=== PATIENT | male | born 1945 | race Caucasian/White ===

== ENCOUNTER 2016-06-20 16:43 | Inpatient (IN) ==
[2016-06-20] MEDS ORDERED: Naloxone 0.4 MG/ML INJ IVP PRN (21:33)
[2016-06-20] MEDS ORDERED: D5% in Water 1,000 ML IV PRN (21:59)
[2016-06-20] MEDS ORDERED: *HR* Dextrose 50 % in Water (Syg) 50 ML SYRINGE IVP PRN (21:59)
[2016-06-20] MEDS ORDERED: Dextrose Gel 15 GM PO PRN ×2 (21:59)
[2016-06-20] MEDS ORDERED: 0.9 % Sodium Chloride 1,000 ML IVC SCH (22:00)
[2016-06-20] MEDS ORDERED: *HR* Heparin 5,000 UNIT/ML VIAL IVP PRN ×2 (22:09)
[2016-06-20 22:13] LABS: ABG Base Excess 3.8 mEq/L (-2.0 to 3.0); ABG HCO3 33.2 mEQ/L (21-27); ABG Oxygen Saturation 97 % (95-98); ABG PH 7.22 pH Units (7.32-7.45); ABG PO2 113 mmHg (85-104); ABG TCO2 35.7 mEq/L (20-26)
[2016-06-20 22:16] LABS: ABG PCO2 81 mmHg (35-45); Blood Gas FiO2 50 %
[2016-06-20 22:29] LABS: Potassium 5.1 mEq/L (3.5-4.5)
[2016-06-20 22:30] LABS: Albumin 3.1 g/dL (3.5-5.0); Albumin/Globulin Ratio 0.7 (1.1-2.2); Bilirubin,Total 0.4 mg/dL (0.2-1.2); Calcium 9.3 mg/dL (8.6-10.8); Globulin 4.5 g/dL (2.4-3.5); Total Protein 7.6 g/dL (6.0-8.3)
--- NOTE | 2016-06-20 22:47 | Internal Med History&Physical ---
<Gail De Jesus - Last Filed: 06/21/16 00:12> Date of Encounter: 06/21/16 Time of Encounter: 21:30 Assessment and Plan (1) Acute and chronic respiratory failure with hypercapnia Current visit: No Status: Acute 1 according to medical records patient aspirated after vomiting, and on then liquids. His wrists to assess declined at outlying facility requiring supplemental oxygen eventually placed on BiPAP. ABG pH 7.22 CO2 81, O2 113 bicarbonate 35. We will continue with BiPAP will recheck ABG in 2 hours. Patient is presently DNR CCA with discussed with patient cared status and wishes concerning intubation. 2 bronchodilators 3 make patient nothing by mouth 4 recheck chest x-ray 5 modified barium swallow once stable (2) Sepsis Current visit: Yes Status: Acute 1 patient presented with respiratory rate greater than 20 white count 13.1 acute respiratory failure requiring BiPAP as well as a creatinine greater than 2. Patient is positive for UTI as well as possibly aspiration pneumonia We will obtain a lactate. We will obtain blood cultures as well as urine culture 2 continuous cardiac monitoring 3 monitor intake and output 4. Coverage with Zosyn and Levaquin. 5 IV fluids Qualifiers: Sepsis type: sepsis due to unspecified organism Qualified Code(s): A41.9 - Sepsis, unspecified organism (3) Pneumonia Current visit: Yes Status: Acute 1 chest x-ray 0 6:00-bilateral perihilar D 16 to the upper and lower lobes. She has episode of vomiting as well as had difficulty swallowing thin liquids. Experiencing respiratory distress requiring BiPAP. Elevated white count 13.1. Blood cultures have been obtained 2 due to patient's renal status will give really dosed antibiotics of Zosyn and Levaquin 3 bronchodilators Qualifiers: Pneumonia type: aspiration pneumonia Aspiration pneumonia type: due to vomit Laterality: bilateral Lung location: unspecified part of lung Qualified Code(s): J69.0 - Pneumonitis due to inhalation of food and vomit (4) UTI (urinary tract infection) Current visit: No Status: Acute Patient being treated for UTI urine culture preliminary 06/19/16 gram-negative rods. Will obtain urine culture to confirm 2 continue with antibiotic treatment Zosyn/levaquin Qualifiers: Urinary tract infection type: site unspecified Hematuria presence: without hematuria Qualified Code(s): N39.0 - Urinary tract infection, site not specified (5) Hyperkalemia Current visit: Yes Status: Acute 1 percent with hyperkalemia potassium was 5.6. Repeat potassium down to 5.1. It appears that this is trending down and we will continue to monitor and administer Kayexalate albuterol calcium gluconate as needed 2 continue with cardiac monitoring (6) Acute on chronic renal failure Current visit: Yes Status: Acute 1. CKd3- Recent creatinine is 3.24 which is sick patient's baseline is around 1.5-2. Suspect this is related to diuretic use. We will hold diuretics as well as lisinopril and metoprolol Continue to monitor creatinine 2 continue with IV fluids 3 we will avoid nephrotoxins renal dose all antibiotics 4 monitor intake and output 5 daily weights 6 monitor electrolytes (7) DM2 (diabetes mellitus, type 2) Current visit: No Status: Acute 1 patient is on basal as well as metformin. We will hold metformin for now will place patient on Accu-Cheks every 6 hours due to nothing by mouth with a sliding scale will hold basal insulin 2 patient is nothing by mouth diabetic diet when patient can eat Qualifiers: Diabetes mellitus complication status: with circulatory complication Diabetes mellitus complication detail: with other circulatory complications Diabetes mellitus nursing home insulin use: with nursing home use Qualified Code(s) : E11.59 - Type 2 diabetes mellitus with other circulatory complications; Z79.4 - terminal worker (current) use of insulin (8) Atrial fibrillation Current visit: Yes Status: Acute Patient is presently in atrial fibrillation with controlled rate. Is on Coumadin for anticoagulation. We will hold Coumadin for now and place patient on heparin drip 2 we will hold meds for now-swallow eval- then resume. May need to use IV meds for rate control Qualifiers: Atrial fibrillation type: chronic Qualified Code(s): I48.2 - Chronic atrial fibrillation (9) DVT prophylaxis Current visit: Yes Status: Acute Patient on heparin drip Internal Medicine - H&P: HPI Chief complaint: SOB Admitted From: Hospital to Hospital Transfer Plans for Post Hospital Care: Transfer Group Home Facility History of present illness: Mr. Sandoval is a 71 year old male past medical history atrial fibrillation CHF COPD coronary artery disease diabetes GERD hyperlipidemia hypertension [place] CKD. Information obtained from medical records as well as nursing staff due to patient's respiratory status. According to staff patient resides at [facility] that he had an altered mental status was transferred to [facility] or evaluation. He was found patient had a UTI as well as dehydrated is admitted for further observation. According to medical records it appears the patient may have aspirated, there was also a decline in patient's renal function. The patient's respiratory status declined requiring BiPAP lab work revealed an elevated white count at 13.1 potassium 5.6 BUN 80 creatinine 3.24 glucose 251. He was transferred to [facility] for further treatment. Presently the patient appears in mild respiratory distress with labored respirations oxygen saturation drops to 88 with position change. He can only speak in short sentences. He is on BiPAP 10/6 FiO2 50% oxygen saturation 96% at rest. Lungs sounds are diminished with faint expiratory wheeze. He is alert oriented and following commands at this time. He denies any chest pain nausea palpitations. EKG ABG chest x-ray have been ordered stat. Reviewed this case with who agrees with plan. Past Med Surg Social Fam HX - Past Medical History Medical history: atrial fibrillation, CHF, COPD, coronary artery disease, diabetes, GERD, hyperlipidemia, hypertension, myocardial infarction, peripheral artery disease, renal disease, other Psychiatric history: anxiety - Past Surgical History Surgical History: other - Social History Smoking Status: Former smoker Smokeless Tobacco Status: No Alcohol use: none Drug use: none - Family History Mother Adopted: No Family Member Ethnicity: Non- Living Status: Hx Family Cardiac Disorders: No Hx Family Respiratory Disorders: No Hx Family Cancer: Yes Hx Family GI Disorders: No Hx Family Endocrine Disorder: No Hx Family Neuromuscular Disorders: No Hx Family Neurologic Disorders: No Hx Family HEENT Disorders: No Hx Family Autoimmune Disorders: No Internal Medicine - H&P: Meds Carvedilol [Coreg] 25 mg PO BID 12/14/14 [History] Isosorbide MONOnitrate (24 HR) [Imdur] 120 mg PO DAILY 12/14/14 [History] Lisinopril [Zestril] 40 mg PO DAILY 12/14/14 [History] Omeprazole [PriLOSEC] 20 mg PO DAILY 12/14/14 [History] Atorvastatin [Lipitor] 20 mg PO HS 01/21/15 [History] Citalopram [CeleXA] 20 mg PO DAILY 01/21/15 [History] Magnesium Oxide [Mag-Ox] 400 mg PO BID 01/21/15 [History] Warfarin [Coumadin] 9 mg PO DAILY 01/21/15 [History] Ipratropium/Albuterol Neb [Duoneb] 3 ml IH Q6HR 02/13/15 [History] L. Acidophilus/Pectin, [place] [Acidophilus Probiotic Capsule] 1 each PO BID [History] Ferrous Sulfate 325 mg PO DAILY 03/16/15 [History] Furosemide [Lasix] 80 mg PO BID 03/16/15 [History] Gabapentin [Neurontin] 300 mg PO TID 03/16/15 [History] Diltiazem CD (24hr) [Cardizem CD] 180 mg PO DAILY 04/16/15 [History] Insulin ASPART [NovoLOG] 6 unit SQ TIDWM 04/16/15 [History] Vitamin B Complex/Vit C/Vit E [Stresstab] 1 tab PO DAILY 04/16/15 [History] Docusate [Colace] 100 mg PO BID PRN #0 capsule 04/25/15 [Rx] Montelukast [Singulair] 10 mg PO DAILY tablet 04/25/15 [Rx] Spironolactone [Aldactone] 25 mg PO DAILY tablet 04/25/15 [Rx] Cholecalciferol (Vitamin D3) [Vitamin D] 50,000 unit PO QMONTH 03/21/16 [History ] Insulin DETEMIR [Levemir] 60 unit SQ HS 03/21/16 [History] Metformin [Glucophage] 500 mg PO DAILY 03/21/16 [History] Tizanidine HCl [Zanaflex] 2 mg PO QID 03/21/16 [History] Fluticasone/Salmeterol [Advair 500-50 Diskus] 1 each IH BID 06/19/16 [History] Promethazine [Phenergan] 25 mg RC Q4H PRN 06/19/16 [History] Allergies No Known Allergies Allergy (Verified 03/16/15 20:15) ROS unobtainable: other All Systems PM: A 10-system review of systems was performed and is negative for pertinent findings except as documented above in the HPI. - Constitutional Vitals: Temp Pulse Resp BP Pulse Ox 99.4 F 89 23 138/81 96 06/20/16 21:19 06/20/16 21:19 06/20/16 21:19 06/20/16 21:19 06/20/16 21:19 General appearance: Present: mild distress, A&O X 3, morbidly obese - Head Head exam: Present: atraumatic, normocephalic - Neck Neck exam general surgery: Present: supple, trachea midline. Absent: lymphadenopathy - Respiratory Respiratory exam: Present: decreased breath sounds, respiratory distress, wheezes. Absent: accessory muscle use, rales, rhonchi - Cardiovascular Cardiovascular exam: Present: RRR, +S1, +S2. Absent: diastolic murmur, gallop, rubs, systolic murmur - GI/Abdominal GI/Abdominal exam: Present: normal bowel sounds, soft, no peritoneal signs. Absent: distended, tenderness - Extremities Exam Extremities exam: Present: warm, radial pulses palpable and symetrical. Absent : calf tenderness, cyanotic, pedal edema Additional comments: Right BKA - Neurological Exam Neurological exam: Present: CN II-XII intact, oriented X3, no focal deficits. Absent: pronater drift, facial droop, speech deficit - Skin Skin exam: Present: dry, intact Internal Med - H&P Results - Labs CBC & Chem 7: 06/20/16 22:54 06/20/16 22:06 Labs: BMP 06/20/16 22:06 Sodium 138 Potassium 5.1 H Chloride 100 Carbon Dioxide 26 BUN 91 H Creatinine 3.66 H Glucose 167 H Calcium 9.3 Liver Function 06/20/16 Range/Units 22:06 Total Bilirubin 0.4 (0.2-1.2) mg/dL AST 13 (5-34) Units/L ALT 14 (0-55) Units/L Alkaline Phosphatase 73 (38-126) Units/L Albumin 3.1 L (3.5-5.0) g/dL - ABG Interpretation ABG results: 06/20/16 22:00 ABG pH 7.22 L ABG pCO2 81 H* ABG pO2 113 H ABG HCO3 33.2 H ABG Total CO2 35.7 H ABG O2 Saturation 97 ABG Base Excess 3.8 H Interpretation: respiratory acidosis - EKG Data EKG comments: 06/20/16 23:06 Atrial fibrillation-I reviewed this EKG with - Impressions ITS Impressions Chest X-Ray 06/20/16 21:12 IMPRESSION: Limited portable chest with low lung volumes. Cardiomegaly with no overt failure or focal pulmonary process. D/ / Braxton Lowe MD / Braxton Lowe MD Interpreting Provider: Braxton Lowe MD - Diagnostic Studies Chest x-ray Additional comments: Per radiology read 06/20/16 0 6:00 Bilateral perihilar opacities extending to the upper and lower lobes. <ClaudiojasonBilly - Last Filed: 06/21/16 02:17> Date of Encounter: 06/21/16 - Constitutional Vitals: Temp Pulse Resp BP Pulse Ox 98.9 F 87 21 142/81 95 06/21/16 00:18 06/21/16 00:18 06/21/16 00:18 06/21/16 00:18 06/21/16 00:18 General appearance: Present: mild distress, A&O X 3, morbidly obese - Head Head exam: Present: atraumatic, normal inspection - Eye Eye exam: Present: EOMI, PERRL. Absent: scleral icterus Pupils: Present: normal accommodation - ENT ENT exam: Present: mucous membranes dry, normal external ear exam Additional comments: Bipap mask in place - Neck Neck exam general surgery: Present: full ROM, supple - Respiratory Respiratory exam: Present: decreased breath sounds, respiratory distress (mild to moderate), wheezes, tachypnea. Absent: chest wall tenderness - Cardiovascular Cardiovascular exam: Present: irregular rhythm. Absent: +S1, +S2, systolic murmur - GI/Abdominal GI/Abdominal exam: Present: normal bowel sounds, soft. Absent: hepatomegaly, splenomegaly, tenderness - Extremities Exam Extremities exam: Present: warm. Absent: tenderness - Back Exam Back exam: Absent: CVA tenderness (L), CVA tenderness (R) - Neurological Exam Neurological exam: Present: CN II-XII intact, oriented X3, no focal deficits - Psychiatric Psychiatric exam: Present: normal affect, normal mood - Skin Skin exam: Present: dry, warm. Absent: rash Internal Med - H&P Results - Labs CBC & Chem 7: 06/20/16 22:54 06/21/16 00:30 Labs: Short CBC 06/20/16 Range/Units 22:54 WBC 12.6 H (4.3-11.1) K/mcL Hgb 10.5 L (12.9-16.9) g/dL Hct 35.1 L (37.5-50.1) % Plt Count 200 (140-400) K/mcL BMP 06/20/16 06/21/16 22:06 00:30 Sodium 138 Potassium 5.1 H 5.0 H Chloride 100 Carbon Dioxide 26 BUN 91 H Creatinine 3.66 H Glucose 167 H Calcium 9.3 Cardiac Enzymes 06/20/16 Range/Units 22:54 Troponin I 0.04 H* (0-0.03) ng/mL Liver Function 06/20/16 Range/Units 22:06 Total Bilirubin 0.4 (0.2-1.2) mg/dL AST 13 (5-34) Units/L ALT 14 (0-55) Units/L Alkaline Phosphatase 73 (38-126) Units/L Albumin 3.1 L (3.5-5.0) g/dL - ABG Interpretation Interpretation: ABG interpreted by me ABG results: 06/20/16 22:00 ABG pH 7.22 L ABG pCO2 81 H* ABG pO2 113 H ABG HCO3 33.2 H ABG Total CO2 35.7 H ABG O2 Saturation 97 ABG Base Excess 3.8 H Interpretation: respiratory acidosis - EKG Data -: EKG Interpreted by Myself - Impressions ITS Impressions Chest X-Ray 06/20/16 21:12 IMPRESSION: Limited portable chest with low lung volumes. Cardiomegaly with no overt failure or focal pulmonary process. D/ / Braxton Lowe MD / Braxton Lowe MD Interpreting Provider: Braxton Lowe MD - Attending Attestation I discussed the patient [place], PMH, lab data, exam findings, and plan with Gail De Jesus. I then saw and examined patient independently as well. Pt is in mild to moderate respiratory distress, even on BiPap. I explained to him the nature of his illness, including respiratory failure. I informed him that if he fails BiPap, then the next step would be to proceed with intubation and mechanical ventilation or palliative/comfort care. I asked him to clarify his code status. Once I explained the above, he does agree and wish to proceed with FULL CODE. As such, I'll change his Code status. I reviewed his labs, images, and EKG. I requested another ABG a few hours after the initial ABG upon presentation. We will continue with treatment as detailed by Gail. Should his status decline, we will proceed with appropriate measures. Other than my comments above and noted exam findings, I agree with Gail's assessment and plan.
[2016-06-20] MEDS ORDERED: Levofloxacin 750 MG/150 ML 750 MG/150 ML BAG IVPB SCH (23:00)
[2016-06-20 23:05] LABS: Hematocrit 35.1 % (37.5-50.1); Hemoglobin 10.5 g/dL (12.9-16.9); Mean Corpuscular HGB Conc 29.9 g/dL (31.6-35.5); Mean Corpuscular Hemoglobin 25.9 pg (28.0-33.3); Mean Corpuscular Volume 86.5 fL (83.0-100.0); Mean Platelet Volume 10.1 fL (9.4-12.4); Platelet Count 200 K/mcL (140-400); Red Blood Count 4.06 M/mcL (4.19-5.50); Red Cell Distribution Width 15.5 % (11.5-14.5)
[2016-06-20 23:09] LABS: INR 1.6; Prothrombin Time 17.1 Seconds (9.4-12.1)
[2016-06-20 23:12] LABS: Activated Partial Thrombo Time 32.3 Seconds (26.0-36.0)
[2016-06-20] MEDS: Heparin 25,000 UNIT/500 ML D5W 25,000 UNIT/500 ML MLS IVC SCH (23:17)
[2016-06-20] MEDS: Ipratropium/Albuterol Neb 3 ML IH SCH (23:45)
[2016-06-20] MEDS: Piperacillin/Tazobactam 3.375 GM in D5% in Water (Mini-Bag+) 100 ML IVPB SCH (23:54)
[2016-06-21] MEDS: Albuterol 2.5 MG/3 ML NEBULIZER IH PRN ×2 (01:13→20:49)
[2016-06-21] MEDS: Insulin LISPRO 300 UNITS/3 ML VIAL SQ SCH ×4 (01:48→18:00)
[2016-06-21 04:56] LABS: ABG Base Excess 3.2 mEq/L (-2.0 to 3.0); ABG HCO3 32.1 mEQ/L (21-27); ABG Oxygen Saturation 96 % (95-98); ABG PH 7.24 pH Units (7.32-7.45); ABG PO2 96 mmHg (85-104); ABG TCO2 34.4 mEq/L (20-26)
[2016-06-21 04:57] LABS: Blood Gas FiO2 40 %; Blood Gas PEEP 6 cm H2O; Blood Gas Respiration Rate 16
[2016-06-21 04:58] LABS: ABG PCO2 75 mmHg (35-45)
[2016-06-21] MEDS: Ipratropium/Albuterol Neb 3 ML IH SCH ×4 (05:10→23:57)
[2016-06-21 06:23] LABS: Basophils # 0.1 K/mcL (0.0-0.2); Basophils % 0.5 %; Eosinophils # 0.2 K/mcL (0.0-0.6); Hemoglobin 9.6 g/dL (12.9-16.9); Immature Granulocytes % 1.2 % (0-4); Lymphocytes % 8.9 %; Mean Corpuscular Hemoglobin 25.9 pg (28.0-33.3); Mean Corpuscular Volume 86.3 fL (83.0-100.0); Mean Platelet Volume 10.3 fL (9.4-12.4); Monocytes # 0.5 K/mcL (0.0-1.3); Neutrophils # 9.3 K/mcL (1.6-8.9); Platelet Count 175 K/mcL (140-400); Red Blood Count 3.71 M/mcL (4.19-5.50); Red Cell Distribution Width 15.6 % (11.5-14.5); Segmented Neutrophils % 83.4 %
[2016-06-21 06:39] LABS: Calcium 9.2 mg/dL (8.6-10.8); Magnesium 1.9 mg/dL (1.6-2.6); Phosphorous 4.2 mg/dL (2.3-4.7); Potassium 4.7 mEq/L (3.5-4.5)
--- NOTE | 2016-06-21 08:15 | Internal Med Progress Note ---
Date of Encounter: 06/21/16 Time of Encounter: 08:13 - Assessment and plan (1) Acute on chronic renal failure Current Visit: Yes Status: Acute Assessment and plan: Nonoliguric JONELLE on CKD stage III. Previously seen by Dr. Lin for [facility] about 3 yr ago for JONELLE in the setting of sepsis and vanco toxicity Presently with a UTI, acute respiratory failure on BiPAP and acute encephalopathy Mild hyperkalemia s/p Kayexalate. Follow retroperitoneal USS Urine culture with Proteus Mirabilis ESBL, E. Coli ESBL Sensitive to Amikacin, Cefoxitin, Ertaenem, Meropenem, Zosyn, Tobramycin Resistant to Levofloxacin which is patient's current regimen Continue ZOsyn at same dose Follow renal USS, r/p pyelo/perinephric abscess (2) Atrial fibrillation Current Visit: Yes Status: Chronic Assessment and plan: HR controlled, Resume patient's home meds Patient on warfarin, resume same Hold heparin drip for now Qualifiers: Atrial fibrillation type: chronic Qualified Code(s): I48.2 - Chronic atrial fibrillation (3) Hyperkalemia Current Visit: Yes Status: Acute Assessment and plan: Improving Renal on board, continue medical management Hold ACEI, HOld spironolactone (4) COPD with acute exacerbation Current Visit: Yes Status: Acute Assessment and plan: Continue duonebs, current regimen (5) Chronic indwelling Olmos catheter Current Visit: Yes Status: Chronic (6) DM2 (diabetes mellitus, type 2) Current Visit: Yes Status: Chronic Assessment and plan: FS acceptable Continue current regimen and sliding scale Hold levemir till patient starts to adequately tolerate po Qualifiers: Diabetes mellitus complication status: with circulatory complication Diabetes mellitus complication detail: with other circulatory complications Diabetes mellitus 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 Qualified Code(s) : E11.59 - Type 2 diabetes mellitus with other circulatory complications; Z79.4 - dedicated intermodal truck driver (current) use of insulin (7) History of CHF (congestive heart failure) Current Visit: Yes Status: Chronic (8) History of hyperlipidemia Current Visit: Yes Status: Chronic (9) Morbid obesity Current Visit: Yes Status: Chronic Qualifiers: Obesity type: with alveolar hypoventilation Qualified Code(s): 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 transplanted heart: [place] heart Associated angina: without angina Qualified Code(s): I25.10 - Atherosclerotic heart disease of [place] coronary artery without angina pectoris (11) PAD (peripheral artery disease) Current Visit: Yes Status: Chronic (12) Dysphagia Current Visit: Yes Status: Acute Assessment and plan: Speech eval Attempt restarting home meds Qualifiers: Dysphagia type: unspecified Qualified Code(s): R13.10 - Dysphagia, unspecified - Subjective Interval history: Initial encounter 72-year-old male with morbid obesity, JESS/OHS, chronic respiratory male, 60 daily stage III, type 2 diabetes mellitus, atrial fibrillation, CAD, coronary artery disease, GERD, hyperlipidemia, hypertension, BPH with chronic indwelling urethral catheter Patient was transferred from [facility] for management of acute on chronic respiratory acidosis, acute on chronic hypercarbic respiratory failure, JONELLE on CKD III, and complicated urinary tract infection. Seen at bedside, along with RN. On BiPAP. Chart review reveals improvement in ABG 7.31(7.24), PCO2 59(75), PO2 83(96), leukocytosis with left shift, JONELLE on CKD, mild hyperkalemia, adynamic stable troponin CXR with no infiltrates - Constitutional Vitals: Temp Pulse Resp BP Pulse Ox 98.2 F 90 20 142/90 96 06/21/16 04:19 06/21/16 04:21 06/21/16 05:10 06/21/16 05:10 06/21/16 05:10 General appearance: Present: A&O X 3, morbidly obese, pleasant, no acute distress - Head Head exam: Present: atraumatic, normocephalic - Eye Eye exam: Present: PERRL, conjuntiva pink, sclera anicteric - ENT ENT exam: Present: mucous membranes dry - Neck Additional comments: Large neck - Respiratory Additional comments: Equal Chest movements bilaterally lungs are clear to auscultation bilaterally. - Cardiovascular Cardiovascular exam: Present: distant heart sounds, irregular rhythm, +S1, +S2. Absent: systolic murmur - GI/Abdominal Additional comments: Obese, soft, nontender, no palpable hepatosplenomegaly. Bowel sounds are present and normoactive. - Additional comments: Indwelling Olmos draining clear urine. - Extremities Exam Additional comments: Status post right above knee amputation, stump is clean and dry Left lower extremity with no pedal edema. - Neurological Exam Neurological exam: Present: alert, oriented X3, no focal deficits, strengths equal and symetr throughout. Absent: pronater drift, facial droop, speech deficit - Skin Skin exam: Present: dry, intact Internal Medicine: Result - Labs CBC & Chem 7: 06/21/16 06:11 06/21/16 06:11 Labs: Short CBC 06/20/16 06/21/16 Range/Units 22:54 06:11 WBC 12.6 H 11.2 H (4.3-11.1) K/mcL Hgb 10.5 L 9.6 L (12.9-16.9) g/dL Hct 35.1 L 32.0 L (37.5-50.1) % Plt Count 200 175 (140-400) K/mcL Neutrophils # 9.3 H (1.6-8.9) K/mcL BMP 06/20/16 06/21/16 06/21/16 22:06 00:30 06:11 Sodium 138 137 Potassium 5.1 H 5.0 H 4.7 H Chloride 100 101 Carbon Dioxide 26 26 BUN 91 H 84 H Creatinine 3.66 H 3.09 H Glucose 167 H 204 H Calcium 9.3 9.2 Cardiac Enzymes 06/20/16 06/21/16 Range/Units 22:54 06:11 Troponin I 0.04 H* 0.04 H* (0-0.03) ng/mL Liver Function 06/20/16 Range/Units 22:06 Total Bilirubin 0.4 (0.2-1.2) mg/dL AST 13 (5-34) Units/L ALT 14 (0-55) Units/L Alkaline Phosphatase 73 (38-126) Units/L Albumin 3.1 L (3.5-5.0) g/dL - ABG Interpretation ABG results: ABG ABG pH 7.24 pH Units (7.32-7.45) L 06/21/16 04:45 ABG pCO2 75 mmHg (35-45) H* 06/21/16 04:45 ABG pO2 96 mmHg (85-104) 06/21/16 04:45 ABG O2 Saturation 96 % (95-98) 06/21/16 04:45 PT/INR, D-dimer PT 17.1 Seconds (9.4-12.1) H 06/20/16 22:54 - Impressions Impressions Chest X-Ray 06/20/16 21:12 IMPRESSION: Limited portable chest with low lung volumes. Cardiomegaly with no overt failure or focal pulmonary process. D/ / Braxton Lowe MD / Braxton Lowe MD Interpreting Provider: Braxton Lowe MD Consult Discharge Plan - Plan Referrals: Joanna Chacko MD [Primary Care Provider] -
[2016-06-21 08:36] LABS: ABG Base Excess 2.6 mEq/L (-2.0 to 3.0); ABG HCO3 29.7 mEQ/L (21-27); ABG Oxygen Saturation 95 % (95-98); ABG PCO2 59 mmHg (35-45); ABG PH 7.31 pH Units (7.32-7.45); ABG PO2 83 mmHg (85-104); ABG TCO2 31.5 mEq/L (20-26); Blood Gas FiO2 40 %
[2016-06-21] MEDS ORDERED: Levofloxacin 750 MG/150 ML 750 MG/150 ML BAG IVPB SCH (09:00)
[2016-06-21] MEDS: Heparin 25,000 UNIT/500 ML D5W 25,000 UNIT/500 ML MLS IVC SCH (10:00)
--- NOTE | 2016-06-21 10:04 | Nephrology Consult Note ---
Date of Encounter: 06/21/16 Time of Encounter: 08:15 Assessment and Plan (1) Acute kidney injury Current Visit: Yes Status: Acute Nonoliguric JONELLE on CKD stage III. Previously seen by Dr. Lin for [facility] about 3 yr ago for JONELLE in the setting of sepsis and vanco toxicity Presently with a UTI, acute respiratory failure on BiPAP and acute encephalopathy Mild hyperkalemia s/p Kayexalate. SCr trending better with IVF: recommend continuing the volume expansion as tolerated No urgent need for S[employer]. Hx of chronic indwelling grajeda catheter, but with the UTI, I will check a renal U/S to look for echogenicity or perirenal fluid (that might be seen with pyelonephritis) Follow a renal protective strategy: dose Rx by GFR, avoid NSAIDs, Bactrim, Contrast as able. Strict I/Os and Daily weights. Thank you for consulting the [facility] group. Will follow with you. (2) Acute encephalopathy Current Visit: Yes Status: Acute (3) Acute on chronic renal failure Current Visit: Yes Status: Acute (4) Hyperkalemia Current Visit: Yes Status: Acute (5) Pneumonia Current Visit: Yes Status: Acute Qualifiers: Pneumonia type: aspiration pneumonia Aspiration pneumonia type: due to vomit Laterality: bilateral Lung location: unspecified part of lung Qualified Code(s): J69.0 - Pneumonitis due to inhalation of food and vomit History of Present Illness - Reason for Consult Consult date: 06/21/16 Acute Kidney Injury, Chronic Kidney Disease Requesting physician: Remington Zuleta - Chief Complaint PNA and UTI - History of Present Illness Dawn Sandoval is a 71 y/o WM with a pmh of previously undiagnosed CKD, obesity, HTN and et al who presented with AMS, shortness of breath and incidental finding of JONELLE on CKD. He was on BiPAP and not able to provide any meaningful history. He was found to have a UTI at the outside ER. Past Med Surg Social Fam HX - Past Medical History Medical history: atrial fibrillation, CHF, COPD, coronary artery disease, diabetes, GERD, hyperlipidemia, hypertension, myocardial infarction, peripheral artery disease, renal disease, other Psychiatric history: anxiety - Past Surgical History Surgical History: other - Social History Smoking Status: Former smoker Smokeless Tobacco Status: No Alcohol use: none Drug use: none - Family History Mother Adopted: No Family Member Ethnicity: Non- Living Status: Hx Family Cardiac Disorders: No Hx Family Respiratory Disorders: No Hx Family Cancer: Yes Hx Family GI Disorders: No Hx Family Endocrine Disorder: No Hx Family Neuromuscular Disorders: No Hx Family Neurologic Disorders: No Hx Family HEENT Disorders: No Hx Family Autoimmune Disorders: No Medications and Allergies Carvedilol [Coreg] 25 mg PO BID 12/14/14 [History] Isosorbide MONOnitrate (24 HR) [Imdur] 120 mg PO DAILY 12/14/14 [History] Lisinopril [Zestril] 40 mg PO DAILY 12/14/14 [History] Omeprazole [PriLOSEC] 20 mg PO DAILY 12/14/14 [History] Atorvastatin [Lipitor] 20 mg PO HS 01/21/15 [History] Citalopram [CeleXA] 20 mg PO DAILY 01/21/15 [History] Magnesium Oxide [Mag-Ox] 400 mg PO BID 01/21/15 [History] Warfarin [Coumadin] 9 mg PO DAILY 01/21/15 [History] Ipratropium/Albuterol Neb [Duoneb] 3 ml IH Q6HR 02/13/15 [History] L. Acidophilus/Pectin, [place] [Acidophilus Probiotic Capsule] 1 cap PO BID 02/13 [History] Ferrous Sulfate 325 mg PO DAILY 03/16/15 [History] Furosemide [Lasix] 80 mg PO BID 03/16/15 [History] Gabapentin [Neurontin] 300 mg PO TID 03/16/15 [History] Diltiazem CD (24hr) [Cardizem CD] 180 mg PO DAILY 04/16/15 [History] Insulin ASPART [NovoLOG] 6 unit SQ TIDWM 04/16/15 [History] Vitamin B Complex/Vit C/Vit E [Stresstab] 1 tab PO DAILY 04/16/15 [History] Docusate [Colace] 100 mg PO BID PRN #0 capsule 04/25/15 [Rx] Montelukast [Singulair] 10 mg PO DAILY tablet 04/25/15 [Rx] Spironolactone [Aldactone] 25 mg PO DAILY tablet 04/25/15 [Rx] Cholecalciferol (Vitamin D3) [Vitamin D] 50,000 unit PO QMONTH 03/21/16 [History ] Insulin DETEMIR [Levemir] 60 unit SQ HS 03/21/16 [History] Tizanidine HCl [Zanaflex] 2 mg PO QID 03/21/16 [History] Fluticasone/Salmeterol [Advair 500-50 Diskus] 1 puff IH BID 06/19/16 [History] Promethazine [Phenergan] 25 mg RC Q4H PRN 06/19/16 [History] Metformin HCl [Metformin HCl ER] 500 mg PO DAILY 06/21/16 [History] Allergies No Known Allergies Allergy (Verified 03/16/15 20:15) Review of Systems ROS unobtainable: due to mental status Exam - Vital Signs Vital signs: Initial Vital Signs Resp Pulse Ox 20 95 06/20/16 20:45 06/20/16 20:45 Vital Signs - Last 8 Hours Temp Pulse Resp BP Pulse Ox 06/21/16 09:51 20 97 06/21/16 08:31 20 97 06/21/16 08:28 98.5 F 96 20 143/63 97 06/21/16 07:35 98.2 F 90 20 142/90 96 06/21/16 05:10 20 142/90 96 06/21/16 04:21 90 06/21/16 04:19 98.2 F 89 15 142/90 96 Intake and Output 06/20/16 06/21/16 06/21/16 23:59 07:59 15:59 Intake Total 460 / 460 0 / 0 Output Total 2074 Balance -1615 / -5 0 / 0 Intake: IV Fluids 460 / 460 Heparin 25,000 UNIT/500 360 / 360 ML D5W 25,000 unit In 500 ml @ 14 UNIT/KG/HR 45.22 mls/hr IVC .Q11H4M THOMAS Rx#:[id number] Zosyn 3.375 GM In 100 / 100 Dextrose 5% (Minibag+) 100 ML 100 ML @ 25 mls/hr IVPB Q12H THOMAS Rx#: [id number] Oral 0 / 0 0 / 0 Output: Catheter 2074 Other: Meal Breakfast Percent of Meal Consumed 0% Weight 161.5 kg 161.8 kg Blood Glucose* 168 213 Patient Weight 06/21/16 23:59 Weight 161.8 kg - General Appearance General appearance: well-developed, well-nourished, obese, moderate distress, frail EENT: ATNC, PERRL, mucous membranes dry Neck: supple Respiratory: wheezing, course breath sounds Cardiology: edema, regular rate, normal S1, normal S2 Gastrointestinal: normoactive bowel sounds, no tenderness, no guarding Integumentary: no rash, warm and dry Neurologic: no focal deficit, no asterixis Musculoskeletal: no deformities, no clubbing Psychiatric: cooperative Results - Lab Results 06/22/16 10:49 06/23/16 04:42 Most recent lab results ABG pH 7.31 pH Units (7.32-7.45) L 06/21/16 08:27 ABG pCO2 59 mmHg (35-45) H 06/21/16 08:27 ABG pO2 83 mmHg (85-104) L 06/21/16 08:27 ABG HCO3 29.7 mEQ/L (21-27) H 06/21/16 08:27 ABG O2 Saturation 95 % (95-98) 06/21/16 08:27 Calcium 9.2 mg/dL (8.6-10.8) 06/21/16 06:11 Phosphorus 4.2 mg/dL (2.3-4.7) 06/21/16 06:11 Magnesium 1.9 mg/dL (1.6-2.6) 06/21/16 06:11 I reviewed the above auto-generated data, including labs, meds, vitals and imaging. Consult Discharge Plan - Plan Referrals: Joanna Chacko MD [Primary Care Provider] - ([facility], NO PCP APPOINTMENT NEEDED)
[2016-06-21] MEDS ORDERED: Acetaminophen 325 MG TABLET PO PRN (11:25)
[2016-06-21] MEDS: Piperacillin/Tazobactam 3.375 GM in D5% in Water (Mini-Bag+) 100 ML IVPB SCH ×2 (11:30→22:45)
[2016-06-21] MEDS ORDERED: Acetaminophen IV 500 MG/50 ML INFUS..BTL IVPB ONE (12:05)
[2016-06-21] MEDS: Magnesium Oxide 400 MG TABLET PO SCH (19:51)
[2016-06-21] MEDS: tiZANidine 4 MG TABLET PO SCH (19:51)
[2016-06-21] MEDS: Gabapentin 300 MG CAPSULE PO SCH (19:51)
[2016-06-21] MEDS: *HR* Warfarin 3 MG TABLET PO SCH (19:51)
[2016-06-21] MEDS ORDERED: Acetaminophen 650 MG RECTAL SUPP RC PRN (20:36)
[2016-06-21] MEDS ORDERED: Insulin DETEMIR 100 UNIT/ML X5UNITS SQ SCH (21:00)
[2016-06-22] MEDS: Insulin LISPRO 300 UNITS/3 ML VIAL SQ SCH ×4 (00:38→17:46)
[2016-06-22] MEDS: Ipratropium/Albuterol Neb 3 ML IH SCH ×4 (04:11→22:57)
[2016-06-22 06:36] LABS: VBG HCO3 34.1 mEq/L (21-27); VBG PH 7.37 pH Units (7.32-7.42)
[2016-06-22 06:39] LABS: Basophils # 0.1 K/mcL (0.0-0.2); Basophils % 0.5 %; Eosinophils # 0.3 K/mcL (0.0-0.6); Eosinophils % 3.3 %; Hematocrit 32.4 % (37.5-50.1); Hemoglobin 9.9 g/dL (12.9-16.9); Immature Granulocytes % 0.7 % (0-4); Immature Platelets 5.2 % (1.1-6.1); Lymphocytes # 0.8 K/mcL (0.6-4.6); Mean Corpuscular HGB Conc 30.6 g/dL (31.6-35.5); Mean Corpuscular Hemoglobin 26.1 pg (28.0-33.3); Mean Corpuscular Volume 85.5 fL (83.0-100.0); Mean Platelet Volume 10.7 fL (9.4-12.4); Monocytes # 0.5 K/mcL (0.0-1.3); Monocytes % 5.5 %; Neutrophils # 7.8 K/mcL (1.6-8.9); Platelet Count 217 K/mcL (140-400); Red Blood Count 3.79 M/mcL (4.19-5.50); Red Cell Distribution Width 15.5 % (11.5-14.5)
[2016-06-22 06:41] LABS: INR 1.6; Prothrombin Time 17.5 Seconds (9.4-12.1)
[2016-06-22 06:44] LABS: Activated Partial Thrombo Time 28.1 Seconds (26.0-36.0)
[2016-06-22 07:00] LABS: Potassium 4.7 mEq/L (3.5-4.5)
[2016-06-22] MEDS ORDERED: *HR* Metoprolol 5 MG/5 ML VIAL IVP PRN (08:15)
[2016-06-22] MEDS: Magnesium Oxide 400 MG TABLET PO SCH ×2 (09:12→20:05)
[2016-06-22] MEDS: Isosorbide MONOnitrate (24 HR) 60 MG TAB.ER.24H PO SCH (09:13)
[2016-06-22] MEDS: Diltiazem CD (24hr) 180 MG CAPSULE PO SCH (09:13)
[2016-06-22] MEDS: tiZANidine 4 MG TABLET PO SCH ×4 (09:13→20:05)
[2016-06-22] MEDS: Gabapentin 300 MG CAPSULE PO SCH ×3 (09:14→20:05)
--- NOTE | 2016-06-22 09:31 | Internal Med Progress Note ---
Date of Encounter: 06/22/16 Time of Encounter: 09:30 - Assessment and plan (1) Acute on chronic renal failure Current Visit: Yes Status: Acute Assessment and plan: Nonoliguric JONELLE on CKD stage III. Improved with increasing Na Presently with ESBL UTI, acute respiratory failure on BiPAP and acute encephalopathy Renal USS pending Urine culture with Proteus Mirabilis ESBL, E. Coli ESBL Sensitive to Amikacin, Cefoxitin, Ertaenem, Meropenem, Zosyn, Tobramycin Resistant to Levofloxacin which is patient's current regimen Continue ZOsyn at same dose Follow renal USS, r/p pyelo/perinephric abscess Continue to monitor I/O Start 1/2 N-S Monitor chem (2) Atrial fibrillation Current Visit: Yes Status: Chronic Assessment and plan: HR controlled, Resume patient's home meds Patient on warfarin, resume same Start on heparin drip without bolus due to patient not receiving Warfarin Qualifiers: Atrial fibrillation type: chronic Qualified Code(s): I48.2 - Chronic atrial fibrillation (3) Hyperkalemia Current Visit: Yes Status: Acute Assessment and plan: Improving Renal on board, continue medical management Hold ACEI, HOld spironolactone (4) COPD with acute exacerbation Current Visit: Yes Status: Acute Assessment and plan: Continue duonebs, current regimen (5) Chronic indwelling Olmos catheter Current Visit: Yes Status: Chronic (6) DM2 (diabetes mellitus, type 2) Current Visit: Yes Status: Chronic Assessment and plan: FS acceptable Continue current regimen and sliding scale Hold levemir till patient starts to adequately tolerate po Qualifiers: Diabetes mellitus complication status: with circulatory complication Diabetes mellitus complication detail: with other circulatory complications Diabetes mellitus longitudinal float operator insulin use: with longitudinal float operator use Qualified Code(s) : E11.59 - Type 2 diabetes mellitus with other circulatory complications; Z79.4 - long term care social worker (current) use of insulin (7) History of CHF (congestive heart failure) Current Visit: Yes Status: Chronic (8) History of hyperlipidemia Current Visit: Yes Status: Chronic (9) Morbid obesity Current Visit: Yes Status: Chronic Qualifiers: Obesity type: with alveolar hypoventilation Qualified Code(s): 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 transplanted heart: rosebud heart Associated angina: without angina Qualified Code(s): I25.10 - Atherosclerotic heart disease of [place] coronary artery without angina pectoris (11) PAD (peripheral artery disease) Current Visit: Yes Status: Chronic (12) Dysphagia Current Visit: Yes Status: Acute Assessment and plan: Speech eval Attempt restarting home meds Qualifiers: Dysphagia type: unspecified Qualified Code(s): R13.10 - Dysphagia, unspecified - Subjective Interval history: 71-year-old male with morbid obesity, JESS/OHS, chronic respiratory male, 60 daily stage III, type 2 diabetes mellitus, atrial fibrillation, CAD, coronary artery disease, GERD, hyperlipidemia, hypertension, BPH with chronic indwelling urethral catheter Patient was transferred from [facility] for management of acute on chronic respiratory acidosis, acute on chronic hypercarbic respiratory failure, JONELLE on CKD III, and complicated urinary tract infection. He has been off BIPAP with stable O2 Sat and PCO2 has improved urine culture with ESBL Klebsiella and E.coli He is making urine I/O -~6L since admission CXR no infiltrates His Cr and GFR are improving but Na is slowly increasing He is seen at bedside Denies new complains Reports some improvement in breathing He continues to have some coughing with trial of po intake especially with medications Speech and Swallow has been consulted Patient did not get his po Warfarin last night Will start him on 0.45 saline and heparin drip Continue other mgt pending speech and swallow eval - Constitutional Vitals: Temp Pulse Resp BP Pulse Ox 98.2 F 86 18 163/94 93 L 06/22/16 07:48 06/22/16 07:48 06/22/16 07:48 06/22/16 07:48 06/22/16 07:48 General appearance: Present: A&O X 3, morbidly obese, pleasant, no acute distress - Head Head exam: Present: atraumatic, normocephalic - Eye Eye exam: Present: PERRL, conjuntiva pink, sclera anicteric Pupils: Present: PERRL - Neck Neck exam general surgery: Present: supple, trachea midline. Absent: lymphadenopathy - Respiratory Respiratory exam: Present: CTAB. Absent: accessory muscle use, rales, rhonchi, wheezes - Cardiovascular Cardiovascular exam: Present: irregular rhythm, +S1, +S2. Absent: JVD, systolic murmur - GI/Abdominal Additional comments: Obese, not tender, no palpably enlarged organs - Extremities Exam Additional comments: s/p R AKA, stump is clean No pedal edema on LLE Essentially normal inspection - Neurological Exam Neurological exam: Present: CN II-XII intact, oriented X3, no focal deficits. Absent: pronater drift, facial droop, speech deficit - Skin Skin exam: Present: dry Internal Medicine: Result - Labs CBC & Chem 7: 06/22/16 10:49 06/22/16 05:26 Labs: Short CBC 06/22/16 Range/Units 05:26 WBC 9.5 (4.3-11.1) K/mcL Hgb 9.9 L (12.9-16.9) g/dL Hct 32.4 L (37.5-50.1) % Plt Count 217 (140-400) K/mcL Neutrophils # 7.8 (1.6-8.9) K/mcL BMP 06/22/16 05:26 Sodium 145 D Potassium 4.7 H Chloride 107 Carbon Dioxide 29 BUN 57 H D Creatinine 1.94 H Glucose 187 H Calcium 10.0 Cardiac Enzymes 06/21/16 Range/Units 13:22 Troponin I 0.04 H* (0-0.03) ng/mL - ABG Interpretation ABG results: ABG ABG pH 7.31 pH Units (7.32-7.45) L 06/21/16 08:27 ABG pCO2 59 mmHg (35-45) H 06/21/16 08:27 ABG pO2 83 mmHg (85-104) L 06/21/16 08:27 ABG O2 Saturation 95 % (95-98) 06/21/16 08:27 PT/INR, D-dimer PT 17.5 Seconds (9.4-12.1) H 06/22/16 05:26 Consult Discharge Plan - Plan Referrals: Joanna Chacko MD [Primary Care Provider] -
[2016-06-22] MEDS: Heparin 25,000 UNIT/500 ML D5W 25,000 UNIT/500 ML MLS IVC SCH (10:28)
--- NOTE | 2016-06-22 10:29 | Event Note ---
Date of Encounter: 06/22/16 Time of Encounter: 10:27 Nephrology Chart Review SCr quickly improving. Large UOP noted, which appears to be an autodiuresis that is often seen during renal recovery. Of note, the serum Na was 145 and if the UOP persists, then he may become hypernatremic, so I recommend consider 1/ 2NS today. No need for APPRENTICE PAINTER HAND. Will continue to follow with you. Thank you.
[2016-06-22 10:56] LABS: Hematocrit 31.7 % (37.5-50.1); Hemoglobin 9.8 g/dL (12.9-16.9); Mean Corpuscular HGB Conc 30.9 g/dL (31.6-35.5); Mean Corpuscular Hemoglobin 26.3 pg (28.0-33.3); Mean Corpuscular Volume 85.2 fL (83.0-100.0); Mean Platelet Volume 10.3 fL (9.4-12.4); Platelet Count 197 K/mcL (140-400); Red Blood Count 3.72 M/mcL (4.19-5.50); Red Cell Distribution Width 15.5 % (11.5-14.5)
[2016-06-22] MEDS: Piperacillin/Tazobactam 3.375 GM in D5% in Water (Mini-Bag+) 100 ML IVPB SCH (12:59)
[2016-06-22] MEDS: *HR* Warfarin 3 MG TABLET PO SCH (19:08)
[2016-06-22] MEDS ORDERED: Heparin 25,000 UNIT/500 ML D5W 25,000 UNIT/500 ML MLS IVC SCH (21:45)
[2016-06-23] MEDS: Piperacillin/Tazobactam 3.375 GM in D5% in Water (Mini-Bag+) 100 ML IVPB SCH ×3 (00:51→21:15)
[2016-06-23] MEDS: Insulin LISPRO 300 UNITS/3 ML VIAL SQ SCH ×6 (00:53→21:45)
[2016-06-23 03:40] LABS: Bilirubin,Urine Negative (Negative); Blood,Urine Moderate (Negative); Clarity,Urine Cloudy (Clear); Color,Urine Yellow (Yellow); Glucose,Urine (UA) Normal (Normal); Ketones,Urine Negative (Negative); Leukocyte Esterase,Urine Large (Negative); Nitrite,Urine Negative (Negative); Protein,Urine 30 mg/dL (Neg-Trace); Specific Gravity,Urine 1.015 (1.010-1.025); Urobilinogen,Urine Normal (Normal)
[2016-06-23 03:42] LABS: Hyaline Casts,Urine None Seen per lpf (None-Few); Squamous Epithelial Cell,Urine Few per lpf (None-Few); WBC,Urine TNTC per hpf (0-3)
[2016-06-23 03:55] LABS: Amorphous Sediment,Urine Few (Few); RBC,Urine 15-30 per hpf (0-3)
[2016-06-23 03:56] LABS: Bacteria,Urine Few per hpf (None-Few); Mucus,Urine Few (Few); Yeast,Urine Moderate per hpf (None Seen)
[2016-06-23 04:54] LABS: INR 1.5; Prothrombin Time 15.9 Seconds (9.4-12.1)
[2016-06-23 04:57] LABS: Activated Partial Thrombo Time 33.3 Seconds (26.0-36.0)
[2016-06-23 05:04] LABS: Calcium 10.2 mg/dL (8.6-10.8); Magnesium 1.9 mg/dL (1.6-2.6); Phosphorous 2.2 mg/dL (2.3-4.7); Potassium 4.6 mEq/L (3.5-4.5)
[2016-06-23] MEDS: Ipratropium/Albuterol Neb 3 ML IH SCH ×4 (05:06→23:35)
[2016-06-23] MEDS: *HR* Heparin 5,000 UNIT/ML VIAL IVP PRN ×3 (05:16→21:17)
[2016-06-23] MEDS: Heparin 25,000 UNIT/500 ML D5W 25,000 UNIT/500 ML MLS IVC SCH ×2 (05:29→15:44)
--- NOTE | 2016-06-23 06:59 | Electrocardiograph Report ---
[address] [address] Test Date: 2016-06-20 Pat Name: Dawn Sandoval Department: 110 Room: 2N07 Gender: M Methods Analyst Data Processing: : 1945 Requested By: Billy Whitehead Order Number: [id number] Reading MD: Cornelio Pena MD Measurements Intervals [place] Rate: 88 P: [place]: 0 QRS: 50 QRSD: 100 T: 261 QT: 373 QTc: 419 Interpretive Statements ATRIAL FIBRILLATION Electronically Signed On 06-23-2016 6:57:07 EST by Cornelio Pena MD
--- NOTE | 2016-06-23 09:26 | Nephrology Progress Note ---
Date of Encounter: 06/23/16 Time of Encounter: 09:24 - Assessment and Plan (1) Acute kidney injury Current Visit: Yes Status: Acute Nonoliuric JONELLE on CKD Stage III. Cr trending down towards baseline. SCr 1.77, GFR 38 06/22 UOP 2250 06/23 UOP 850 so far. Sodium 146 today, slightly elevated from yesterday. Patient has been on 04/28 NS@ 50cc/hr Patient currently has UTI with cultures from 06/19 showing E. coli ESBL and proteus mirabilis ESBL. Olmos catheter in place with clear urine today, patient on zosyn Q12h. Acute respiratory failure resolving, patient on 2L O2 via NC this morning. Acute encephalopathy resolving. Patient alert and oriented to person and place, but confused about time. Per nursing staff patient is demanding water and yelling out for water after being given a glass. Patient yelling out for staff frequently. Patient drinking thickened liquids without difficulty. Plan: -Renal US pending (patient has chronic indwelling catheter, looking for echogenicity of perirenal fluid d/t pyelonephritis) -Recommend stopping IVF, encourage oral intake -Continue to follow renal protective strategy: dose rx by GFR, avoid NSAID, Bactrim and contrast as able -Continue strict I/Os and Daily Weights. -No need for SUPERINTENDENT STATIONS at this time. (2) Acute encephalopathy Current Visit: Yes Status: Acute Improving (3) Acute on chronic renal failure Current Visit: Yes Status: Acute (4) Hyperkalemia Current Visit: Yes Status: Acute Potassium is 4.6 today, continues to trend down s/p kayexalate (5) Pneumonia Current Visit: Yes Status: Acute Qualifiers: Pneumonia type: aspiration pneumonia Aspiration pneumonia type: due to vomit Laterality: bilateral Lung location: unspecified part of lung Qualified Code(s): J69.0 - Pneumonitis due to inhalation of food and vomit Subjective Principal diagnosis: JONELLE on CKD, UTI Interval history: Patient seen and examined today. He denies any complaints, however he is thirsty and requesting water. Objective - Vital Signs Vital signs: Vital Signs Temp Pulse Resp BP Pulse Ox 06/23/16 07:40 79 06/23/16 06:58 87 96 06/23/16 06:55 98.1 F 72 20 159/91 93 L 06/23/16 05:30 98.1 F 69 22 151/84 93 L 06/23/16 05:06 19 99 06/23/16 04:28 98.3 F 76 98 06/23/16 03:29 65 130/84 98 06/23/16 02:11 24 130/84 98 06/23/16 02:00 98.3 F 63 130/84 98 06/23/16 00:35 98.3 F 79 26 130/84 100 06/22/16 23:15 67 06/22/16 22:58 29 99 06/22/16 19:47 90 06/22/16 19:06 98.7 F 85 20 126/77 93 L 06/22/16 16:27 98.5 F 84 20 121/74 92 L 06/22/16 16:00 84 06/22/16 15:15 16 121/74 94 L 06/22/16 13:00 20 94 L 06/22/16 11:48 99.1 F 97 20 138/85 94 L 06/22/16 09:43 16 138/85 94 L Intake and Output 06/22/16 06/23/16 06/23/16 23:59 07:59 15:59 Intake Total 270 / 270 1330 / 1330 Output Total 1250 / 1250 850 / 850 Balance -980 / -980 480 / 480 Intake: IV Fluids 270 / 270 1330 / 1330 0.45% Sodium Chloride 1000 / 1000 1000 Ml 1000 Ml 1,000 ML @ 50 mls/hr IVC .Q20H THOMAS Rx#:[id number] Heparin 25,000 UNIT/500 170 / 170 330 / 330 ML D5W 25,000 unit In 500 ml @ 20 mls/hr IVC .Q24H THOMAS Rx#:[id number] Zosyn 3.375 GM In 100 / 100 Dextrose 5% (Minibag+) 100 ML 100 ML @ 25 mls/hr IVPB Q12H THOMAS Rx#: [id number] Oral 0 / 0 Output: Urine 350 / 350 Catheter 1250 / 1250 500 / 500 Other: Meal Dinner Percent of Meal Consumed 0% Weight 155.7 kg Blood Glucose* 211 193 Patient Weight 06/23/16 23:59 Weight 155.7 kg - General Appearance General appearance: Present: obese, chronically ill EENT: Present: ATNC, PERRL, mucous membranes moist Neck: Present: no JVD, supple Respiratory: Present: course breath sounds Cardiology: Present: no murmurs, no rub, no gallops, no edema, irregular rhythm , normal S1, normal S2 Gastrointestinal: Present: normoactive bowel sounds, no tenderness, no guarding , obese Integumentary: Present: no rash, warm and dry Additional Comments: A&O to person and place. Patient oriented to month, but not correct date and does not know the year. Musculoskeletal: Present: no erythema, no cyanosis, no clubbing Additional Comments: Right AKA Psychiatric: Present: agitated - Lab 06/22/16 10:49 06/23/16 04:42 Most recent lab results ABG pH 7.31 pH Units (7.32-7.45) L 06/21/16 08:27 ABG pCO2 59 mmHg (35-45) H 06/21/16 08:27 ABG pO2 83 mmHg (85-104) L 06/21/16 08:27 ABG HCO3 29.7 mEQ/L (21-27) H 06/21/16 08:27 ABG O2 Saturation 95 % (95-98) 06/21/16 08:27 Calcium 10.2 mg/dL (8.6-10.8) 06/23/16 04:42 Phosphorus 2.2 mg/dL (2.3-4.7) L 06/23/16 04:42 Magnesium 1.9 mg/dL (1.6-2.6) 06/23/16 04:42 - Imaging Kidney/bladder ultrasound: pending - Allied health notes Allied health notes reviewed: nursing Consult Discharge Plan - Plan Referrals: Joanna Chacko MD [Primary Care Provider] - (PT IS FROM [facility], NO PCP APPOINTMENT NEEDED)
--- NOTE | 2016-06-23 09:55 | Internal Med Progress Note ---
Date of Encounter: 06/23/16 Time of Encounter: 09:53 - Assessment and plan (1) Sepsis Current Visit: Yes Status: Acute Assessment and plan: From ESBL UTI JONELLE improving WBC 12.1, rpt a.m Afebrile since admission, continue Zosyn Qualifiers: Sepsis type: sepsis due to unspecified organism Qualified Code(s): A41.9 - Sepsis, unspecified organism (2) Acute on chronic renal failure Current Visit: Yes Status: Acute Assessment and plan: Nonoliguric JONELLE on CKD stage III. Improved with increasing Na Presently with ESBL UTI, acute respiratory failure on BiPAP and acute encephalopathy Renal USS pending Urine culture with Proteus Mirabilis ESBL, E. Coli ESBL Sensitive to Amikacin, Cefoxitin, Ertaenem, Meropenem, Zosyn, Tobramycin Resistant to Levofloxacin which is patient's current regimen, levoquin discontinued 06/21 Continue Zosyn at same dose Follow renal USS, r/p pyelo/perinephric abscess Continue to monitor I/O D/C half saline per renal recs Monitor Chem (3) Atrial fibrillation Current Visit: Yes Status: Chronic Assessment and plan: HR controlled, Resume patient's home meds Patient on warfarin, resume same Continue heparin drip Ensure Warfarin po is started today Qualifiers: Atrial fibrillation type: chronic Qualified Code(s): I48.2 - Chronic atrial fibrillation (4) Hyperkalemia Current Visit: Yes Status: Acute Assessment and plan: Improving Renal on board, continue medical management Hold ACEI, HOld spironolactone (5) COPD with acute exacerbation Current Visit: Yes Status: Acute Assessment and plan: Continue duonebs, current regimen (6) Chronic indwelling Olmos catheter Current Visit: Yes Status: Chronic Assessment and plan: From ECF Change Olmos prior to d/c (7) DM2 (diabetes mellitus, type 2) Current Visit: Yes Status: Chronic Assessment and plan: FS acceptable Continue current regimen and sliding scale Start basal and prandial insulin, patient has started feeding Qualifiers: Diabetes mellitus complication status: with circulatory complication Diabetes mellitus complication detail: with other circulatory complications Diabetes mellitus long term care social worker insulin use: with long term care social worker use Qualified Code(s) : E11.59 - Type 2 diabetes mellitus with other circulatory complications; Z79.4 - group home (current) use of insulin (8) History of CHF (congestive heart failure) Current Visit: Yes Status: Chronic (9) History of hyperlipidemia Current Visit: Yes Status: Chronic (10) Morbid obesity Current Visit: Yes Status: Chronic Qualifiers: Obesity type: with alveolar hypoventilation Qualified Code(s): 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 transplanted heart: inupiat heart Associated angina: without angina Qualified Code(s): I25.10 - Atherosclerotic heart disease of inupiat coronary artery without angina pectoris (12) PAD (peripheral artery disease) Current Visit: Yes Status: Chronic (13) Dysphagia Current Visit: Yes Status: Acute Assessment and plan: Speech eval appreciated Resume po intake Qualifiers: Dysphagia type: unspecified Qualified Code(s): R13.10 - Dysphagia, unspecified - Subjective Interval history: 71-year-old male with morbid obesity, JESS/OHS, chronic respiratory male, CKD stage III, type 2 diabetes mellitus, atrial fibrillation, CAD, coronary artery disease, GERD, hyperlipidemia, hypertension, BPH with chronic indwelling urethral catheter Patient was transferred from [facility] for management of acute on chronic respiratory acidosis, acute on chronic hypercarpnic respiratory failure, JONELLE on CKD III, and sepsis secondary complicated urinary tract infection. He has been off BIPAP with stable O2 Sat and PCO2 has improved urine culture with ESBL Klebsiella and E.coli He is making urine I/O -~6L since admission CXR no infiltrates His Cr and GFR are improving but Na is slowly increasing He is seen at bedside Denies new complains Reports some improvement in breathing Speech and Swallow has evaluated D/C NPO Patient did not get his po Warfarin last night, he is on heparin drip as a bridge Continue half saline Start free water Monitor Chem Renal team is on board, appreciate input - Constitutional Vitals: Temp Pulse Resp BP Pulse Ox 98.1 F 79 20 159/91 96 06/23/16 06:55 06/23/16 07:40 06/23/16 06:55 06/23/16 06:55 06/23/16 06:58 General appearance: Present: A&O X 3, morbidly obese, pleasant, no acute distress - Head Head exam: Present: atraumatic, normocephalic - Eye Eye exam: Present: PERRL, conjuntiva pink, sclera anicteric Pupils: Present: PERRL - Neck Neck exam general surgery: Present: supple, trachea midline. Absent: lymphadenopathy - Respiratory Respiratory exam: Present: CTAB. Absent: accessory muscle use, rales, rhonchi, wheezes - Cardiovascular Cardiovascular exam: Present: irregular rhythm, +S1, +S2. Absent: diastolic murmur, gallop, rubs, systolic murmur - GI/Abdominal GI/Abdominal exam: Present: normal bowel sounds, soft, no peritoneal signs. Absent: distended, tenderness - Extremities Exam Extremities exam: Present: warm, radial pulses palpable and symetrical. Absent : calf tenderness, cyanotic, pedal edema Additional comments: s/p R AKA - Neurological Exam Neurological exam: Present: CN II-XII intact, oriented X3, no focal deficits. Absent: pronater drift, facial droop, speech deficit - Skin Skin exam: Present: dry, intact Internal Medicine: Result - Labs CBC & Chem 7: 06/22/16 10:49 06/23/16 04:42 Labs: Short CBC 06/22/16 Range/Units 10:49 WBC 12.0 H (4.3-11.1) K/mcL Hgb 9.8 L (12.9-16.9) g/dL Hct 31.7 L (37.5-50.1) % Plt Count 197 (140-400) K/mcL BMP 06/23/16 04:42 Sodium 146 H Potassium 4.6 H Chloride 109 Carbon Dioxide 28 BUN 48 H Creatinine 1.77 H Glucose 207 H Calcium 10.2 Urine 06/23/16 Range/Units 02:49 Urine Color Yellow (Yellow) Urine Clarity Cloudy A (Clear) Urine pH 5.0 (5.0-8.0) pH Units Ur Specific [place] 1.015 (1.010-1.025) Urine Protein 30 H (Neg-Trace) mg/dL Urine Glucose (UA) Normal (Normal) mg/dL - ABG Interpretation ABG results: ABG ABG pH 7.31 pH Units (7.32-7.45) L 06/21/16 08:27 ABG pCO2 59 mmHg (35-45) H 06/21/16 08:27 ABG pO2 83 mmHg (85-104) L 06/21/16 08:27 ABG O2 Saturation 95 % (95-98) 06/21/16 08:27 PT/INR, D-dimer PT 15.9 Seconds (9.4-12.1) H 06/23/16 04:42 Consult Discharge Plan - Plan Referrals: Joanna Chacko MD [Primary Care Provider] - (PT IS FROM ECF, NO PCP APPOINTMENT NEEDED)
[2016-06-23] MEDS: Isosorbide MONOnitrate (24 HR) 60 MG TAB.ER.24H PO SCH (10:28)
[2016-06-23] MEDS: Gabapentin 300 MG CAPSULE PO SCH ×3 (10:28→21:14)
[2016-06-23] MEDS: Magnesium Oxide 400 MG TABLET PO SCH ×2 (10:28→21:14)
[2016-06-23] MEDS: Diltiazem CD (24hr) 180 MG CAPSULE PO SCH (10:28)
[2016-06-23] MEDS: tiZANidine 4 MG TABLET PO SCH ×4 (10:28→21:19)
[2016-06-23] MEDS ORDERED: Insulin LISPRO 300 UNITS/3 ML VIAL SQ SCH (17:00)
[2016-06-23] MEDS: *HR* Warfarin 3 MG TABLET PO SCH (17:43)
[2016-06-23] MEDS: Insulin DETEMIR 100 UNIT/ML X5UNITS SQ SCH (21:46)
[2016-06-24] MEDS: Heparin 25,000 UNIT/500 ML D5W 25,000 UNIT/500 ML MLS IVC SCH ×3 (01:28→20:10)
[2016-06-24 04:23] LABS: Basophils # 0.1 K/mcL (0.0-0.2); Basophils % 0.5 %; Eosinophils # 0.4 K/mcL (0.0-0.6); Eosinophils % 3.1 %; Hematocrit 29.1 % (37.5-50.1); Hemoglobin 8.7 g/dL (12.9-16.9); Immature Granulocytes % 0.7 % (0-4); Lymphocytes # 1.9 K/mcL (0.6-4.6); Lymphocytes % 16.1 %; Mean Corpuscular HGB Conc 29.9 g/dL (31.6-35.5); Mean Corpuscular Hemoglobin 26.3 pg (28.0-33.3); Mean Corpuscular Volume 87.9 fL (83.0-100.0); Mean Platelet Volume 10.9 fL (9.4-12.4); Monocytes # 0.8 K/mcL (0.0-1.3); Monocytes % 7.3 %; Neutrophils # 8.3 K/mcL (1.6-8.9); Nucleated Red Blood Cells 0.3 /100 WBC (0); Platelet Count 199 K/mcL (140-400); Red Blood Count 3.31 M/mcL (4.19-5.50); Red Cell Distribution Width 15.5 % (11.5-14.5); Segmented Neutrophils % 72.3 %
[2016-06-24] MEDS: Piperacillin/Tazobactam 3.375 GM in D5% in Water (Mini-Bag+) 100 ML IVPB SCH ×3 (04:34→20:51)
[2016-06-24 04:47] LABS: INR 1.5; Prothrombin Time 16.3 Seconds (9.4-12.1)
[2016-06-24 04:50] LABS: Activated Partial Thrombo Time 62.2 Seconds (26.0-36.0); Calcium 9.5 mg/dL (8.6-10.8); Magnesium 1.7 mg/dL (1.6-2.6); Potassium 4.4 mEq/L (3.5-4.5)
[2016-06-24] MEDS: Ipratropium/Albuterol Neb 3 ML IH SCH ×4 (05:43→22:42)
[2016-06-24] MEDS: Insulin LISPRO 300 UNITS/3 ML VIAL SQ SCH ×7 (08:32→20:55)
[2016-06-24] MEDS: Diltiazem CD (24hr) 180 MG CAPSULE PO SCH (08:33)
[2016-06-24] MEDS: Magnesium Oxide 400 MG TABLET PO SCH ×2 (08:33→20:54)
[2016-06-24] MEDS: tiZANidine 4 MG TABLET PO SCH ×4 (08:33→20:52)
[2016-06-24] MEDS: Isosorbide MONOnitrate (24 HR) 60 MG TAB.ER.24H PO SCH (08:33)
[2016-06-24] MEDS: Gabapentin 300 MG CAPSULE PO SCH ×3 (08:34→20:54)
--- NOTE | 2016-06-24 09:58 | Nephrology Progress Note ---
Date of Encounter: 06/24/16 Time of Encounter: 09:56 - Assessment and Plan (1) Acute kidney injury Current Visit: Yes Status: Acute Nonoliguric JONELLE on CKD Stage III. SCr bumped up to 2.02 from 1.77 yesterday. Patient's IVF was stopped yesterday and he has been drinking fluids orally. He had 2200 oral intake 06/23 with UOP of 1950. grajeda catheter remains in place with straw colored urine. Sodium 139, improved off IVF Patient currently has UTI with cultures from 06/19 showing E. coli ESBL and proteus mirabilis ESBL. Grajeda catheter in place with clear urine today, patient on zosyn Q12h. Acute respiratory failure resolving, patient on 3L O2 via NC this morning with BiPAP at night. Acute encephalopathy resolving. Patient alert and oriented to person and place, but confused about time. Patient drinking thickened liquids without difficulty. Renal US negative for hydronephrosis. Plan: -Encourage oral intake and hold off on IVF for now. Expect SCr to stabilize to his baseline (1.8-2) on oral fluids only. -Continue to follow renal protective strategy: dose rx by GFR, avoid NSAID, Bactrim and contrast as able -Continue strict I/Os and Daily Weights. (2) Acute encephalopathy Current Visit: Yes Status: Acute Improving (3) Acute on chronic renal failure Current Visit: Yes Status: Acute (4) Hyperkalemia Current Visit: Yes Status: Acute Potassium is 4.4 today, continues to trend down s/p kayexalate (5) Pneumonia Current Visit: Yes Status: Acute Subjective Principal diagnosis: JONELLE on CKD, UTI Interval history: Patient seen and examined today. He denies any complaints. He states that he is drinking plenty of water. He is on 3 L O2 via NC during the day and BiPAP at night. Objective - Vital Signs Vital signs: Vital Signs Temp Pulse Resp BP Pulse Ox 06/24/16 05:43 23 118/73 96 06/24/16 05:09 99.1 F 62 31 118/73 97 06/24/16 04:30 56 06/24/16 00:33 64 06/23/16 23:48 99.7 F H 65 22 109/76 97 06/23/16 23:45 23 96 06/23/16 23:35 24 90 L 06/23/16 21:00 99.1 F 72 20 131/66 94 L 06/23/16 19:35 63 06/23/16 17:16 98.5 F 85 18 117/76 95 06/23/16 15:30 61 06/23/16 11:37 18 93 L 06/23/16 11:10 98.4 F 89 18 137/81 92 L 06/23/16 11:00 65 Intake and Output 06/23/16 06/24/16 06/24/16 23:59 07:59 15:59 Intake Total 807 / 807 303 / 303 480 / 480 Output Total 1100 / 1100 225 / 225 Balance -293 / -293 78 / 78 480 / 480 Intake: IV Fluids 297 / 297 303 / 303 Heparin 25,000 UNIT/500 297 / 297 203 / 203 ML D5W 25,000 unit In 500 ml @ 20 mls/hr IVC .Q24H THOMAS Rx#:[id number] Zosyn 3.375 GM In 100 / 100 Dextrose 5% (Minibag+) 100 ML 100 ML @ 25 mls/hr IVPB Q8H THOMAS Rx#: [id number] Oral 510 / 510 0 / 0 480 / 480 Output: Urine 850 / 850 Catheter 250 / 250 225 / 225 Other: Meal Dinner Breakfast Percent of Meal Consumed 100% 100% Weight 135.9 kg Blood Glucose* 227 Patient Weight 06/24/16 23:59 Weight 135.9 kg - General Appearance General appearance: Present: obese, chronically ill EENT: Present: ATNC, PERRL, mucous membranes moist Neck: Present: no JVD, supple Respiratory: Present: course breath sounds Cardiology: Present: edema (trace), irregular rhythm Gastrointestinal: Present: normoactive bowel sounds, no tenderness, no guarding , obese. Absent: distended Integumentary: Present: no rash, warm and dry Additional Comments: Alert and oriented to person, place and month. Patient unaware of time of month or year. Musculoskeletal: Present: no erythema, no cyanosis, no clubbing Additional Comments: R AKA Psychiatric: Present: mood/affect appropriate, cooperative - Lab 06/24/16 03:36 06/24/16 03:36 Most recent lab results ABG pH 7.31 pH Units (7.32-7.45) L 06/21/16 08:27 ABG pCO2 59 mmHg (35-45) H 06/21/16 08:27 ABG pO2 83 mmHg (85-104) L 06/21/16 08:27 ABG HCO3 29.7 mEQ/L (21-27) H 06/21/16 08:27 ABG O2 Saturation 95 % (95-98) 06/21/16 08:27 Calcium 9.5 mg/dL (8.6-10.8) 06/24/16 03:36 Phosphorus 2.2 mg/dL (2.3-4.7) L 06/23/16 04:42 Magnesium 1.7 mg/dL (1.6-2.6) 06/24/16 03:36 - Imaging Kidney/bladder ultrasound: image reviewed Additional Comments: Retroperitoneum Ultrasound 06/23/16 09:30 IMPRESSION: Unremarkable ultrasound of the kidneys and urinary bladder. D/ / 06/23/2016 17:25:04 Jose Harmon MD / pasha Interpreting Provider: Jose Harmon MD - Allied health notes Allied health notes reviewed: nursing Consult Discharge Plan - Plan Referrals: Joanna Chacko MD [Primary Care Provider] - (PT IS FROM ECF, NO PCP APPOINTMENT NEEDED)
--- NOTE | 2016-06-24 10:31 | Internal Med Progress Note ---
Date of Encounter: 06/24/16 Time of Encounter: 10:31 - Assessment and plan (1) Sepsis Current Visit: Yes Status: Acute Assessment and plan: Secondary to ESBL UTI and Proteus mirabilis Afebrile since admission continue Zosyn Qualifiers: Sepsis type: sepsis due to unspecified organism Qualified Code(s): A41.9 - Sepsis, unspecified organism (2) Acute on chronic renal failure Current Visit: Yes Status: Acute Assessment and plan: Nonoliguric JONELLE on CKD stage III. Kidney function worsened from previous day Presently with ESBL UTI, acute respiratory failure on BiPAP and acute encephalopathy Renal US: no hydronephrosis/abscess or abnormality reported Urine culture with Proteus Mirabilis ESBL, E. Coli ESBL Sensitive to Amikacin, Cefoxitin, Ertaenem, Meropenem, Zosyn, Tobramycin Resistant to Levofloxacin which is patient's current regimen, levoquin discontinued 06/21 Continue Zosyn at same dose Continue to monitor I/O Monitor Chem Nephrology consultation appreciated (3) COPD with acute exacerbation Current Visit: Yes Status: Acute Assessment and plan: Continue duonebs, current regimen monitor O2 saturation (goal O2 sat: 89-92%) Patient advised to get out of bed to chair with assistance (4) Atrial fibrillation Current Visit: Yes Status: Chronic Assessment and plan: HR controlled, Continue patient's home meds Patient on warfarin, resume same Continue heparin drip until INR within therapeutic range (2-3) Qualifiers: Atrial fibrillation type: chronic Qualified Code(s): I48.2 - Chronic atrial fibrillation (5) Chronic indwelling Olmos catheter Current Visit: Yes Status: Chronic Assessment and plan: From ECF Change Olmos prior to d/c (6) DM2 (diabetes mellitus, type 2) Current Visit: Yes Status: Chronic Assessment and plan: FS acceptable Continue current regimen and sliding scale continue basal and prandial insulin, patient has started feeding Qualifiers: Diabetes mellitus complication status: with circulatory complication Diabetes mellitus complication detail: with other circulatory complications Diabetes mellitus insurance compliance analyst insulin use: with jail use Qualified Code(s) : E11.59 - Type 2 diabetes mellitus with other circulatory complications; Z79.4 - wind energy mechanic (current) use of insulin (7) History of CHF (congestive heart failure) Current Visit: Yes Status: Chronic (8) History of hyperlipidemia Current Visit: Yes Status: Chronic (9) Morbid obesity Current Visit: Yes Status: Chronic Qualifiers: Obesity type: with alveolar hypoventilation Qualified Code(s): 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 REsting in bed and reports of left elbow pain. Reports of improvement in breathing. No overnight issues were reported. - Constitutional Vitals: Temp Pulse Resp BP Pulse Ox 99.1 F 62 23 118/73 96 06/24/16 05:09 06/24/16 05:09 06/24/16 05:43 06/24/16 05:43 06/24/16 05:43 General appearance: Present: A&O X 3, morbidly obese, pleasant, no acute distress, answers questions appropriately - Head Head exam: Present: atraumatic, normocephalic - Eye Eye exam: Present: PERRL, conjuntiva pink, sclera anicteric - Respiratory Respiratory exam: Present: decreased breath sounds (equal air entry bilaterally) . Absent: respiratory distress, wheezes - Cardiovascular Cardiovascular exam: Present: RRR, +S1, +S2 - GI/Abdominal GI/Abdominal exam: Present: distended (obese), normal bowel sounds, soft. Absent: tenderness - Extremities Exam Extremities exam: Present: pedal edema (s/p right AKA), warm, radial pulses palpable and symetrical. Absent: calf tenderness - Neurological Exam Neurological exam: Present: alert, oriented X3 - Skin Skin exam: Present: warm (bruising noted on bilateral upper extremities ) Internal Medicine: Result - Labs CBC & Chem 7: 06/24/16 03:36 06/24/16 03:36 Labs: Short CBC 06/24/16 Range/Units 03:36 WBC 11.5 H (4.3-11.1) K/mcL Hgb 8.7 L (12.9-16.9) g/dL Hct 29.1 L (37.5-50.1) % Plt Count 199 (140-400) K/mcL Neutrophils # 8.3 (1.6-8.9) K/mcL BMP 06/24/16 03:36 Sodium 139 Potassium 4.4 Chloride 101 Carbon Dioxide 28 BUN 50 H Creatinine 2.02 H Glucose 195 H Calcium 9.5 - ABG Interpretation ABG results: ABG ABG pH 7.31 pH Units (7.32-7.45) L 06/21/16 08:27 ABG pCO2 59 mmHg (35-45) H 06/21/16 08:27 ABG pO2 83 mmHg (85-104) L 06/21/16 08:27 ABG O2 Saturation 95 % (95-98) 06/21/16 08:27 PT/INR, D-dimer PT 16.3 Seconds (9.4-12.1) H 06/24/16 03:36 - Impressions Impressions Retroperitoneum Ultrasound 06/23/16 09:30 IMPRESSION: Unremarkable ultrasound of the kidneys and urinary bladder. D/ / 06/23/2016 17:25:04 Jose Harmon MD / pasha Interpreting Provider: Jose Harmon MD Consult Discharge Plan - Plan Referrals: Joanna Chacko MD [Primary Care Provider] - (PT IS FROM [facility]CF, NO PCP APPOINTMENT NEEDED)
[2016-06-24] MEDS: *HR* Warfarin 3 MG TABLET PO SCH (17:17)
[2016-06-24] MEDS: *HR* OxyCODONE Immed Rel 5 MG TABLET PO PRN (20:52)
[2016-06-24] MEDS: Insulin DETEMIR 100 UNIT/ML X5UNITS SQ SCH (20:52)
[2016-06-25] MEDS: Ipratropium/Albuterol Neb 3 ML IH SCH ×4 (03:58→22:03)
[2016-06-25] MEDS: Heparin 25,000 UNIT/500 ML D5W 25,000 UNIT/500 ML MLS IVC SCH ×2 (04:50→15:06)
[2016-06-25] MEDS: Piperacillin/Tazobactam 3.375 GM in D5% in Water (Mini-Bag+) 100 ML IVPB SCH ×3 (05:07→20:06)
[2016-06-25 05:13] LABS: Basophils # 0.1 K/mcL (0.0-0.2); Basophils % 0.4 %; Eosinophils # 0.2 K/mcL (0.0-0.6); Hematocrit 27.7 % (37.5-50.1); Hemoglobin 8.4 g/dL (12.9-16.9); Immature Granulocytes % 0.9 % (0-4); Lymphocytes # 1.4 K/mcL (0.6-4.6); Lymphocytes % 11.7 %; Mean Corpuscular HGB Conc 30.3 g/dL (31.6-35.5); Mean Corpuscular Hemoglobin 25.8 pg (28.0-33.3); Monocytes # 0.8 K/mcL (0.0-1.3); Monocytes % 6.3 %; Neutrophils # 9.6 K/mcL (1.6-8.9); Nucleated Red Blood Cells 0.2 /100 WBC (0); Platelet Count 200 K/mcL (140-400); Red Blood Count 3.26 M/mcL (4.19-5.50); Red Cell Distribution Width 15.5 % (11.5-14.5); Segmented Neutrophils % 78.7 %
[2016-06-25 05:31] LABS: Calcium 8.7 mg/dL (8.6-10.8); Magnesium 1.5 mg/dL (1.6-2.6); Potassium 4.9 mEq/L (3.5-4.5)
[2016-06-25 05:34] LABS: Phosphorous 4.1 mg/dL (2.3-4.7)
[2016-06-25] MEDS ORDERED: Magnesium Sulfate 1 GM in D5% in Water 100 ML IVPB ONE (08:56)
--- NOTE | 2016-06-25 08:58 | Nephrology Progress Note ---
Date of Encounter: 06/25/16 Time of Encounter: 10:30 - Assessment and Plan (1) Acute kidney injury Current Visit: Yes Status: Acute Nonoliguric JONELLE on CKD Stage III. SCr bumped up to 2.23. Patient has been drinking fluids orally. He had about 2L oral intake 06/24 with UOP of 2024. Net Postitive balance of 1950. Grajeda catheter remains in place with straw colored urine. Sodium 139, improved off IVF Patient currently has UTI with cultures from 06/19 showing E. coli ESBL and proteus mirabilis ESBL. Grajeda catheter in place with clear urine today, patient on zosyn Q12h. Per primary team, grajeda catheter will be replaced today and new UA/UC sent. Acute respiratory failure resolving, patient on 3L O2 via NC this morning with BiPAP at night. Acute encephalopathy resolving. Patient drinking thickened liquids without difficulty. Renal US negative for hydronephrosis. Plan: -Encourage oral intake and continue to hold off on IVF for now. Per primary team the patient was noted to be hypotensive overnight and they have decreased his Carvedilol to 12.5mg PO BID. The hypotensive episode can contribute to the worsening renal function in addition to the underlying infection. Expect SCr to stabilize to his baseline (1.8-2) on oral fluids only. -Mg decreased this AM to 1.5, has been on mag ox 400mg BID. Will add mag sulfate 1gm IV today. -Continue to ensure the patient is on a potassium restricted diet. -Continue to follow renal protective strategy: dose rx by GFR, avoid NSAID, Bactrim and contrast as able -Continue strict I/Os and Daily Weights. Daily weights have been labile. Please ensure accurate daily weights. (2) Acute encephalopathy Current Visit: Yes Status: Acute Improving (3) Acute on chronic renal failure Current Visit: Yes Status: Acute (4) Hyperkalemia Current Visit: Yes Status: Acute Potassium is 4.4 today, continues to trend down s/p kayexalate (5) Pneumonia Current Visit: Yes Status: Acute Qualifiers: Pneumonia type: aspiration pneumonia Aspiration pneumonia type: due to vomit Laterality: bilateral Lung location: unspecified part of lung Qualified Code(s): J69.0 - Pneumonitis due to inhalation of food and vomit Subjective Principal diagnosis: JONELLE on CKD, UTI Interval history: Patient seen and examined today. He complains of SOB and requests a breathing treatment. He also notes that his left hand is painful and swollen. He states that he is drinking plenty of water, but still feels thirsty. He is on 3 L O2 via NC during the day and BiPAP at night. Objective - Vital Signs Vital signs: Vital Signs Temp Pulse Resp BP Pulse Ox 06/25/16 08:12 98.4 F 71 22 157/86 91 L 06/25/16 04:36 98.2 F 58 25 113/61 94 L 06/25/16 04:09 55 26 97/64 95 06/25/16 03:58 26 95 06/24/16 23:39 99.2 F 50 19 97/64 95 06/24/16 22:42 22 95 06/24/16 21:46 85 17 93 L 06/24/16 20:57 99.2 F 65 17 118/83 93 L 06/24/16 17:00 73 18 95 06/24/16 15:44 16 95 06/24/16 15:42 99.9 F H 71 18 108/72 95 06/24/16 15:00 99.9 F H 71 16 108/72 95 06/24/16 13:15 74 06/24/16 12:24 80 06/24/16 11:21 99.4 F 80 20 131/78 91 L 06/24/16 11:00 99.4 F 80 20 131/78 91 L 06/24/16 10:31 16 94 L 06/24/16 09:00 65 18 94 L Intake and Output 06/24/16 06/25/16 06/25/16 23:59 07:59 15:59 Intake Total 960 / 960 660 / 660 Output Total 550 / 550 550 / 550 Balance 410 / 410 110 / 110 Intake: IV Fluids 600 / 600 660 / 660 Heparin 25,000 UNIT/500 500 / 500 560 / 560 ML D5W 25,000 unit In 500 ml @ 20 mls/hr IVC .Q24H [facility] Rx#:[id number] Zosyn 3.375 GM In 100 / 100 100 / 100 Dextrose 5% (Minibag+) 100 ML 100 ML @ 25 mls/hr IVPB Q8H [facility] Rx#: [id number] Oral 360 / 360 Output: Catheter 550 / 550 550 / 550 Other: Meal Dinner Percent of Meal Consumed 100% Weight 140.8 kg Blood Glucose* 239 211 Patient Weight 06/25/16 23:59 Weight 140.8 kg - General Appearance General appearance: Present: obese, chronically ill EENT: Present: ATNC, PERRL, mucous membranes moist Neck: Present: no JVD, supple Respiratory: Present: wheezing, course breath sounds Cardiology: Present: no murmurs, edema (pitting edema to left UE, trace edema to left LE), irregular rhythm Gastrointestinal: Present: normoactive bowel sounds, no tenderness, obese Integumentary: Present: no rash, cool/clammy Neurologic: Present: no focal deficit Musculoskeletal: Present: no erythema, no cyanosis, no clubbing Additional Comments: Right AKA Psychiatric: Present: mood/affect appropriate, cooperative - Lab 06/25/16 04:58 06/25/16 04:58 Most recent lab results ABG pH 7.31 pH Units (7.32-7.45) L 06/21/16 08:27 ABG pCO2 59 mmHg (35-45) H 06/21/16 08:27 ABG pO2 83 mmHg (85-104) L 06/21/16 08:27 ABG HCO3 29.7 mEQ/L (21-27) H 06/21/16 08:27 ABG O2 Saturation 95 % (95-98) 06/21/16 08:27 Calcium 8.7 mg/dL (8.6-10.8) 06/25/16 04:58 Phosphorus 4.1 mg/dL (2.3-4.7) D 06/25/16 04:58 Magnesium 1.5 mg/dL (1.6-2.6) L 06/25/16 04:58 - Allied health notes Allied health notes reviewed: nursing Consult Discharge Plan - Plan Referrals: Joanna Chacko MD [Primary Care Provider] - (PT IS FROM [facility], NO PCP APPOINTMENT NEEDED)
[2016-06-25] MEDS: Isosorbide MONOnitrate (24 HR) 60 MG TAB.ER.24H PO SCH (09:22)
[2016-06-25] MEDS: tiZANidine 4 MG TABLET PO SCH ×4 (09:23→21:31)
[2016-06-25] MEDS: Gabapentin 300 MG CAPSULE PO SCH ×3 (09:23→21:31)
[2016-06-25] MEDS: Magnesium Oxide 400 MG TABLET PO SCH ×2 (09:23→21:31)
[2016-06-25] MEDS: Diltiazem CD (24hr) 180 MG CAPSULE PO SCH (09:23)
[2016-06-25] MEDS: Insulin LISPRO 300 UNITS/3 ML VIAL SQ SCH ×7 (09:24→21:32)
--- NOTE | 2016-06-25 10:30 | Internal Med Progress Note ---
Date of Encounter: 06/25/16 Time of Encounter: 10:27 - Assessment and plan (1) Sepsis Current Visit: Yes Status: Acute Assessment and plan: Secondary to ESBL UTI and Proteus mirabilis Afebrile since admission continue Zosyn Patient continues to have persistent leukocytosis despite adequate antibiotic coverage Will change grajeda catheter today and resend urine cultures Qualifiers: Sepsis type: sepsis due to unspecified organism Qualified Code(s): A41.9 - Sepsis, unspecified organism (2) Acute on chronic renal failure Current Visit: Yes Status: Acute Assessment and plan: Nonoliguric JONELLE on CKD stage III. Kidney function worsened from previous day Presently with ESBL UTI, acute respiratory failure on BiPAP and acute encephalopathy Renal US: no hydronephrosis/abscess or abnormality reported Urine culture with Proteus Mirabilis ESBL, E. Coli ESBL Sensitive to Amikacin, Cefoxitin, Ertaenem, Meropenem, Zosyn, Tobramycin Resistant to Levofloxacin which is patient's current regimen, levoquin discontinued 06/21 Continue Zosyn at same dose Continue to monitor I/O Monitor Chem Nephrology consultation appreciated NOted to be hypotensive overnight. Will decrease Carvedilol to 12.5mg PO q12h with close monitoring of bp. The hypotensive episode can contribute to the worsening renal function in addition to the underlying infection. (3) COPD with acute exacerbation Current Visit: Yes Status: Acute Assessment and plan: Continue duonebs, current regimen monitor O2 saturation (goal O2 sat: 89-92%) Patient advised to get out of bed to chair with assistance (4) Atrial fibrillation Current Visit: Yes Status: Chronic Assessment and plan: HR controlled, Continue patient's home meds Patient on warfarin, resume same Continue heparin drip until INR within therapeutic range (2-3) Qualifiers: Atrial fibrillation type: chronic Qualified Code(s): I48.2 - Chronic atrial fibrillation (5) Chronic indwelling Grajeda catheter Current Visit: Yes Status: Chronic Assessment and plan: From [facility] change grajeda cath today 06/25/16 (6) DM2 (diabetes mellitus, type 2) Current Visit: Yes Status: Chronic Assessment and plan: Hyperglycemia persists Required 30units correctional insulin coverage in the last 24hours. will increase Levemir to 35units qHS and Humalog to 12units TIDAC continue to monitor fingerstick and blood glucose continue sliding scale correctional insulin coverage as needed Qualifiers: Diabetes mellitus complication status: with circulatory complication Diabetes mellitus complication detail: with other circulatory complications Diabetes mellitus manager intermediate insulin use: with residential use Qualified Code(s) : E11.59 - Type 2 diabetes mellitus with other circulatory complications; Z79.4 - terminal block assembler (current) use of insulin (7) History of CHF (congestive heart failure) Current Visit: Yes Status: Chronic (8) History of hyperlipidemia Current Visit: Yes Status: Chronic (9) Morbid obesity Current Visit: Yes Status: Chronic Qualifiers: Obesity type: with alveolar hypoventilation Qualified Code(s): 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 Resting in bed. Reports of improvement in breathing. No overnight issues were reported. - Constitutional Vitals: Temp Pulse Resp BP Pulse Ox 98.4 F 71 22 157/86 91 L 06/25/16 08:12 06/25/16 08:12 06/25/16 08:12 06/25/16 08:12 06/25/16 09:00 General appearance: Present: A&O X 3, morbidly obese, pleasant, no acute distress, answers questions appropriately - Head Head exam: Present: atraumatic, normocephalic - Eye Eye exam: Present: conjuntiva pink, sclera anicteric - Respiratory Respiratory exam: Present: decreased breath sounds (due to morbidly obese body habitus). Absent: respiratory distress, wheezes - Cardiovascular Cardiovascular exam: Present: RRR, +S1, +S2 - GI/Abdominal GI/Abdominal exam: Present: distended (obese), normal bowel sounds, soft. Absent: tenderness - Extremities Exam Extremities exam: Present: pedal edema, warm, radial pulses palpable and symetrical. Absent: calf tenderness - Neurological Exam Neurological exam: Present: alert, oriented X3 - Skin Skin exam: Present: warm (bilateral upper extremity bruising) Internal Medicine: Result - Labs CBC & Chem 7: 06/25/16 04:58 06/25/16 04:58 Labs: Short CBC 06/25/16 Range/Units 04:58 WBC 12.2 H (4.3-11.1) K/mcL Hgb 8.4 L (12.9-16.9) g/dL Hct 27.7 L (37.5-50.1) % Plt Count 200 (140-400) K/mcL Neutrophils # 9.6 H (1.6-8.9) K/mcL BMP 06/25/16 04:58 Sodium 134 L Potassium 4.9 H Chloride 98 Carbon Dioxide 25 BUN 50 H Creatinine 2.23 H Glucose 217 H Calcium 8.7 - ABG Interpretation ABG results: ABG ABG pH 7.31 pH Units (7.32-7.45) L 06/21/16 08:27 ABG pCO2 59 mmHg (35-45) H 06/21/16 08:27 ABG pO2 83 mmHg (85-104) L 06/21/16 08:27 ABG O2 Saturation 95 % (95-98) 06/21/16 08:27 PT/INR, D-dimer PT 16.3 Seconds (9.4-12.1) H 06/24/16 03:36 - Impressions Impressions Humerus X-Ray 06/24/16 20:30 IMPRESSION: 1. No acute osseous abnormality involving the left humerus. D/ / Cortez Treviño MD / Cortez Treviño MD Interpreting Provider: Cortez Treviño MD Elbow X-Ray 06/24/16 21:49 IMPRESSION: 1. No acute osseous abnormality involving the left elbow. D/ / Cortez Treviño MD / Cortez Treviño MD Interpreting Provider: Cortez Treviño MD Forearm X-Ray 06/24/16 21:49 IMPRESSION: 1. No acute osseous abnormality involving the left forearm. D/ / Cortez Treviño MD / Cortez Treviño MD Interpreting Provider: Cortez Treviño MD Consult Discharge Plan - Plan Referrals: Joanna Chacko MD [Primary Care Provider] - (PT IS FROM [facility], NO PCP APPOINTMENT NEEDED)
[2016-06-25 12:26] LABS: INR 1.5; Prothrombin Time 16.9 Seconds (9.4-12.1)
[2016-06-25 12:28] LABS: Activated Partial Thrombo Time 67.3 Seconds (26.0-36.0)
[2016-06-25] MEDS: *HR* Warfarin 3 MG TABLET PO SCH (17:03)
[2016-06-25] MEDS ORDERED: Insulin DETEMIR 100 UNIT/ML X5UNITS SQ SCH (21:00)
[2016-06-25 23:36] LABS: Alpha 2 Globulin (PEP) 1.26 g/dL (0.48-1.05); Beta Globulin (PEP) 0.83 g/dL (0.48-1.10)
[2016-06-26] MEDS: Heparin 25,000 UNIT/500 ML D5W 25,000 UNIT/500 ML MLS IVC SCH ×3 (01:01→17:18)
[2016-06-26 01:48] LABS: Basophils % 0.3 %; Eosinophils # 0.2 K/mcL (0.0-0.6); Eosinophils % 1.8 %; Hematocrit 26.2 % (37.5-50.1); INR 1.7; Immature Granulocytes % 0.8 % (0-4); Lymphocytes # 1.4 K/mcL (0.6-4.6); Lymphocytes % 11.9 %; Mean Corpuscular HGB Conc 30.5 g/dL (31.6-35.5); Mean Corpuscular Volume 85.1 fL (83.0-100.0); Mean Platelet Volume 10.3 fL (9.4-12.4); Monocytes # 0.7 K/mcL (0.0-1.3); Monocytes % 5.9 %; Neutrophils # 9.5 K/mcL (1.6-8.9); Nucleated Red Blood Cells 0.3 /100 WBC (0); Platelet Count 195 K/mcL (140-400); Prothrombin Time 18.8 Seconds (9.4-12.1); Red Blood Count 3.08 M/mcL (4.19-5.50); Red Cell Distribution Width 15.4 % (11.5-14.5); Segmented Neutrophils % 79.3 %
[2016-06-26 01:55] LABS: Calcium 8.7 mg/dL (8.6-10.8); Magnesium 1.7 mg/dL (1.6-2.6); Phosphorous 5.1 mg/dL (2.3-4.7); Potassium 5.3 mEq/L (3.5-4.5)
[2016-06-26] MEDS: Piperacillin/Tazobactam 3.375 GM in D5% in Water (Mini-Bag+) 100 ML IVPB SCH ×3 (04:30→21:56)
[2016-06-26] MEDS: Ipratropium/Albuterol Neb 3 ML IH SCH ×4 (04:58→23:48)
[2016-06-26 07:41] LABS: IFE Reflexed NOT DONE
[2016-06-26] MEDS: Insulin LISPRO 300 UNITS/3 ML VIAL SQ SCH ×7 (08:16→22:03)
[2016-06-26] MEDS: Diltiazem CD (24hr) 180 MG CAPSULE PO SCH (08:19)
[2016-06-26] MEDS: Gabapentin 300 MG CAPSULE PO SCH ×3 (08:20→22:01)
[2016-06-26] MEDS: Isosorbide MONOnitrate (24 HR) 60 MG TAB.ER.24H PO SCH (08:20)
[2016-06-26] MEDS: Magnesium Oxide 400 MG TABLET PO SCH ×2 (08:20→22:03)
[2016-06-26] MEDS: tiZANidine 4 MG TABLET PO SCH ×4 (08:21→22:01)
[2016-06-26] MEDS ORDERED: Furosemide 40 MG/4 ML VIAL IVP ONE (09:07)
--- NOTE | 2016-06-26 11:13 | Internal Med Progress Note ---
Date of Encounter: 06/26/16 Time of Encounter: 11:10 - Assessment and plan (1) Sepsis Current Visit: Yes Status: Acute Assessment and plan: Secondary to ESBL UTI and Proteus mirabilis Afebrile since admission continue Zosyn Patient continues to have persistent leukocytosis despite adequate antibiotic coverage grajeda catheter changed on 06/25/16 f/u repeat Urine cultures ID consultation requested for further management Qualifiers: Sepsis type: sepsis due to unspecified organism Qualified Code(s): A41.9 - Sepsis, unspecified organism (2) Acute on chronic renal failure Current Visit: Yes Status: Acute Assessment and plan: Nonoliguric JONELLE on CKD stage III. Kidney function worsened from previous day Patient may have cardiorenal syndrome given worsening renal function despite avoidance of nephrotoxic agents Presently with ESBL UTI, acute respiratory failure on BiPAP and acute encephalopathy Renal US: no hydronephrosis/abscess or abnormality reported Urine culture with Proteus Mirabilis ESBL, E. Coli ESBL Continue Zosyn at same dose Continue to monitor I/O Hypotension noted overnight, this can contribute to worsening renal function, will hold Carvedilol dosing this evening if noted to be hypotensive. Will do a trial of diuresis with Lasix 40mg IV x 1 dose hyperkalemia noted, will give one dose of kayexalate closely monitor chemistry and renal profile Nephrology consultation appreciated (3) COPD with acute exacerbation Current Visit: Yes Status: Acute Assessment and plan: Continue duonebs, current regimen monitor O2 saturation (goal O2 sat: 89-92%) out of bed to chair with assistance (4) Atrial fibrillation Current Visit: Yes Status: Chronic Assessment and plan: HR controlled, Continue patient's home meds Patient on warfarin, resume same Continue heparin drip until INR within therapeutic range (2-3) Qualifiers: Atrial fibrillation type: chronic Qualified Code(s): I48.2 - Chronic atrial fibrillation (5) Chronic indwelling Grajeda catheter Current Visit: Yes Status: Chronic Assessment and plan: From [facility]CF changed grajeda cath 06/25/16 (6) DM2 (diabetes mellitus, type 2) Current Visit: Yes Status: Chronic Assessment and plan: Hyperglycemia persists Required 26units correctional insulin coverage in the last 24hours. will increase Levemir to 48units qHS and Humalog to 16units TIDAC continue to monitor fingerstick and blood glucose continue sliding scale correctional insulin coverage as needed Qualifiers: Diabetes mellitus complication status: with circulatory complication Diabetes mellitus complication detail: with other circulatory complications Diabetes mellitus prison insulin use: with watermelon harvesting supervisor use Qualified Code(s) : E11.59 - Type 2 diabetes mellitus with other circulatory complications; Z79.4 - assistant terminal manager (current) use of insulin (7) History of CHF (congestive heart failure) Current Visit: Yes Status: Chronic (8) History of hyperlipidemia Current Visit: Yes Status: Chronic (9) Morbid obesity Current Visit: Yes Status: Chronic Qualifiers: Obesity type: with alveolar hypoventilation Qualified Code(s): 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 (10) PAD (peripheral artery disease) Current Visit: Yes Status: Chronic (11) DVT prophylaxis Current Visit: Yes Status: Acute Assessment and plan: On heparin drip (12) Left arm swelling Current Visit: Yes Status: Acute Assessment and plan: worsening edema of LUE will obtain venous doppler to rule out DVT - Subjective Interval history: Patient seen and examined at bedside. Resting in bed. Reports of improvement in breathing. No overnight issues were reported. Reports of pain in left elbow and noted to have worsening edema. - Constitutional Vitals: Temp Pulse Resp BP Pulse Ox 99.2 F 54 14 123/60 93 L 06/26/16 10:57 06/26/16 10:57 06/26/16 10:57 06/26/16 10:57 06/26/16 10:57 General appearance: Present: A&O X 3, morbidly obese, pleasant, no acute distress, answers questions appropriately - Head Head exam: Present: atraumatic, normocephalic - Eye Eye exam: Present: conjuntiva pink, sclera anicteric - Respiratory Respiratory exam: Present: decreased breath sounds. Absent: respiratory distress, wheezes - Cardiovascular Cardiovascular exam: Present: RRR, +S1, +S2 - GI/Abdominal GI/Abdominal exam: Present: distended (obese), normal bowel sounds, soft. Absent: tenderness - Extremities Exam Extremities exam: Present: pedal edema, warm, radial pulses palpable and symetrical. Absent: tenderness (s/p right AKA, bruising on bilateral upper extremity, LUE edema ) - Neurological Exam Neurological exam: Present: alert, oriented X3 - Psychiatric Psychiatric exam: Present: normal affect, normal mood Internal Medicine: Result - Labs CBC & Chem 7: 06/26/16 01:28 06/26/16 01:28 Labs: Short CBC 06/26/16 Range/Units 01:28 WBC 11.9 H (4.3-11.1) K/mcL Hgb 8.0 L (12.9-16.9) g/dL Hct 26.2 L (37.5-50.1) % Plt Count 195 (140-400) K/mcL Neutrophils # 9.5 H (1.6-8.9) K/mcL BMP 06/26/16 01:28 Sodium 131 L Potassium 5.3 H Chloride 95 L Carbon Dioxide 25 BUN 57 H Creatinine 2.66 H Glucose 230 H Calcium 8.7 - ABG Interpretation ABG results: ABG ABG pH 7.31 pH Units (7.32-7.45) L 06/21/16 08:27 ABG pCO2 59 mmHg (35-45) H 06/21/16 08:27 ABG pO2 83 mmHg (85-104) L 06/21/16 08:27 ABG O2 Saturation 95 % (95-98) 06/21/16 08:27 PT/INR, D-dimer PT 18.8 Seconds (9.4-12.1) H 06/26/16 01:28 Consult Discharge Plan - Plan Referrals: Joanna Chacko MD [Primary Care Provider] - (PT IS FROM [facility], NO PCP APPOINTMENT NEEDED)
--- NOTE | 2016-06-26 11:44 | Nephrology Progress Note ---
Date of Encounter: 06/26/16 Time of Encounter: 10:20 - Assessment and Plan (1) Acute kidney injury Current Visit: Yes Status: Acute Nonoliguric JONELLE on CKD Stage III. SCr bumped up to 2.66. Patient has been drinking fluids orally. 06/25 oral intake 1320, total input 3120, UOP 550 wtih positive balance of 2570. It is unclear if he truly had this drastic of a decrease in urine output. If so, it is concerning for ATN. Will recheck UA with microscopy today. It is essential that we get accurate STRICT I/Os and accurate daily weights. Olmos catheter was replaced yesterday with straw colored urine. Na 131, K 5.3, Mg 1.7, phos 5.1 Patient currently has UTI with cultures from 06/19 showing E. coli ESBL and proteus mirabilis ESBL. Olmos catheter replaced 06/25, patient on zosyn Q12h. Acute respiratory failure resolving, patient on 3L O2 via NC this morning with BiPAP at night. Acute encephalopathy resolving. Patient drinking thickened liquids without difficulty. Renal US negative for hydronephrosis. Plan: -Encourage oral intake and continue to hold off on IVF for now. The patient continues to have episodes of hypotension and agree with holding evening dose of carvedilol if hypotension continues. The hypotensive episode can contribute to the worsening renal function in addition to the underlying infection. Expect SCr to stabilize to his baseline (1.8-2) on oral fluids only. -Agree with dose of IV lasix -K increased to 5.3 today, will give one dose of kayexalate 30mg today. -Recheck BMP this afternoon -Repeat UA with microscopy -Continue to ensure the patient is on a potassium restricted diet. -Continue to follow renal protective strategy: dose rx by GFR, avoid NSAID, Bactrim and contrast as able -Continue strict I/Os. It is important that we have accurate urine output to assess his volume status. -Continue Daily Weights. Daily weights have been labile. Please ensure accurate daily weights. The fluctuation of measured weights makes it difficult to truly assess the patient's volume status. (2) Acute encephalopathy Current Visit: Yes Status: Acute Improving (3) Acute on chronic renal failure Current Visit: Yes Status: Acute (4) Hyperkalemia Current Visit: Yes Status: Acute Potassium is 5.3, will give dose of kayexalate 30mg today, recheck BMP in the afternoon. (5) Pneumonia Current Visit: Yes Status: Acute Qualifiers: Pneumonia type: aspiration pneumonia Aspiration pneumonia type: due to vomit Laterality: bilateral Lung location: unspecified part of lung Qualified Code(s): J69.0 - Pneumonitis due to inhalation of food and vomit Subjective Principal diagnosis: JONELLE on CKD, UTI Interval history: Patient seen and examined today. He denies any complaints, except that his left arm is still swollen. He states that he did not get enough water to drink yesterday. Olmos catheter remains in place. He is on 3 L O2 via NC during the day and BiPAP at night. Objective - Vital Signs Vital signs: Vital Signs Temp Pulse Resp BP Pulse Ox 06/26/16 10:57 99.2 F 54 14 123/60 93 L 06/26/16 10:32 18 93 L 06/26/16 08:00 60 96/57 93 L 06/26/16 04:59 23 96 06/26/16 04:30 52 06/26/16 00:00 99.5 F 52 21 99/52 91 L 06/25/16 23:25 48 06/25/16 22:04 28 98 06/25/16 22:00 99.6 F 60 98 06/25/16 20:15 99.6 F 60 22 120/68 92 L 06/25/16 16:11 16 92 L 06/25/16 16:05 98.5 F 63 18 125/77 94 L 06/25/16 16:00 63 06/25/16 12:00 98.1 F 72 19 157/86 93 L Intake and Output 06/25/16 06/26/16 06/26/16 23:59 07:59 15:59 Intake Total 340 / 340 1100 / 1100 580 / 580 Balance 340 / 340 1100 / 1100 580 / 580 Intake: IV Fluids 100 / 100 1100 / 1100 100 / 100 Heparin 25,000 UNIT/500 0 / 0 1000 / 1000 ML D5W 25,000 unit In 500 ml @ 20 mls/hr IVC .Q24H [facility] Rx#:[id number] Zosyn 3.375 GM In 100 / 100 100 / 100 100 / 100 Dextrose 5% (Minibag+) 100 ML 100 ML @ 25 mls/hr IVPB Q8H [facility] Rx#: [id number] Oral 240 / 240 480 / 480 Other: Meal Dinner Breakfast Percent of Meal Consumed 100% 100% Blood Glucose* 297 211 257 - General Appearance General appearance: Present: obese, chronically ill EENT: Present: ATNC, mucous membranes moist Neck: Present: no thyromegaly, supple Respiratory: Present: course breath sounds Cardiology: Present: no murmurs, no rub, no gallops, edema (trace LE edema with pitting edema of the left hand), irregular rhythm Gastrointestinal: Present: normoactive bowel sounds, no tenderness, no guarding , obese Integumentary: Present: no rash, warm and dry Neurologic: Present: no focal deficit Musculoskeletal: Present: no erythema, no cyanosis, no clubbing Additional Comments: Right AKA Psychiatric: Present: mood/affect appropriate, cooperative - Lab 06/26/16 01:28 06/26/16 01:28 Most recent lab results ABG pH 7.31 pH Units (7.32-7.45) L 06/21/16 08:27 ABG pCO2 59 mmHg (35-45) H 06/21/16 08:27 ABG pO2 83 mmHg (85-104) L 06/21/16 08:27 ABG HCO3 29.7 mEQ/L (21-27) H 06/21/16 08:27 ABG O2 Saturation 95 % (95-98) 06/21/16 08:27 Calcium 8.7 mg/dL (8.6-10.8) 06/26/16 01:28 Phosphorus 5.1 mg/dL (2.3-4.7) H 06/26/16 01:28 Magnesium 1.7 mg/dL (1.6-2.6) 06/26/16 01:28 - Allied health notes Allied health notes reviewed: nursing Consult Discharge Plan - Plan Referrals: Joanna Chacko MD [Primary Care Provider] - (PT IS FROM [facility], NO PCP APPOINTMENT NEEDED)
--- NOTE | 2016-06-26 13:07 | Infectious Disease Consult ---
Date of Encounter: 06/26/16 Time of Encounter: 13:05 Assessment and Plan (1) Sepsis Status: Acute Assessment and plan: The patient had two SIRS criteria plus JONELLE and acute encephalopathy. Likely secondary to UTI. Improved. WBC still mildly elevated, but trending down. No bandemia noted. The patient has been afebrile. His acute encephalopathy and JONELLE have resolved. Blood cultures drawn 06/20 are negative 07/29 sets. Qualifiers: Sepsis type: sepsis due to unspecified organism Qualified Code(s): A41.9 - Sepsis, unspecified organism (2) UTI (urinary tract infection) Status: Acute Assessment and plan: Causative organism E. coli ESBL and Proteus mirabilis. Likely secondary to chronic indwelling grajeda catheter. Grajeda catheter changed 06/25/16. Repeat urine culture is negative. Clinically, the patient appears to be improving. His WBC is still mildly elevated, but appears to be trending down. Continue Zosyn 3.375grams IV Q8H for now (day 7). According to the sensitivity report, the bacteria is susceptible to this medication, however, there have been increasing instances of treatment failure with the use of Zosyn in the setting of ESBL infections. Repeat CBC in the morning. If not continuing to trend down, may need to consider switching to a carbapenem to complete a 10-14 day course. Monitor renal function closely and dose-adjust antibiotics. Duration of treatment depends on the clinical picture. Qualifiers: Urinary tract infection type: site unspecified Hematuria presence: without hematuria Qualified Code(s): N39.0 - Urinary tract infection, site not specified (3) Acute encephalopathy Status: Acute Assessment and plan: Likely multifactorial: sepsis + UTI + hypercapnia. Improved. Unsure of the patient's baseline. (4) Acute kidney injury Status: Acute Assessment and plan: Nonoliguric. Serum creatinine >3 on arrival. Improved, but on the rise again. Nephrology consulted and following. Continue nephro-protective strategy as outlined by the Nephrology team. Dose-adjust antibiotics based on creatinine clearance. (5) Acute and chronic respiratory failure with hypercapnia Status: Acute Assessment and plan: Appears improved. Patient is off BIPAP and on nasal cannula O2. Management per the primary team. (6) Hyperkalemia Status: Acute Assessment and plan: Serum potassium 5.3 today. Management per the primary team. (7) Left arm swelling Status: Acute Assessment and plan: Etiology unclear. No evidence of erythema or warmth to indicate an infectious process. The patient does have an IV to the NBA arm, but no evidence of infiltration noted. X-rays negative. Consider DVT study if pain/ swelling persists. Management per the primary team. (8) Chronic indwelling Grajeda catheter Status: Chronic Assessment and plan: Secondary to BPH. Grajeda changed per the nursing staff 06/25/16. (9) Atrial fibrillation Status: Chronic Qualifiers: Atrial fibrillation type: chronic Qualified Code(s): I48.2 - Chronic atrial fibrillation (10) CAD (coronary artery disease) Status: Chronic Qualifiers: Coronary Disease-Associated Artery/Lesion type: nome artery [place] vs. transplanted heart: nome heart Associated angina: without angina Qualified Code(s): I25.10 - Atherosclerotic heart disease of nome coronary artery without angina pectoris (11) DM2 (diabetes mellitus, type 2) Status: Chronic Qualifiers: Diabetes mellitus complication status: with circulatory complication Diabetes mellitus complication detail: with other circulatory complications Diabetes mellitus truck terminal manager insulin use: with truck terminal manager use Qualified Code(s) : E11.59 - Type 2 diabetes mellitus with other circulatory complications; Z79.4 - half-way (current) use of insulin (12) Morbid obesity Status: Chronic Qualifiers: Obesity type: with alveolar hypoventilation Qualified Code(s): 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 (13) PAD (peripheral artery disease) Status: Chronic Infectious Disease HPI - Data of Consult Patient: new to practice Consult date: 06/26/16 Requesting Physician: Elizabeth Chapa MD Primary Care Provider: Joanna Chacko - Consult Narrative Reason for consult: Leukocytosis, ESBL UTI History of present illness: Mr. Sandoval is a 71 year old male with an extensive past medical history including CHF, COPD, diabetes, hypertension, chronic kidney disease, and BPH requiring a chronic indwelling Grajeda catheter. The patient was admitted to the hospital June 20 for altered mental status and UTI. We are consulted June 26 for further evaluation and treatment recommendations are going persistent leukocytosis. Reflex, the patient's 71-year-old male with past medical history as stated above. He originally presented to [facility] emergency department for altered mental status. He was noted to have leukocytosis and acute kidney injury as well as a urinary tract infection. He was admitted at [facility] for further evaluation and treatment was started on empiric antibiotics. The patient decompensated from a respiratory status and was subsequently transferred here to [facility] in [place] for further treatment. Since admission, the patient's urine culture has grown out Proteus mirabilis ESBL and Escherichia coli ESBL. Chest x-ray completed here was negative for any infection. Blood cultures obtained in [facility] are negative for out of 4 sets. Since admission, the nephrology team has been consulted and is following. The patient's acute kidney injury has improves, but is not back to baseline. Retroperitoneal ultrasound was negative. Repeat urine culture on the was negative. The patient has started to complain of left arm pain. X-rays were ordered by the primary team and were negative. The patient underwent Grajeda exchange on June 25. The patient is on day 7 of IV Zosyn. His white blood cell count today is 11.9. We've asked to evaluate and make further recommendations. During my exam today, the patient appears to be somewhat of a poor historian as he relates that he originally presented to the emergency department with complaints of vomiting for about a week. He cannot give me another information in regards the events leading up to his hospitalization. Currently, the patient denies any fevers or chills or rigors. He denies any congestion, earache, or sore throat. He denies any chest pain, shortness of breath, or cough. He denies any nausea, vomiting, diarrhea, or constipation. He reports that his last bowel movement was this morning. The patient tells me that he has a chronic indwelling Grajeda catheter and has a urologist in [place], [place]. He denies any abdominal pain states that his appetite is okay. He is unsure how his blood sugars been running prior to hospitalization. He cannot tell me if there are any changes in the status of his urine or when his catheter was last changed prior to admission. The patient does complain of left arm pain with movement of the extremity, mainly in the elbow. He denies any known trauma. He states the pain started on Thursday. He states it has not gotten any better or any worse. CC: Elizabeth Chapa MD Past Med Surg Social Fam HX - Past Medical History Attestation: Yes The following information was validated with the patient. 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) - Social History Smoking Status: Former smoker Smokeless Tobacco Status: No Alcohol use: none Drug use: none Occupational status: retired Current living situation: ECF Activity Level: Bed bound Recent Out of Country Travel Within the Last 8 Weeks: No Exposure or Possible Exposure to Illness During Travel: No - Family History Mother Adopted: No Family Member Ethnicity: Non- Living Status: Hx Family Cardiac Disorders: No Hx Family Respiratory Disorders: No Hx Family Cancer: Yes Hx Family GI Disorders: No Hx Family Endocrine Disorder: No Hx Family Neuromuscular Disorders: No Hx Family Neurologic Disorders: No Hx Family HEENT Disorders: No Hx Family Autoimmune Disorders: No Infectious Disease-CN:Meds Carvedilol [Coreg] 25 mg PO BID 12/14/14 [History] Isosorbide MONOnitrate (24 HR) [Imdur] 120 mg PO DAILY 12/14/14 [History] Lisinopril [Zestril] 40 mg PO DAILY 12/14/14 [History] Omeprazole [PriLOSEC] 20 mg PO DAILY 12/14/14 [History] Atorvastatin [Lipitor] 20 mg PO HS 01/21/15 [History] Citalopram [CeleXA] 20 mg PO DAILY 01/21/15 [History] Magnesium Oxide [Mag-Ox] 400 mg PO BID 01/21/15 [History] Warfarin [Coumadin] 9 mg PO DAILY 01/21/15 [History] Ipratropium/Albuterol Neb [Duoneb] 3 ml IH Q6HR 02/13/15 [History] L. Acidophilus/Pectin, [place] [Acidophilus Probiotic Capsule] 1 cap PO BID 02/13 [History] Ferrous Sulfate 325 mg PO DAILY 03/16/15 [History] Furosemide [Lasix] 80 mg PO BID 03/16/15 [History] Gabapentin [Neurontin] 300 mg PO TID 03/16/15 [History] Diltiazem CD (24hr) [Cardizem CD] 180 mg PO DAILY 04/16/15 [History] Insulin ASPART [NovoLOG] 6 unit SQ TIDWM 12/21/15 [History] Vitamin B Complex/Vit C/Vit E [Stresstab] 1 tab PO DAILY 04/16/15 [History] Docusate [Colace] 100 mg PO BID PRN #0 capsule 04/25/15 [Rx] Montelukast [Singulair] 10 mg PO DAILY tablet 04/25/15 [Rx] Spironolactone [Aldactone] 25 mg PO DAILY tablet 04/25/15 [Rx] Cholecalciferol (Vitamin D3) [Vitamin D] 50,000 unit PO QMONTH 03/21/16 [History ] Insulin DETEMIR [Levemir] 60 unit SQ HS 03/21/16 [History] Tizanidine HCl [Zanaflex] 2 mg PO QID 03/21/16 [History] Fluticasone/Salmeterol [Advair 500-50 Diskus] 1 puff IH BID 06/19/16 [History] Promethazine [Phenergan] 25 mg RC Q4H PRN 06/19/16 [History] Metformin HCl [Metformin HCl ER] 500 mg PO DAILY 06/21/16 [History] Allergies No Known Allergies Allergy (Verified 03/16/15 20:15) All systems: reviewed and no additional remarkable complaints except as stated Exam - Constitutional Vitals: Temp Pulse Resp BP Pulse Ox 99.2 F 54 14 123/60 93 L 06/26/16 10:57 06/26/16 10:57 06/26/16 10:57 06/26/16 10:57 06/26/16 10:57 General appearance: cooperative, morbidly obese, no acute distress - Head Head exam: Present: atraumatic, normal inspection, normocephalic - Eye Eye exam: Present: EOMI, normal appearance, PERRL Pupils: Present: normal accommodation - ENT ENT exam: Present: mucous membranes moist - Neck Neck exam: Present: full ROM, normal inspection - Respiratory Respiratory exam: Present: CTAB. Absent: rales, respiratory distress, rhonchi, wheezes - Cardiovascular Cardiovascular exam: Present: bradycardia, +S1, +S2. Absent: diastolic murmur, systolic murmur - GI/Abdominal GI/Abdominal exam: Present: distended (obese), normal bowel sounds, soft. Absent: tenderness - Extremities Exam Extremities exam: Present: pedal edema (1+ LLE). Absent: joint swelling, tenderness Additional comments: Right AKA stump without erythema or edema. - Neurological Exam Neurological exam: Present: alert, oriented X3, no focal deficits. Absent: facial droop, speech deficit - Psychiatric Psychiatric exam: Present: normal affect, normal mood - Skin Skin exam: Present: dry, intact, normal color, warm Infectious Disease CN: Results - Labs CBC & Chem 7: 06/26/16 01:28 06/26/16 01:28 Cultures: Cultures 06/25/16 10:21 Urine Culture - Final Urine,Catheterized No growth. 06/20/16 22:06 Blood Culture - Final Peripheral Venipuncture No growth. 06/20/16 22:06 Blood Culture - Final Peripheral Venipuncture No growth. 06/23/16 02:49 Urine Culture - Final Urine,Catheterized No pathogens isolated. 06/20/16 - Urine Culture + E. coli ESBL and Proteus mirabilis ESBL Serology: Serology 06/23/16 Range/Units 02:49 Urine Color Yellow (Yellow) Urine Clarity Cloudy A (Clear) Urine pH 5.0 (5.0-8.0) pH Units Ur Specific [place] 1.015 (1.010-1.025) Urine Protein 30 H (Neg-Trace) mg/dL Urine Glucose (UA) Normal (Normal) mg/dL Urine Ketones Negative (Negative) mg/dL Urine Blood Moderate H (Negative) Urine Nitrite Negative (Negative) Urine Bilirubin Negative (Negative) Urine Urobilinogen Normal (Normal) mg/dL Ur Leukocyte Esterase Large H (Negative) Urine Microscopic RBC 15-30 H (0-3) per hpf Urine Microscopic WBC TNTC H (0-3) per hpf Ur Squamous Epith Cells Few (None-Few) per lpf Amorphous Sediment Few (Few) Urine Bacteria Few (None-Few) per hpf Hyaline Casts None Seen (None-Few) per lpf Urine Mucus Few (Few) Urine Yeast Moderate H (None Seen) per hpf Consult Discharge Plan - Plan Referrals: Joanna Chacko MD [Primary Care Provider] - (PT IS FROM [facility], NO PCP APPOINTMENT NEEDED)
[2016-06-26] MEDS: *HR* Heparin 5,000 UNIT/ML VIAL IVP PRN (14:15)
[2016-06-26 14:30] LABS: Calcium 8.8 mg/dL (8.6-10.8); Potassium 4.7 mEq/L (3.5-4.5)
[2016-06-26] MEDS: *HR* Warfarin 3 MG TABLET PO SCH (17:17)
[2016-06-26 17:41] LABS: Bilirubin,Urine Negative (Negative); Blood,Urine Large (Negative); Clarity,Urine Turbid (Clear); Color,Urine Yellow (Yellow); Glucose,Urine (UA) Normal (Normal); Ketones,Urine Negative (Negative); Leukocyte Esterase,Urine Small (Negative); Nitrite,Urine Negative (Negative); PH,Urine 5.5 pH Units (5.0-8.0); Protein,Urine >=300 mg/dL (Neg-Trace); Specific Gravity,Urine 1.016 (1.010-1.025); Urobilinogen,Urine Normal (Normal)
[2016-06-26 17:43] LABS: Hyaline Casts,Urine None Seen per lpf (None-Few); Squamous Epithelial Cell,Urine Moderate per lpf (None-Few); WBC,Urine 50-100 per hpf (0-3)
[2016-06-26 18:14] LABS: Bacteria,Urine Few per hpf (None-Few)
[2016-06-26] MEDS ORDERED: Insulin DETEMIR 100 UNIT/ML X5UNITS SQ SCH (21:00)
[2016-06-27] MEDS: Heparin 25,000 UNIT/500 ML D5W 25,000 UNIT/500 ML MLS IVC SCH ×2 (01:37→10:39)
[2016-06-27] MEDS: *HR* Morphine 2 MG/ML SYRINGE IVP PRN (03:51)
[2016-06-27] MEDS: Piperacillin/Tazobactam 3.375 GM in D5% in Water (Mini-Bag+) 100 ML IVPB SCH (03:52)
[2016-06-27] MEDS: Ipratropium/Albuterol Neb 3 ML IH SCH ×4 (04:52→23:10)
[2016-06-27] MEDS: Magnesium Oxide 400 MG TABLET PO SCH ×2 (08:52→21:23)
[2016-06-27] MEDS: tiZANidine 4 MG TABLET PO SCH ×4 (08:53→21:49)
[2016-06-27] MEDS: Gabapentin 300 MG CAPSULE PO SCH ×3 (08:53→21:25)
[2016-06-27] MEDS: Insulin LISPRO 300 UNITS/3 ML VIAL SQ SCH ×7 (08:56→21:48)
--- NOTE | 2016-06-27 09:15 | Nephrology Progress Note ---
Date of Encounter: 06/27/16 Time of Encounter: 09:12 - Assessment and Plan (1) Acute kidney injury Current Visit: Yes Status: Acute Nonoliguric JONELLE on CKD Stage III. SCr 2.98. Patient has been drinking fluids orally. 06/26 oral intake 1820, total input 3563, UOP 2825 with positive balance of 738. Patient had decreased UOP of 550 06/25, and continued to have decreased output throughout the day yesterday. A bladder scan was performed and 700cc urine noted in the bladder. Grajeda catheter replaced and a blood clot was noted to be obstructing the grajeda. After replacement patient has had good UOP. SCr improved overnight and may have had an increase secondary to urine retention. UA did not reveal any hyaline casts. It is essential that we get accurate STRICT I/Os and accurate daily weights. Grajeda catheter was replaced yesterday with straw colored urine. Na 129, K 4.6, Mg 1.5, phos 6.3 Patient currently has UTI with cultures from 06/19 showing E. coli ESBL and proteus mirabilis ESBL. Grajeda catheter replaced 06/25, patient on zosyn Q12h. Acute respiratory failure resolving, patient on 3L O2 via NC this morning with BiPAP at night. Acute encephalopathy resolving. Patient drinking thickened liquids without difficulty. Renal US negative for hydronephrosis. Plan: -Encourage oral intake and continue to hold off on IVF for now. The patient continues to have episodes of hypotension with bradycardia. Morning imdur and cardizem held. Agree with holding these in the setting of hypotension. The hypotensive episode can contribute to the worsening renal function in addition to the underlying infection. Expect SCr to stabilize to his baseline (1.8-2) on oral fluids only. -Continue to ensure the patient is on a potassium restricted diet. -Continue to follow renal protective strategy: dose rx by GFR, avoid NSAID, Bactrim and contrast as able -Continue strict I/Os. It is important that we have accurate urine output to assess his volume status. -Continue Daily Weights. Daily weights have been labile. Please ensure accurate daily weights. The fluctuation of measured weights makes it difficult to truly assess the patient's volume status. (2) Acute encephalopathy Current Visit: Yes Status: Acute Improving (3) Acute on chronic renal failure Current Visit: Yes Status: Acute (4) Hyperkalemia Current Visit: Yes Status: Acute Potassium is 4.6 (5) Pneumonia Current Visit: Yes Status: Acute Qualifiers: Pneumonia type: aspiration pneumonia Aspiration pneumonia type: due to vomit Laterality: bilateral Lung location: unspecified part of lung Qualified Code(s): J69.0 - Pneumonitis due to inhalation of food and vomit Subjective Principal diagnosis: JONELLE on CKD, UTI Interval history: Patient seen and examined today. He denies any complaints and states that the swelling in his left arm is improving and is no longer painful. He had decreased UOP via grajeda catheter 06/25 and continued to have decreased UOP throughout the day yesterday. A bladder scan was performed and the patient was noted to have 700cc of urine in his bladder. The grajeda catheter was replaced and a clot was found to be blocking it. Patient has had adequate amounts of urine since. He has also had continued episodes of hypotension, but is asymptomatic. He denies dizziness, visual changes, sob, cp, abdominal pain. Grajeda catheter remains in place. He is on 3 L O2 via NC during the day and BiPAP at night. Objective - Vital Signs Vital signs: Vital Signs Temp Pulse Resp BP Pulse Ox 06/27/16 07:38 98.2 F 52 18 102/48 98 06/27/16 05:19 97.8 F 51 15 92/43 99 06/27/16 04:52 23 98 06/27/16 04:00 51 06/26/16 23:48 22 91 L 06/26/16 23:45 98.1 F 71 20 122/59 94 L 06/26/16 21:32 98.3 F 65 22 108/62 93 L 06/26/16 20:15 61 06/26/16 16:07 98.1 F 64 18 107/75 94 L 06/26/16 15:27 18 92 L 06/26/16 13:48 55 06/26/16 10:57 99.2 F 54 14 123/60 93 L 06/26/16 10:32 18 93 L Intake and Output 06/26/16 06/27/16 06/27/16 23:59 07:59 15:59 Intake Total 1400 / 1400 795 / 795 500 / 500 Output Total 2475 / 2475 1500 / 1500 200 / 200 Balance -1075 / -1075 -705 / -705 300 / 300 Intake: IV Fluids 300 / 300 795 / 795 100 / 100 Heparin 25,000 UNIT/500 200 / 200 695 / 695 ML D5W 25,000 unit In 500 ml @ 20 mls/hr IVC .Q24H [facility] Rx#:[id number] Zosyn 3.375 GM In 100 / 100 100 / 100 100 / 100 Dextrose 5% (Minibag+) 100 ML 100 ML @ 25 mls/hr IVPB Q8H [facility] Rx#: [id number] Oral 1100 / 1100 400 / 400 Output: Urine 1525 / 1525 950 / 950 Urethral (Grajeda) 1525 / 1525 700 / 700 Catheter 950 / 950 550 / 550 200 / 200 Other: Meal Dinner Breakfast Percent of Meal Consumed 100% 100% Weight 158.8 kg Blood Glucose* 210 242 Patient Weight 06/27/16 23:59 Weight 158.8 kg - General Appearance General appearance: Present: obese, chronically ill EENT: Present: ATNC, mucous membranes moist Neck: Present: no JVD, supple Respiratory: Present: clear Cardiology: Present: edema (trace on LE, left hand), irregular rhythm Gastrointestinal: Present: normoactive bowel sounds, no tenderness, no guarding , obese Integumentary: Present: no rash, warm and dry Neurologic: Present: no focal deficit Musculoskeletal: Present: no erythema, no cyanosis, no clubbing Additional Comments: right AKA Psychiatric: Present: mood/affect appropriate, cooperative - Lab 06/27/16 09:15 06/27/16 09:15 Most recent lab results ABG pH 7.31 pH Units (7.32-7.45) L 06/21/16 08:27 ABG pCO2 59 mmHg (35-45) H 06/21/16 08:27 ABG pO2 83 mmHg (85-104) L 06/21/16 08:27 ABG HCO3 29.7 mEQ/L (21-27) H 06/21/16 08:27 ABG O2 Saturation 95 % (95-98) 06/21/16 08:27 Calcium 8.8 mg/dL (8.6-10.8) 06/26/16 13:55 Phosphorus 5.1 mg/dL (2.3-4.7) H 06/26/16 01:28 Magnesium 1.7 mg/dL (1.6-2.6) 06/26/16 01:28 - Imaging Kidney/bladder ultrasound: report reviewed - Allied health notes Allied health notes reviewed: nursing Consult Discharge Plan - Plan Referrals: Joanna Chacko MD [Primary Care Provider] - (PT IS FROM [facility], NO PCP APPOINTMENT NEEDED)
[2016-06-27 09:36] LABS: Basophils % 0.3 %; Eosinophils # 0.3 K/mcL (0.0-0.6); Eosinophils % 2.4 %; Hemoglobin 7.7 g/dL (12.9-16.9); Immature Granulocytes % 1.2 % (0-4); Lymphocytes # 1.2 K/mcL (0.6-4.6); Lymphocytes % 9.3 %; Mean Corpuscular HGB Conc 30.8 g/dL (31.6-35.5); Mean Corpuscular Hemoglobin 25.8 pg (28.0-33.3); Mean Corpuscular Volume 83.9 fL (83.0-100.0); Mean Platelet Volume 10.7 fL (9.4-12.4); Monocytes # 0.4 K/mcL (0.0-1.3); Monocytes % 3.4 %; Neutrophils # 10.8 K/mcL (1.6-8.9); Nucleated Red Blood Cells 0.2 /100 WBC (0); Platelet Count 205 K/mcL (140-400); Red Blood Count 2.98 M/mcL (4.19-5.50); Red Cell Distribution Width 15.2 % (11.5-14.5); Segmented Neutrophils % 83.4 %
[2016-06-27 09:51] LABS: Calcium 8.3 mg/dL (8.6-10.8); Magnesium 1.5 mg/dL (1.6-2.6); Phosphorous 6.3 mg/dL (2.3-4.7); Potassium 4.6 mEq/L (3.5-4.5)
[2016-06-27] MEDS ORDERED: Magnesium Sulfate 1 GM in D5% in Water 100 ML IVPB ONE (10:31)
[2016-06-27] MEDS ORDERED: Meropenem 1,000 MG in 0.9 % Sodium Chloride Mini Bag 100 ML IVPB SCH (10:33)
[2016-06-27] MEDS: Diltiazem CD (24hr) 180 MG CAPSULE PO SCH (10:36)
[2016-06-27] MEDS: Isosorbide MONOnitrate (24 HR) 60 MG TAB.ER.24H PO SCH (10:37)
--- NOTE | 2016-06-27 10:37 | Internal Med Progress Note ---
Date of Encounter: 06/27/16 Time of Encounter: 10:35 - Assessment and plan (1) Sepsis Current Visit: Yes Status: Acute Assessment and plan: Secondary to ESBL UTI and Proteus mirabilis Afebrile since admission Given worsening Leukocytosis and hypotension, will start Meropenem today and d/ c Zosyn grajeda catheter noted to be clotted yesterday, changed again yesterday evening () f/u repeat Urine cultures ID consultation appreciated Qualifiers: Sepsis type: sepsis due to unspecified organism Qualified Code(s): A41.9 - Sepsis, unspecified organism (2) Acute on chronic renal failure Current Visit: Yes Status: Acute Assessment and plan: Nonoliguric JONELLE on CKD stage III. Kidney function worsened from previous day Patient may have cardiorenal syndrome given worsening renal function despite avoidance of nephrotoxic agents Presently with ESBL UTI, acute respiratory failure on BiPAP and acute encephalopathy Renal US: no hydronephrosis/abscess or abnormality reported Urine culture with Proteus Mirabilis ESBL, E. Coli ESBL Continue Zosyn at same dose Continue to monitor I/O Hypotension noted overnight, this can contribute to worsening renal function, will hold Carvedilol Patient had good urine output with trial of diuresis with minimal improvement in renal function Hyperkalemia improved will continue to monitor Nephrology consultation appreciated (3) COPD with acute exacerbation Current Visit: Yes Status: Acute Assessment and plan: Continue duonebs, current regimen monitor O2 saturation (goal O2 sat: 89-92%) out of bed to chair with assistance (4) Atrial fibrillation Current Visit: Yes Status: Chronic Assessment and plan: HR controlled, Continue patient's home meds Will hold Heparin drip today due to drop in H&H Will transfuse 2unit PRBC f/u INR levels for today Qualifiers: Atrial fibrillation type: chronic Qualified Code(s): I48.2 - Chronic atrial fibrillation (5) Chronic indwelling Grajeda catheter Current Visit: Yes Status: Chronic Assessment and plan: From [facility] changed grajeda cath 06/26/16 (6) DM2 (diabetes mellitus, type 2) Current Visit: Yes Status: Chronic Assessment and plan: Hyperglycemia persists Required 22units correctional insulin coverage in the last 24hours. will increase Levemir to 50units qHS and Humalog to 20units TIDAC continue to monitor fingerstick and blood glucose continue sliding scale correctional insulin coverage as needed Qualifiers: Diabetes mellitus complication status: with circulatory complication Diabetes mellitus complication detail: with other circulatory complications Diabetes mellitus intermission coordinator insulin use: with [facility] use Qualified Code(s) : E11.59 - Type 2 diabetes mellitus with other circulatory complications; Z79.4 - intermission coordinator (current) use of insulin (7) History of CHF (congestive heart failure) Current Visit: Yes Status: Chronic (8) History of hyperlipidemia Current Visit: Yes Status: Chronic (9) Morbid obesity Current Visit: Yes Status: Chronic Qualifiers: Obesity type: with alveolar hypoventilation Qualified Code(s): 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 Resting in bed. Reports of improvement in breathing. No overnight issues were reported. Reported to have minimal urine output yesterday evening requiring change in grajeda and was noted to have a blood clot in the grajeda. [place] urine noted in grajeda bag, no other bleeding reported. Patient had good urine output. Also noted to have drop in H&H with hypotension and worsening leukocytosis. Will hold heparin Drip, transfuse 2units PrBCs and d/c Zosyn and start Meropenem at this time. - Constitutional Vitals: Temp Pulse Resp BP Pulse Ox 98.2 F 62 18 89/57 97 06/27/16 07:38 06/27/16 09:00 06/27/16 07:38 06/27/16 09:00 06/27/16 09:00 General appearance: Present: A&O X 3, morbidly obese, pleasant, no acute distress, answers questions appropriately - Head Head exam: Present: atraumatic, normocephalic - Eye Eye exam: Present: conjuntiva pink, sclera anicteric - Respiratory Respiratory exam: Present: CTAB. Absent: respiratory distress, wheezes - Cardiovascular Cardiovascular exam: Present: RRR, +S1, +S2 - GI/Abdominal GI/Abdominal exam: Present: distended (obese), normal bowel sounds. Absent: tenderness - Extremities Exam Extremities exam: Present: pedal edema (s/p right AKA), warm, radial pulses palpable and symetrical. Absent: calf tenderness - Neurological Exam Neurological exam: Present: alert, oriented X3 - Psychiatric Psychiatric exam: Present: normal affect, normal mood Internal Medicine: Result - Labs CBC & Chem 7: 06/27/16 09:15 06/27/16 09:15 Labs: Short CBC 06/27/16 Range/Units 09:15 WBC 13.0 H (4.3-11.1) K/mcL Hgb 7.7 L (12.9-16.9) g/dL Hct 25.0 L (37.5-50.1) % Plt Count 205 (140-400) K/mcL Neutrophils # 10.8 H (1.6-8.9) K/mcL BMP 06/26/16 06/27/16 13:55 09:15 Sodium 129 L 129 L Potassium 4.7 H 4.6 H Chloride 92 L 92 L Carbon Dioxide 24 24 BUN 66 H 71 H Creatinine 3.25 H 2.98 H Glucose 218 H 246 H Calcium 8.8 8.3 L Urine 06/26/16 Range/Units 12:30 Urine Color Yellow (Yellow) Urine Clarity Turbid A (Clear) Urine pH 5.5 (5.0-8.0) pH Units Ur Specific [place] 1.016 (1.010-1.025) Urine Protein >=300 H (Neg-Trace) mg/dL Urine Glucose (UA) Normal (Normal) mg/dL - ABG Interpretation ABG results: ABG ABG pH 7.31 pH Units (7.32-7.45) L 06/21/16 08:27 ABG pCO2 59 mmHg (35-45) H 06/21/16 08:27 ABG pO2 83 mmHg (85-104) L 06/21/16 08:27 ABG O2 Saturation 95 % (95-98) 06/21/16 08:27 PT/INR, D-dimer PT 18.8 Seconds (9.4-12.1) H 06/26/16 01:28 Consult Discharge Plan - Plan Referrals: Joanna Chacko MD [Primary Care Provider] - (PT IS FROM [facility], NO PCP APPOINTMENT NEEDED)
[2016-06-27 10:43] LABS: INR 1.9; Prothrombin Time 20.7 Seconds (9.4-12.1)
[2016-06-27] MEDS ORDERED: Insulin LISPRO 300 UNITS/3 ML VIAL SQ SCH (11:30)
--- NOTE | 2016-06-27 12:11 | Infectious Disease Progress No ---
Date of Encounter: 06/27/16 Time of Encounter: 12:09 - Assessment and Plan (1) Sepsis Current Visit: Yes Status: Acute The patient had two SIRS criteria plus JONELLE and acute encephalopathy. Likely secondary to UTI. Improved. WBC slightly worse today. No bandemia noted. The patient has been afebrile. His acute encephalopathy and JONELLE have resolved. He has had some hypotension overnight. Blood cultures drawn 06/19 x 2 sets and 06/20 x 2 sets are negative 07/29 sets. Qualifiers: Sepsis type: sepsis due to unspecified organism Qualified Code(s): A41.9 - Sepsis, unspecified organism (2) UTI (urinary tract infection) Current Visit: No Status: Acute Causative organism E. coli ESBL and Proteus mirabilis. Likely secondary to chronic indwelling grajeda catheter. Grajeda catheter changed 06/25/16. Replaced again 06/26/16 due to catheter obstruction. Repeat urine culture is negative. Clinically, the patient appears to be improving. His WBC is back up today. Discontinue Zosyn. According to the sensitivity report, the bacteria is susceptible to this medication, however, there have been increasing instances of treatment failure with the use of Zosyn in the setting of ESBL infections. Start Meropenem 1 gram IV Q8H. Monitor renal function closely and dose-adjust antibiotics. Duration of treatment depends on the clinical picture, but likely 10-14 days. Qualifiers: Urinary tract infection type: site unspecified Hematuria presence: without hematuria Qualified Code(s): N39.0 - Urinary tract infection, site not specified (3) Acute encephalopathy Current Visit: Yes Status: Acute Likely multifactorial: sepsis + UTI + hypercapnia. Improved. Unsure of the patient's baseline. (4) Acute kidney injury Current Visit: Yes Status: Acute Nonoliguric. Serum creatinine >3 on arrival. Improved, but worse yesterday. Likely secondary to bladder outlet obstruction secondary to clogged grajeda catheter. Improved today after catheter replaced yesterday. Nephrology consulted and following. Continue nephro-protective strategy as outlined by the Nephrology team. Dose-adjust antibiotics based on creatinine clearance. (5) Acute and chronic respiratory failure with hypercapnia Current Visit: No Status: Acute Appears improved. Patient is off BIPAP and on nasal cannula O2. Management per the primary team. (6) Hyperkalemia Current Visit: Yes Status: Acute Improved. Serum potassium 4.6 today. Management per the primary team. (7) Left arm swelling Current Visit: Yes Status: Acute Etiology unclear. No evidence of erythema or warmth to indicate an infectious process. The patient did have an IV to the [place] arm, but no evidence of infiltration noted. X-rays negative. Consider DVT study and/or CT if pain/ swelling persists. Management per the primary team. (8) Chronic indwelling Grajeda catheter Current Visit: Yes Status: Chronic Secondary to BPH. Grajeda changed per the nursing staff 06/26/16. (9) Atrial fibrillation Current Visit: Yes Status: Chronic Qualifiers: Atrial fibrillation type: chronic Qualified Code(s): I48.2 - Chronic atrial fibrillation (10) CAD (coronary artery disease) Current Visit: Yes Status: Chronic Qualifiers: Coronary Disease-Associated Artery/Lesion type: [place] artery [place] vs. transplanted heart: [place] heart Associated angina: without angina Qualified Code(s): I25.10 - Atherosclerotic heart disease of [place] coronary artery without angina pectoris (11) DM2 (diabetes mellitus, type 2) Current Visit: Yes Status: Chronic Qualifiers: Diabetes mellitus complication status: with circulatory complication Diabetes mellitus complication detail: with other circulatory complications Diabetes mellitus mcfp insulin use: with moth exterminator use Qualified Code(s) : E11.59 - Type 2 diabetes mellitus with other circulatory complications; Z79.4 - snf (current) use of insulin (12) Morbid obesity Current Visit: Yes Status: Chronic Qualifiers: Obesity type: with alveolar hypoventilation Qualified Code(s): 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 (13) PAD (peripheral artery disease) Current Visit: Yes Status: Chronic - Subjective Interval history: Patient seen and examined. Overnight events noted - patient required replacement of grajeda due to blood clot in the grajeda obstructing urine outflow. Patient resting with eyes closed, awakens easily. Denies pain when asked, but states left arm is painful when asked to move it. Yesterday he told me this pain was new, but today he tells me he has chronic pain and swelling in the LUE that started "a long time ago." Denies fevers or chills or rigors. Denies chest pain, shortness of breath, or cough. Denies nausea, vomiting, or diarrhea. States he ate his breakfast this morning. Denies oral thrush. Infect Dis PN-Objective Data - Labs CBC & Chem 7: 06/27/16 09:15 06/27/16 09:15 Labs: Laboratory Results - last 24 hr 06/26/16 06/26/16 06/26/16 10:53 12:20 12:30 WBC RBC Hgb Hct MCV MCH MCHC RDW Plt Count MPV Immature Gran % Seg Neutrophils % Lymphocytes % Monocytes % Eosinophils % Basophils % Neutrophils # Lymphocytes # Monocytes # Eosinophils # Basophils # Nucleated RBCs/100 WBC PT INR APTT 52.7 H Sodium Potassium Chloride Carbon Dioxide BUN Creatinine Est GFR ( Amer) Est GFR (Non-Af Amer) BUN/Creatinine Ratio Glucose POC Glucose 257 H Calculated Osmolality Calcium Phosphorus Magnesium Random Cortisol Urine Color Yellow Urine Clarity Turbid A Urine pH 5.5 Ur Specific [place] 1.016 Urine Protein >=300 H Urine Glucose (UA) Normal Urine Ketones Negative Urine Blood Large H Urine Nitrite Negative Urine Bilirubin Negative Urine Urobilinogen Normal Ur Leukocyte Esterase Small H Urine Microscopic RBC 5-15 H Urine Microscopic WBC 50-100 H Ur Squamous Epith Cells Moderate H Urine Bacteria Few Hyaline Casts None Seen Urine Yeast Test Not Performed Urine Sodium 06/26/16 06/26/16 06/26/16 13:55 16:10 21:16 WBC RBC Hgb Hct MCV MCH MCHC RDW Plt Count MPV Immature Gran % Seg Neutrophils % Lymphocytes % Monocytes % Eosinophils % Basophils % Neutrophils # Lymphocytes # Monocytes # Eosinophils # Basophils # Nucleated RBCs/100 WBC PT INR APTT Sodium 129 L Potassium 4.7 H Chloride 92 L Carbon Dioxide 24 BUN 66 H Creatinine 3.25 H Est GFR ( Amer) 23 L Est GFR (Non-Af Amer) 19 L BUN/Creatinine Ratio 20 Glucose 218 H POC Glucose 226 H 210 H Calculated Osmolality 294 Calcium 8.8 Phosphorus Magnesium Random Cortisol Urine Color Urine Clarity Urine pH Ur Specific [place] Urine Protein Urine Glucose (UA) Urine Ketones Urine Blood Urine Nitrite Urine Bilirubin Urine Urobilinogen Ur Leukocyte Esterase Urine Microscopic RBC Urine Microscopic WBC Ur Squamous Epith Cells Urine Bacteria Hyaline Casts Urine Yeast Urine Sodium 06/26/16 06/27/16 06/27/16 21:40 03:45 07:41 WBC RBC Hgb Hct MCV MCH MCHC RDW Plt Count MPV Immature Gran % Seg Neutrophils % Lymphocytes % Monocytes % Eosinophils % Basophils % Neutrophils # Lymphocytes # Monocytes # Eosinophils # Basophils # Nucleated RBCs/100 WBC PT INR APTT 68.4 H 59.1 H Sodium Potassium Chloride Carbon Dioxide BUN Creatinine Est GFR ( Amer) Est GFR (Non-Af Amer) BUN/Creatinine Ratio Glucose POC Glucose 242 H Calculated Osmolality Calcium Phosphorus Magnesium Random Cortisol Urine Color Urine Clarity Urine pH Ur Specific [place] Urine Protein Urine Glucose (UA) Urine Ketones Urine Blood Urine Nitrite Urine Bilirubin Urine Urobilinogen Ur Leukocyte Esterase Urine Microscopic RBC Urine Microscopic WBC Ur Squamous Epith Cells Urine Bacteria Hyaline Casts Urine Yeast Urine Sodium 06/27/16 06/27/16 06/27/16 09:15 09:15 09:15 WBC 13.0 H RBC 2.98 L Hgb 7.7 L Hct 25.0 L MCV 83.9 MCH 25.8 L MCHC 30.8 L RDW 15.2 H Plt Count 205 MPV 10.7 Immature Gran % 1.2 Seg Neutrophils % 83.4 Lymphocytes % 9.3 Monocytes % 3.4 Eosinophils % 2.4 Basophils % 0.3 Neutrophils # 10.8 H Lymphocytes # 1.2 Monocytes # 0.4 Eosinophils # 0.3 Basophils # 0.0 Nucleated RBCs/100 WBC 0.2 H PT INR APTT Sodium 129 L Potassium 4.6 H Chloride 92 L Carbon Dioxide 24 BUN 71 H Creatinine 2.98 H Est GFR ( Amer) 25 L Est GFR (Non-Af Amer) 21 L BUN/Creatinine Ratio 24 Glucose 246 H POC Glucose Calculated Osmolality 297 Calcium 8.3 L Phosphorus 6.3 H Magnesium 1.5 L Random Cortisol 15.2 Urine Color Urine Clarity Urine pH Ur Specific [place] Urine Protein Urine Glucose (UA) Urine Ketones Urine Blood Urine Nitrite Urine Bilirubin Urine Urobilinogen Ur Leukocyte Esterase Urine Microscopic RBC Urine Microscopic WBC Ur Squamous Epith Cells Urine Bacteria Hyaline Casts Urine Yeast Urine Sodium 06/27/16 06/27/16 06/27/16 09:15 11:15 11:44 WBC RBC Hgb Hct MCV MCH MCHC RDW Plt Count MPV Immature Gran % Seg Neutrophils % Lymphocytes % Monocytes % Eosinophils % Basophils % Neutrophils # Lymphocytes # Monocytes # Eosinophils # Basophils # Nucleated RBCs/100 WBC PT 20.7 H INR 1.9 APTT Sodium Potassium Chloride Carbon Dioxide BUN Creatinine Est GFR ( Amer) Est GFR (Non-Af Amer) BUN/Creatinine Ratio Glucose POC Glucose 240 H Calculated Osmolality Calcium Phosphorus Magnesium Random Cortisol Urine Color Urine Clarity Urine pH Ur Specific [place] Urine Protein Urine Glucose (UA) Urine Ketones Urine Blood Urine Nitrite Urine Bilirubin Urine Urobilinogen Ur Leukocyte Esterase Urine Microscopic RBC Urine Microscopic WBC Ur Squamous Epith Cells Urine Bacteria Hyaline Casts Urine Yeast Urine Sodium 49.0 Cultures: Cultures 06/25/16 10:21 Urine Culture - Final Urine,Catheterized No growth. 06/20/16 22:06 Blood Culture - Final Peripheral Venipuncture No growth. 06/20/16 22:06 Blood Culture - Final Peripheral Venipuncture No growth. 06/23/16 02:49 Urine Culture - Final Urine,Catheterized No pathogens isolated. Serology 06/27/16 06/26/16 06/23/16 Range/Units 11:15 12:30 02:49 Urine Color Yellow Yellow (Yellow) Urine Clarity Turbid A Cloudy A (Clear) Urine pH 5.5 5.0 (5.0-8.0) pH Units Ur Specific [place] 1.016 1.015 (1.010-1.025) Urine Protein >=300 H 30 H (Neg-Trace) mg/dL Urine Glucose (UA) Normal Normal (Normal) mg/dL Urine Ketones Negative Negative (Negative) mg/dL Urine Blood Large H Moderate H (Negative) Urine Nitrite Negative Negative (Negative) Urine Bilirubin Negative Negative (Negative) Urine Urobilinogen Normal Normal (Normal) mg/dL Ur Leukocyte Esterase Small H Large H (Negative) Urine Microscopic RBC 5-15 H 15-30 H (0-3) per hpf Urine Microscopic WBC 50-100 H TNTC H (0-3) per hpf Ur Squamous Epith Cells Moderate H Few (None-Few) per lpf Amorphous Sediment Few (Few) Urine Bacteria Few Few (None-Few) per hpf Hyaline Casts None Seen None Seen (None-Few) per lpf Urine Mucus Few (Few) Urine Yeast Test Not Performed Moderate H (None Seen) per hpf Urine Sodium 49.0 mEq/L Exam - Constitutional Vitals: Temp Pulse Resp BP Pulse Ox 98.4 F 55 20 100/63 92 L 06/27/16 11:47 06/27/16 11:47 06/27/16 11:47 06/27/16 11:47 06/27/16 11:47 General appearance: cooperative, morbidly obese, no acute distress - Head Head exam: Present: atraumatic, normal inspection, normocephalic - Eye Eye exam: Present: EOMI, normal appearance, PERRL Pupils: Present: normal accommodation - ENT ENT exam: Present: mucous membranes moist - Neck Neck exam: Present: normal inspection - Respiratory Respiratory exam: Present: CTAB, rales, respiratory distress, wheezes (RUL). Absent: rhonchi - Cardiovascular Cardiovascular exam: Present: bradycardia, +S1, +S2 - GI/Abdominal GI/Abdominal exam: Present: distended (obese), normal bowel sounds, soft. Absent: tenderness Additional comments: Grajeda catheter noted to be draining clear yellow urine. - Extremities Exam Additional comments: LUE edematous and warm to touch. No erythema noted. Painful ROM of the left elbow noted during exam. Right LE stump without erythema or warmth. - Neurological Exam Neurological exam: Present: alert, oriented X3, no focal deficits - Psychiatric Psychiatric exam: Present: normal affect, normal mood - Skin Skin exam: Present: dry, intact, normal color, warm Consult Discharge Plan - Plan Referrals: Joanna Chacko MD [Primary Care Provider] - (PT IS FROM [facility], NO PCP APPOINTMENT NEEDED)
--- NOTE | 2016-06-27 15:22 | Venous Imaging Report ---
UE Venous Duplex Patient Name:Dawn Sandoval Order Number:[id number] Procedure Date:06/26/2016 Date:1945ge:71 yrs Gender:Male Location:[facility] Room #: 2N07 Machine Assembler For Puller Over:Jessica Kilgore RDCS Referring MD:Elizabeth Chapa MD gluing machine operator electronic:Joanna Chacko MD Reading MD:Austen Gomez MD Primary Indications:Swelling of limb Secondary Indications: Impressions: Normal left upper extremity deep venous exam. Acute superficial venous thrombosis is present in the left cephalic vein. Recommendations: Test completed on 06/26/2016 at 8:25:00 pm. Critical findings reported to Pt Vicki [facility] in person at 8:30:00 pm on 06/26/2016 by Jessica Kilgore RDCS. Findings Venous Duplex Results: Left: Venous imaging of the upper extremity reveals full patency and normal vessel compressibility of the left jugular, left subclavian, left axillary, left brachial, left cephalic forearm, left basilic, left radial and left ulnar. Doppler signals in the evaluated veins were normal. There is an acute partially occlusive thrombus seen in the left distal cephalic upper arm. It demonstrates a partially compressible vein. Flow was phasic and it did augment. Prior Study: No prior study available for comparison. Upper Extremity Venous Duplex Side Vein Compress Spontaneous Flow Augment Left Jugular Normal Yes Phasic Yes Left Subclavian Normal Yes Phasic Yes Left Axillary Normal Yes Phasic Yes Left Brachial Normal Yes Phasic Yes Left Cephalic Upper Arm Partial no Phasic yes Left Cephalic Forearm Normal Yes Phasic Yes Left Basilic Normal Yes Phasic Yes Left Radial Normal Yes Phasic Yes Left Ulnar Normal Yes Phasic Yes Updated by Austen Gomez MD on 06/27/2016 3:17:06 PM electronically signed on 06/27/2016 3:17:25 PM with status of Final
[2016-06-27] MEDS ORDERED: 0.9 % Sodium Chloride 250 ML ONE (16:23)
[2016-06-27] MEDS: *HR* Warfarin 3 MG TABLET PO SCH (17:03)
[2016-06-27] MEDS: Meropenem 1,000 MG in 0.9 % Sodium Chloride Mini Bag 100 ML IVPB SCH (21:21)
[2016-06-27] MEDS: *HR* OxyCODONE Immed Rel 5 MG TABLET PO PRN (21:22)
[2016-06-27] MEDS: Insulin DETEMIR 100 UNIT/ML X5UNITS SQ SCH (21:48)
[2016-06-28] MEDS: *HR* Morphine 2 MG/ML SYRINGE IVP PRN (03:07)
[2016-06-28] MEDS: Ipratropium/Albuterol Neb 3 ML IH SCH ×4 (05:45→23:20)
[2016-06-28] MEDS: Meropenem 1,000 MG in 0.9 % Sodium Chloride Mini Bag 100 ML IVPB SCH ×2 (07:09→16:38)
[2016-06-28] MEDS: tiZANidine 4 MG TABLET PO SCH ×4 (08:35→21:56)
[2016-06-28] MEDS: Gabapentin 300 MG CAPSULE PO SCH ×3 (08:35→21:56)
[2016-06-28] MEDS: Isosorbide MONOnitrate (24 HR) 60 MG TAB.ER.24H PO SCH (08:35)
[2016-06-28] MEDS: Diltiazem CD (24hr) 180 MG CAPSULE PO SCH (08:35)
[2016-06-28] MEDS: Insulin LISPRO 300 UNITS/3 ML VIAL SQ SCH ×7 (08:36→21:57)
[2016-06-28] MEDS: Magnesium Oxide 400 MG TABLET PO SCH ×2 (08:36→21:56)
[2016-06-28 09:58] LABS: Basophils # 0.1 K/mcL (0.0-0.2); Basophils % 0.3 %; Eosinophils # 0.4 K/mcL (0.0-0.6); Eosinophils % 2.4 %; Hematocrit 30.3 % (37.5-50.1); Immature Granulocytes % 1.4 % (0-4); Lymphocytes # 0.7 K/mcL (0.6-4.6); Mean Corpuscular HGB Conc 30.7 g/dL (31.6-35.5); Mean Corpuscular Hemoglobin 26.1 pg (28.0-33.3); Mean Corpuscular Volume 85.1 fL (83.0-100.0); Mean Platelet Volume 9.8 fL (9.4-12.4); Monocytes # 0.4 K/mcL (0.0-1.3); Monocytes % 2.7 %; Neutrophils # 12.9 K/mcL (1.6-8.9); Nucleated Red Blood Cells 0.3 /100 WBC (0); Platelet Count 233 K/mcL (140-400); Red Blood Count 3.56 M/mcL (4.19-5.50); Red Cell Distribution Width 15.1 % (11.5-14.5); Segmented Neutrophils % 88.2 %
[2016-06-28 09:59] LABS: Hemoglobin 9.3 g/dL (12.9-16.9)
[2016-06-28 10:04] LABS: Prothrombin Time 21.9 Seconds (9.4-12.1)
[2016-06-28 10:06] LABS: Activated Partial Thrombo Time 34.1 Seconds (26.0-36.0)
[2016-06-28 10:11] LABS: Calcium 8.9 mg/dL (8.6-10.8); Magnesium 1.5 mg/dL (1.6-2.6); Phosphorous 4.3 mg/dL (2.3-4.7); Potassium 4.6 mEq/L (3.5-4.5)
[2016-06-28] MEDS ORDERED: Magnesium Sulfate 1 GM in D5% in Water 100 ML IVPB ONE (11:17)
--- NOTE | 2016-06-28 11:21 | Internal Med Progress Note ---
Date of Encounter: 06/28/16 Time of Encounter: 11:00 - Assessment and plan (1) Sepsis Current Visit: Yes Status: Acute Assessment and plan: Secondary to ESBL UTI and Proteus mirabilis Afebrile since admission Leukocytosis persists. Clinically patient is improving with good urine output and vitals within acceptable range Will continue Merem 1gm IV q8h at this time Will obtain CXR to r/o any cardiopulmonary pathology contributing to patient's leukoctosis Given worsening Leukocytosis and hypotension, will start Meropenem today and d/ c Zosyn grajeda catheter changed (06/26/16) f/u repeat Urine cultures ID consultation appreciated Qualifiers: Sepsis type: sepsis due to unspecified organism Qualified Code(s): A41.9 - Sepsis, unspecified organism (2) Anemia Current Visit: Yes Status: Acute Assessment and plan: Of unclear etiology s/p 2 unit PRBC transfusion Will obtain stool occult to rule out GI bleed H&H post transfusion within acceptable range no active bleeding noted at this time will continue to closely monitor Qualifiers: Anemia type: unspecified type Qualified Code(s): D64.9 - Anemia, unspecified (3) Acute on chronic renal failure Current Visit: Yes Status: Acute Assessment and plan: Nonoliguric JONELLE on CKD stage III. renal function improved from previous day with good urine output will continue to avoid nephrotoxic agents continue to monitor renal profile Hyperkalemia improving Presently with ESBL UTI, acute respiratory failure Renal US: no hydronephrosis/abscess or abnormality reported Urine culture with Proteus Mirabilis ESBL, E. Coli ESBL Continue to monitor I/O Nephrology consultation appreciated (4) COPD with acute exacerbation Current Visit: Yes Status: Acute Assessment and plan: Continue duonebs, current regimen monitor O2 saturation (goal O2 sat: 89-92%) out of bed to chair with assistance (5) Atrial fibrillation Current Visit: Yes Status: Chronic Assessment and plan: HR controlled, Continue patient's home meds INR within therapeutic range d/c heparin drip continue Coumadin goal INR:2-3 Qualifiers: Atrial fibrillation type: chronic Qualified Code(s): I48.2 - Chronic atrial fibrillation (6) Chronic indwelling Grajeda catheter Current Visit: Yes Status: Chronic Assessment and plan: From ECF changed grajeda cath 06/26/16 (7) DM2 (diabetes mellitus, type 2) Current Visit: Yes Status: Chronic Assessment and plan: Hyperglycemia persists Required 22units correctional insulin coverage in the last 24hours. continue Levemir to 50units qHS and Humalog to 20units TIDAC continue to monitor fingerstick and blood glucose continue sliding scale correctional insulin coverage as needed Qualifiers: Diabetes mellitus complication status: with circulatory complication Diabetes mellitus complication detail: with other circulatory complications Diabetes mellitus local company intermodal truck driver insulin use: with nursing home use Qualified Code(s) : E11.59 - Type 2 diabetes mellitus with other circulatory complications; Z79.4 - intermission coordinator (current) use of insulin (8) History of CHF (congestive heart failure) Current Visit: Yes Status: Chronic (9) History of hyperlipidemia Current Visit: Yes Status: Chronic (10) Morbid obesity Current Visit: Yes Status: Chronic Qualifiers: Obesity type: with alveolar hypoventilation Qualified Code(s): 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 (11) PAD (peripheral artery disease) Current Visit: Yes Status: Chronic (12) DVT prophylaxis Current Visit: Yes Status: Acute Assessment and plan: On coumadin (13) DVT (deep venous thrombosis) Current Visit: Yes Status: Acute Assessment and plan: LUE venous doppler noted for acute superficial thrombosis patient already on anticoagulation therapy will continue to monitor Qualifiers: DVT location: upper extremity Affected thrombotic vein of extremity: other upper extremity vein Laterality: left Chronicity: acute Qualified Code(s) : I82.622 - Acute embolism and thrombosis of deep veins of left upper extremity - Subjective Interval history: Patient seen and examined at bedside. Resting in bed. Reports of improvement in breathing. No overnight issues were reported. Improvement in renal function and H&H noted. - Constitutional Vitals: Temp Pulse Resp BP Pulse Ox 97.9 F 67 20 147/79 90 L 06/28/16 08:35 06/28/16 08:35 06/28/16 08:35 06/28/16 08:35 06/28/16 08:35 General appearance: Present: A&O X 3, morbidly obese, pleasant, no acute distress, answers questions appropriately - Head Head exam: Present: atraumatic, normocephalic - Eye Eye exam: Present: conjuntiva pink, sclera anicteric - Respiratory Respiratory exam: Present: decreased breath sounds (due to obese body habitus). Absent: respiratory distress, wheezes - Cardiovascular Cardiovascular exam: Present: RRR, +S1, +S2 - GI/Abdominal GI/Abdominal exam: Present: distended (obese), normal bowel sounds, soft. Absent: tenderness - Extremities Exam Extremities exam: Present: pedal edema (s/p right AKA), warm. Absent: calf tenderness - Neurological Exam Neurological exam: Present: alert, oriented X3 - Psychiatric Psychiatric exam: Present: normal affect, normal mood Internal Medicine: Result - Labs CBC & Chem 7: 06/28/16 09:48 06/28/16 09:48 Labs: Short CBC 06/28/16 Range/Units 09:48 WBC 14.6 H (4.3-11.1) K/mcL Hgb 9.3 L D (12.9-16.9) g/dL Hct 30.3 L (37.5-50.1) % Plt Count 233 (140-400) K/mcL Neutrophils # 12.9 H (1.6-8.9) K/mcL BMP 06/28/16 09:48 Sodium 131 L Potassium 4.6 H Chloride 97 L Carbon Dioxide 24 BUN 64 H Creatinine 1.96 H Glucose 217 H Calcium 8.9 - ABG Interpretation ABG results: ABG ABG pH 7.31 pH Units (7.32-7.45) L 06/21/16 08:27 ABG pCO2 59 mmHg (35-45) H 06/21/16 08:27 ABG pO2 83 mmHg (85-104) L 06/21/16 08:27 ABG O2 Saturation 95 % (95-98) 06/21/16 08:27 PT/INR, D-dimer PT 21.9 Seconds (9.4-12.1) H 06/28/16 09:48 Consult Discharge Plan - Plan Referrals: Joanna Chacok MD [Primary Care Provider] - (PT IS FROM ECF, NO PCP APPOINTMENT NEEDED)
--- NOTE | 2016-06-28 11:34 | Nephrology Progress Note ---
Date of Encounter: 06/28/16 Time of Encounter: 11:32 - Assessment and Plan (1) Leukocytosis Current Visit: Yes Status: Acute Unclear etiology. Patient on appropriate antibiotics based on culture data. Patient has yeast in urine, but could be colonization. If no other infectious source found. Consider treating with antifungal agent. Monitor for diarrhea/Cdiff. Evaluate for other causes of infection. Agree with CXR. If febrile consider repeat blood and urine culture. Qualifiers: Qualified Code(s): D72.829 - Elevated white blood cell count, unspecified (2) Acute on chronic renal failure Current Visit: Yes Status: Acute Renal function continues to approach baseline renal function. Will restart diuresis and evaluate for renal response. (3) Anemia Current Visit: Yes Status: Acute Follow hemoglobin. Transfuse as needed. Hemoglobin trended down to the point of requiring tranfusion. No clear source of bleeding. Recommend checking iron stores and stool for occult blood. Qualifiers: Anemia type: unspecified type Qualified Code(s): D64.9 - Anemia, unspecified (4) Morbid obesity Current Visit: Yes Status: Chronic outpatient management. 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 Qualifiers: Qualified Code(s): E87.70 - Fluid overload, unspecified Subjective Principal diagnosis: JONELLE on CKD, UTI Interval history: Patient seen and evaluated. No new complaint. He denies shortness of breath of cough. No new pain. ROS otherwise is stable. Objective - Vital Signs Vital signs: Vital Signs Temp Pulse Resp BP Pulse Ox 06/28/16 08:35 97.9 F 67 20 147/79 90 L 06/28/16 05:57 98.8 F 84 20 142/81 97 06/28/16 05:45 18 92 L 06/28/16 05:41 98.7 F 76 20 140/92 92 L 06/28/16 05:10 84 06/28/16 02:43 98.4 F 68 20 119/72 95 06/28/16 02:28 98.4 F 74 20 112/76 95 06/28/16 01:26 99.7 F H 62 18 107/60 97 06/27/16 23:45 68 03/03/17 23:10 18 95 06/27/16 20:43 99.1 F 79 18 130/79 92 L 06/27/16 20:35 98.7 F 72 18 130/79 93 L 06/27/16 20:00 74 06/27/16 19:45 97 06/27/16 16:47 98.3 F 62 18 120/69 94 L 06/27/16 16:32 98.1 F 58 16 124/79 90 L 06/27/16 16:04 98.2 F 62 18 114/71 06/27/16 15:58 18 95 06/27/16 11:47 98.4 F 55 20 100/63 92 L 06/27/16 11:40 53 Intake and Output 06/27/16 06/28/16 06/28/16 23:59 07:59 15:59 Intake Total 1325 / 1325 300 / 300 574 / 574 Output Total 1380 / 1380 2500 / 2500 850 / 850 Balance -55 / -55 -2200 / -2200 -276 / -276 Intake: IV Fluids 100 / 100 100 / 100 Merrem 1,000 MG In 0.9 % 100 / 100 100 / 100 Sodium Chloride (Mini-Bag +) 100 ML @ 200 mls/hr IVPB Q12H [facility] Rx#: [id number] Oral 920 / 920 474 / 474 Blood Product 305 / 305 300 / 300 Rbcs Leuko Poor As-1 300 / 300 Unit [id number] Rbcs Leuko Poor As-1 305 / 305 Unit [id number] Output: Catheter 1380 / 1380 2500 / 2500 850 / 850 Other: Meal Dinner Breakfast Percent of Meal Consumed 100% 100% Weight 157.8 kg Blood Glucose* 167 157 Patient Weight 06/28/16 23:59 Weight 157.8 kg - General Appearance General appearance: Present: well-developed, well-nourished, obese EENT: Present: ATNC Neck: Present: supple Cardiology: Present: edema, regular rate, regular rhythm Gastrointestinal: Present: normoactive bowel sounds, no tenderness Integumentary: Present: warm and dry Neurologic: Present: alert and oriented x3 Musculoskeletal: Present: no cyanosis Psychiatric: Present: mood/affect appropriate - Lab 06/28/16 09:48 06/28/16 09:48 Most recent lab results ABG pH 7.31 pH Units (7.32-7.45) L 06/21/16 08:27 ABG pCO2 59 mmHg (35-45) H 06/21/16 08:27 ABG pO2 83 mmHg (85-104) L 06/21/16 08:27 ABG HCO3 29.7 mEQ/L (21-27) H 06/21/16 08:27 ABG O2 Saturation 95 % (95-98) 06/21/16 08:27 Calcium 8.9 mg/dL (8.6-10.8) 06/28/16 09:48 Phosphorus 4.3 mg/dL (2.3-4.7) 06/28/16 09:48 Magnesium 1.5 mg/dL (1.6-2.6) L 06/28/16 09:48 Urine Sodium 49.0 mEq/L 06/27/16 11:15 Consult Discharge Plan - Plan Referrals: Joanna Chacko MD [Primary Care Provider] - (PT IS FROM ECF, NO PCP APPOINTMENT NEEDED)
[2016-06-28] MEDS ORDERED: Furosemide 40 MG/4 ML VIAL IVP ONE (14:54)
[2016-06-28] MEDS: *HR* Warfarin 3 MG TABLET PO SCH (18:52)
[2016-06-28] MEDS: Albuterol 2.5 MG/3 ML NEBULIZER IH PRN (19:37)
[2016-06-28] MEDS: Insulin DETEMIR 100 UNIT/ML X5UNITS SQ SCH (21:57)
[2016-06-29] MEDS: *HR* OxyCODONE Immed Rel 5 MG TABLET PO PRN (03:56)
[2016-06-29] MEDS: Meropenem 1,000 MG in 0.9 % Sodium Chloride Mini Bag 100 ML IVPB SCH ×2 (03:57→17:43)
[2016-06-29] MEDS: Ipratropium/Albuterol Neb 3 ML IH SCH ×4 (05:06→23:28)
[2016-06-29 05:38] LABS: Basophils # 0.1 K/mcL (0.0-0.2); Basophils % 0.4 %; Eosinophils # 0.3 K/mcL (0.0-0.6); Eosinophils % 2.2 %; Hematocrit 30.3 % (37.5-50.1); Hemoglobin 9.5 g/dL (12.9-16.9); Immature Granulocytes % 2.1 % (0-4); Lymphocytes # 0.9 K/mcL (0.6-4.6); Lymphocytes % 6.2 %; Mean Corpuscular HGB Conc 31.4 g/dL (31.6-35.5); Mean Corpuscular Hemoglobin 26.4 pg (28.0-33.3); Mean Corpuscular Volume 84.2 fL (83.0-100.0); Monocytes # 0.6 K/mcL (0.0-1.3); Monocytes % 4.2 %; Neutrophils # 11.7 K/mcL (1.6-8.9); Nucleated Red Blood Cells 0.3 /100 WBC (0); Platelet Count 281 K/mcL (140-400); Red Cell Distribution Width 15.2 % (11.5-14.5); Segmented Neutrophils % 84.9 %
[2016-06-29 05:40] LABS: Prothrombin Time 22.4 Seconds (9.4-12.1)
[2016-06-29 05:49] LABS: Calcium 9.3 mg/dL (8.6-10.8); Magnesium 1.6 mg/dL (1.6-2.6); Phosphorous 3.3 mg/dL (2.3-4.7); Potassium 4.8 mEq/L (3.5-4.5)
[2016-06-29] MEDS: Isosorbide MONOnitrate (24 HR) 60 MG TAB.ER.24H PO SCH (09:45)
--- NOTE | 2016-06-29 09:53 | Nephrology Progress Note ---
Date of Encounter: 06/29/16 Time of Encounter: 09:52 - Assessment and Plan (1) Leukocytosis Current Visit: Yes Status: Acute Unclear etiology. Patient on appropriate antibiotics based on culture data. Patient has yeast in urine, but could be colonization. If no other infectious source found. Consider treating with antifungal agent. Monitor for diarrhea/Cdiff. Evaluate for other causes of infection. Agree with CXR. If febrile consider repeat blood and urine culture. Qualifiers: Qualified Code(s): D72.829 - Elevated white blood cell count, unspecified (2) Acute on chronic renal failure Current Visit: Yes Status: Acute Renal function continues to approach baseline renal function. Will restart diuresis and evaluate for renal response. (3) Anemia Current Visit: Yes Status: Acute Follow hemoglobin. Transfuse as needed. Hemoglobin trended down to the point of requiring tranfusion. No clear source of bleeding. Recommend checking iron stores and stool for occult blood. Qualifiers: Anemia type: unspecified type Qualified Code(s): D64.9 - Anemia, unspecified (4) Morbid obesity Current Visit: Yes Status: Chronic outpatient management. 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 Qualifiers: Qualified Code(s): E87.70 - Fluid overload, unspecified Subjective Principal diagnosis: JONELLE on CKD, UTI Interval history: Patient seen and evaluated. No new complaint. He denies shortness of breath of cough. No new pain. ROS otherwise is stable. Objective - Vital Signs Vital signs: Vital Signs Temp Pulse Resp BP Pulse Ox 06/29/16 08:55 24 159/96 94 L 06/29/16 08:00 97.6 F 85 24 159/96 90 L 06/29/16 05:16 86 19 97 06/29/16 05:08 23 98 06/29/16 04:00 100.0 F H 82 19 150/92 97 06/29/16 01:32 71 24 97 06/29/16 00:18 100.0 F H 66 24 128/91 97 06/28/16 23:20 23 94 L 06/28/16 22:37 23 98 06/28/16 20:51 98.7 F 69 23 135/83 96 06/28/16 19:40 25 97 06/28/16 16:20 68 93 L 06/28/16 15:56 18 90 L 06/28/16 15:38 98.7 F 83 20 174/91 90 L 06/28/16 12:04 93 L 06/28/16 11:45 75 06/28/16 11:39 98.3 F 69 18 114/61 06/28/16 10:35 16 94 L Intake and Output 06/28/16 06/29/16 06/29/16 23:59 07:59 15:59 Intake Total 724 / 724 240 / 240 360 / 360 Output Total 2750 / 2750 1900 / 1900 Balance -2025 / -2025 -1659 / -1659 360 / 360 Intake: IV Fluids 100 / 100 Merrem 1,000 MG In 0.9 % 100 / 100 Sodium Chloride (Mini-Bag +) 100 ML @ 200 mls/hr IVPB Q12H [facility] Rx#: [id number] Oral 624 / 624 240 / 240 360 / 360 Output: Urine 800 / 800 Urethral ([place]) 800 / 800 Catheter 1950 / 1950 1900 / 1900 Other: Meal Dinner Breakfast Percent of Meal Consumed 50% 100% Weight 153.2 kg Blood Glucose* 218 142 Patient Weight 06/29/16 23:59 Weight 153.2 kg - General Appearance General appearance: Present: well-developed, well-nourished, obese EENT: Present: ATNC Neck: Present: supple Additional Comments: respirations are unlabored. Patient with bipap mask in place. Cardiology: Present: regular rate Gastrointestinal: Present: obese Neurologic: Present: alert and oriented x3 Psychiatric: Present: mood/affect appropriate - Lab 06/29/16 04:59 06/29/16 04:59 Most recent lab results ABG pH 7.31 pH Units (7.32-7.45) L 06/21/16 08:27 ABG pCO2 59 mmHg (35-45) H 06/21/16 08:27 ABG pO2 83 mmHg (85-104) L 06/21/16 08:27 ABG HCO3 29.7 mEQ/L (21-27) H 06/21/16 08:27 ABG O2 Saturation 95 % (95-98) 06/21/16 08:27 Calcium 9.3 mg/dL (8.6-10.8) 06/29/16 04:59 Phosphorus 3.3 mg/dL (2.3-4.7) 06/29/16 04:59 Magnesium 1.6 mg/dL (1.6-2.6) 06/29/16 04:59 Urine Sodium 49.0 mEq/L 06/27/16 11:15 Consult Discharge Plan - Plan Referrals: Joanna Chacko MD [Primary Care Provider] - (PT IS FROM ECF, NO PCP APPOINTMENT NEEDED)
[2016-06-29] MEDS: Diltiazem CD (24hr) 180 MG CAPSULE PO SCH (09:56)
[2016-06-29] MEDS: Gabapentin 300 MG CAPSULE PO SCH ×3 (09:57→20:17)
[2016-06-29] MEDS: tiZANidine 4 MG TABLET PO SCH ×4 (09:59→20:16)
[2016-06-29] MEDS: Magnesium Oxide 400 MG TABLET PO SCH ×2 (10:01→20:16)
[2016-06-29] MEDS: Insulin LISPRO 300 UNITS/3 ML VIAL SQ SCH ×7 (10:02→20:29)
--- NOTE | 2016-06-29 12:22 | Internal Med Progress Note ---
Date of Encounter: 06/29/16 Time of Encounter: 12:19 - Assessment and plan (1) Sepsis Current Visit: Yes Status: Acute Assessment and plan: Secondary to ESBL UTI and Proteus mirabilis Afebrile since admission Leukocytosis persists but improved from previous day. Clinically patient is improving with good urine output and vitals within acceptable range Will continue Merem 1gm IV q8h at this time Will obtain CXR to r/o any cardiopulmonary pathology contributing to patient's leukoctosis Given worsening Leukocytosis and hypotension, will start Meropenem today and d/ c Zosyn grajeda catheter changed (06/26/16) f/u repeat Urine cultures ID consultation appreciated Will consider adding antifungal agent if leukocytosis does not begin to resolve on current therapy. Qualifiers: Sepsis type: sepsis due to unspecified organism Qualified Code(s): A41.9 - Sepsis, unspecified organism (2) Anemia Current Visit: Yes Status: Acute Assessment and plan: Of unclear etiology s/p 2 unit PRBC transfusion(06/27/16) Will obtain stool occult to rule out GI bleed-awaiting stool from patient H&H post transfusion within acceptable range no active bleeding noted at this time will continue to closely monitor Qualifiers: Anemia type: unspecified type Qualified Code(s): D64.9 - Anemia, unspecified (3) Acute on chronic renal failure Current Visit: Yes Status: Acute Assessment and plan: Nonoliguric JONELLE on CKD stage III. renal function improved from previous day with good urine output will continue to avoid nephrotoxic agents continue to monitor renal profile Hyperkalemia improving Presently with ESBL UTI, acute respiratory failure Renal US: no hydronephrosis/abscess or abnormality reported Urine culture with Proteus Mirabilis ESBL, E. Coli ESBL Continue to monitor I/O Nephrology consultation appreciated (4) COPD with acute exacerbation Current Visit: Yes Status: Acute Assessment and plan: Continue duonebs, current regimen monitor O2 saturation (goal O2 sat: 89-92%) out of bed to chair with assistance (5) Atrial fibrillation Current Visit: Yes Status: Chronic Assessment and plan: HR controlled, Continue patient's home meds INR within therapeutic range continue Coumadin goal INR:2-3 Qualifiers: Atrial fibrillation type: chronic Qualified Code(s): I48.2 - Chronic atrial fibrillation (6) Chronic indwelling Grajeda catheter Current Visit: Yes Status: Chronic Assessment and plan: From ECF changed grajeda cath 06/26/16 (7) DM2 (diabetes mellitus, type 2) Current Visit: Yes Status: Chronic Assessment and plan: Hyperglycemia persists Required 22units correctional insulin coverage in the last 24hours. continue Levemir to 50units qHS and Humalog to 20units TIDAC continue to monitor fingerstick and blood glucose continue sliding scale correctional insulin coverage as needed Qualifiers: Diabetes mellitus complication status: with circulatory complication Diabetes mellitus complication detail: with other circulatory complications Diabetes mellitus ad terminal makeup operator insulin use: with nursing home use Qualified Code(s) : E11.59 - Type 2 diabetes mellitus with other circulatory complications; Z79.4 - custodial (current) use of insulin (8) History of CHF (congestive heart failure) Current Visit: Yes Status: Chronic (9) History of hyperlipidemia Current Visit: Yes Status: Chronic (10) Morbid obesity Current Visit: Yes Status: Chronic Qualifiers: Obesity type: with alveolar hypoventilation Qualified Code(s): 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 (11) PAD (peripheral artery disease) Current Visit: Yes Status: Chronic (12) DVT prophylaxis Current Visit: Yes Status: Acute Assessment and plan: On coumadin (13) DVT (deep venous thrombosis) Current Visit: Yes Status: Acute Assessment and plan: LUE venous doppler noted for acute superficial thrombosis patient already on anticoagulation therapy will continue to monitor Qualifiers: DVT location: upper extremity Affected thrombotic vein of extremity: other upper extremity vein Laterality: left Chronicity: acute Qualified Code(s) : I82.622 - Acute embolism and thrombosis of deep veins of left upper extremity - Subjective Interval history: Patient seen and examined at bedside. Resting in bed. Reports of improvement in breathing. No overnight issues were reported. Improvement in renal function and H&H noted. - Constitutional Vitals: Temp Pulse Resp BP Pulse Ox 98.7 F 72 21 102/50 100 06/29/16 12:00 06/29/16 12:00 06/29/16 12:00 06/29/16 12:00 06/29/16 12:00 General appearance: Present: A&O X 3, morbidly obese, pleasant, no acute distress, answers questions appropriately - Head Head exam: Present: atraumatic, normocephalic - Eye Eye exam: Present: normal appearance, conjuntiva pink, sclera anicteric - Respiratory Respiratory exam: Absent: respiratory distress, wheezes - Cardiovascular Cardiovascular exam: Present: RRR, +S1, +S2 - GI/Abdominal GI/Abdominal exam: Present: normal bowel sounds, soft. Absent: tenderness - Extremities Exam Extremities exam: Present: pedal edema, warm, radial pulses palpable and symetrical. Absent: calf tenderness Additional comments: s/p right AKA - Neurological Exam Neurological exam: Present: alert, oriented X3 - Psychiatric Psychiatric exam: Present: normal affect, normal mood Internal Medicine: Result - Labs CBC & Chem 7: 06/29/16 04:59 06/29/16 04:59 Labs: Short CBC 06/29/16 Range/Units 04:59 WBC 13.8 H (4.3-11.1) K/mcL Hgb 9.5 L (12.9-16.9) g/dL Hct 30.3 L (37.5-50.1) % Plt Count 281 (140-400) K/mcL Neutrophils # 11.7 H (1.6-8.9) K/mcL BMP 06/29/16 04:59 Sodium 137 Potassium 4.8 H Chloride 99 Carbon Dioxide 27 BUN 58 H Creatinine 1.59 H Glucose 153 H Calcium 9.3 - ABG Interpretation ABG results: ABG ABG pH 7.31 pH Units (7.32-7.45) L 06/21/16 08:27 ABG pCO2 59 mmHg (35-45) H 06/21/16 08:27 ABG pO2 83 mmHg (85-104) L 06/21/16 08:27 ABG O2 Saturation 95 % (95-98) 06/21/16 08:27 PT/INR, D-dimer PT 22.4 Seconds (9.4-12.1) H 06/29/16 04:59 - Impressions Impressions Chest X-Ray 06/28/16 11:22 IMPRESSION: Stable cardiomegaly. No acute cardiopulmonary process. D/ / 06/28/2016 13:05:01 Everton Stern MD / Emily Bojorquez Interpreting Provider: Everton Stern MD Consult Discharge Plan - Plan Referrals: Joanna Chacko MD [Primary Care Provider] - (PT IS FROM [facility], NO PCP APPOINTMENT NEEDED)
[2016-06-29] MEDS: Sennosides/Docusate Sodium TABLET PO SCH ×2 (14:37→20:16)
[2016-06-29] MEDS: *HR* Morphine 2 MG/ML SYRINGE IVP PRN (14:37)
[2016-06-29] MEDS: *HR* Warfarin 3 MG TABLET PO SCH (17:35)
[2016-06-29] MEDS ORDERED: Warfarin perPT PO PRN (18:00)
[2016-06-29] MEDS: Insulin DETEMIR 100 UNIT/ML X5UNITS SQ SCH (20:16)
[2016-06-30] MEDS: Ipratropium/Albuterol Neb 3 ML IH SCH ×4 (05:03→23:21)
[2016-06-30] MEDS: Meropenem 1,000 MG in 0.9 % Sodium Chloride Mini Bag 100 ML IVPB SCH ×2 (06:04→20:48)
[2016-06-30 09:13] LABS: Basophils # 0.1 K/mcL (0.0-0.2); Basophils % 0.5 %; Eosinophils # 0.3 K/mcL (0.0-0.6); Eosinophils % 2.6 %; Hematocrit 34.4 % (37.5-50.1); Lymphocytes # 0.9 K/mcL (0.6-4.6); Lymphocytes % 6.8 %; Mean Corpuscular HGB Conc 29.1 g/dL (31.6-35.5); Mean Corpuscular Hemoglobin 25.5 pg (28.0-33.3); Mean Corpuscular Volume 87.8 fL (83.0-100.0); Mean Platelet Volume 9.6 fL (9.4-12.4); Monocytes # 0.5 K/mcL (0.0-1.3); Neutrophils # 10.8 K/mcL (1.6-8.9); Nucleated Red Blood Cells 0.2 /100 WBC (0); Platelet Count 279 K/mcL (140-400); Red Blood Count 3.92 M/mcL (4.19-5.50); Red Cell Distribution Width 15.4 % (11.5-14.5); Segmented Neutrophils % 84.1 %
[2016-06-30 09:21] LABS: INR 2.2; Prothrombin Time 24.5 Seconds (9.4-12.1)
[2016-06-30 09:34] LABS: BUN/Creatinine Ratio 41 (6-26); Blood Urea Nitrogen 56 mg/dL (8-26); Calcium 9.6 mg/dL (8.6-10.8); Carbon Dioxide 31 mEq/L (19-29); Chloride 101 mEq/L (98-109); Glucose 135 mg/dL (70-99); Magnesium 1.7 mg/dL (1.6-2.6); Osmolality,Calculated 308 (280-300); Phosphorous 3.1 mg/dL (2.3-4.7); Potassium 5.7 mEq/L (3.5-4.5); Sodium 140 mEq/L (136-145); eGFR For African Americans > 60 (> 60); eGFR For Non-African Americans 51 (> 60)
[2016-06-30] MEDS: Insulin LISPRO 300 UNITS/3 ML VIAL SQ SCH ×6 (09:36→18:04)
[2016-06-30] MEDS: Magnesium Oxide 400 MG TABLET PO SCH ×2 (09:46→20:33)
[2016-06-30] MEDS: Diltiazem CD (24hr) 180 MG CAPSULE PO SCH (09:46)
[2016-06-30] MEDS: Isosorbide MONOnitrate (24 HR) 60 MG TAB.ER.24H PO SCH (09:46)
[2016-06-30] MEDS: Gabapentin 300 MG CAPSULE PO SCH ×3 (09:46→20:34)
[2016-06-30] MEDS: tiZANidine 4 MG TABLET PO SCH ×4 (09:47→20:34)
[2016-06-30] MEDS: Sennosides/Docusate Sodium TABLET PO SCH ×2 (09:47→20:33)
--- NOTE | 2016-06-30 10:05 | Infectious Disease Progress No ---
Date of Encounter: 06/30/16 Time of Encounter: 10:03 - Assessment and Plan (1) Sepsis Current Visit: Yes Status: Acute The patient had two SIRS criteria plus JONELLE and acute encephalopathy. Likely secondary to UTI. Improved. WBC slightly worse today. No bandemia noted. The patient has been afebrile. His acute encephalopathy and JONELLE have resolved. Blood cultures drawn 06/19 x 2 sets and 06/20 x 2 sets are negative 4/ sets. Chest x-ray negative. Check peripheral smear. Check procalcitonin. Check CRP. Check LFTs, amylase, and lipase. May need to consider getting CT of the chest, abdomen and pelvis to evaluate for infectious process. Qualifiers: Sepsis type: sepsis due to unspecified organism Qualified Code(s): A41.9 - Sepsis, unspecified organism (2) UTI (urinary tract infection) Current Visit: No Status: Acute Causative organism E. coli ESBL and Proteus mirabilis. Likely secondary to chronic indwelling grajeda catheter. Grajeda catheter changed 06/25/16. Replaced again 06/26/16 due to catheter obstruction. Repeat urine culture is negative. Clinically, the patient appears to be improving. Continue Meropenem 1 gram IV Q8H (day 4). Monitor renal function closely and dose-adjust antibiotics. Duration of treatment depends on the clinical picture, but likely 10-14 days. Qualifiers: Urinary tract infection type: site unspecified Hematuria presence: without hematuria Qualified Code(s): N39.0 - Urinary tract infection, site not specified (3) Candiduria Current Visit: Yes Status: Acute Yeast noted on initial urinalysis. Repeat urinalysis showed no yeast. No indication to treat as the patient does not appear to have disseminated yeast infection and no plans for urinary tract manipulation. (4) Acute encephalopathy Current Visit: Yes Status: Acute Likely multifactorial: sepsis + UTI + hypercapnia. Improved. (5) Acute kidney injury Current Visit: Yes Status: Acute Nonoliguric. Serum creatinine >3 on arrival. Improved. Nephrology consulted and following. Continue nephro-protective strategy as outlined by the Nephrology team. Dose-adjust antibiotics based on creatinine clearance. (6) Acute and chronic respiratory failure with hypercapnia Current Visit: No Status: Acute Appears improved. Patient is off BIPAP and on nasal cannula O2. Management per the primary team. (7) Hyperkalemia Current Visit: Yes Status: Acute Improved. Serum potassium 5.7 today. Management per the primary team. (8) Left arm swelling Current Visit: Yes Status: Acute Etiology unclear, but improved. No evidence of erythema or warmth to indicate an infectious process. The patient did have an IV to the NBA arm, but no evidence of infiltration noted. X-rays negative. Management per the primary team. (9) Chronic indwelling Grajeda catheter Current Visit: Yes Status: Chronic Secondary to BPH. Grajeda changed per the nursing staff 06/26/16. (10) Atrial fibrillation Current Visit: Yes Status: Chronic Qualifiers: Atrial fibrillation type: chronic Qualified Code(s): I48.2 - Chronic atrial fibrillation (11) CAD (coronary artery disease) Current Visit: Yes Status: Chronic Qualifiers: Coronary Disease-Associated Artery/Lesion type: [place] artery [place] vs. transplanted heart: [place] heart Associated angina: without angina Qualified Code(s): I25.10 - Atherosclerotic heart disease of [place] coronary artery without angina pectoris (12) DM2 (diabetes mellitus, type 2) Current Visit: Yes Status: Chronic Qualifiers: Diabetes mellitus complication status: with circulatory complication Diabetes mellitus complication detail: with other circulatory complications Diabetes mellitus termination clerk insulin use: with termination clerk use Qualified Code(s) : E11.59 - Type 2 diabetes mellitus with other circulatory complications; Z79.4 - prison (current) use of insulin (13) Morbid obesity Current Visit: Yes Status: Chronic Qualifiers: Obesity type: with alveolar hypoventilation Qualified Code(s): 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 (14) PAD (peripheral artery disease) Current Visit: Yes Status: Chronic - Subjective Interval history: Patient seen and examined. Weekend notes reviewed. No acute events noted. Nursing staff at the bedside during the exam. Denies fevers or chills or rigors. Denies chest pain, shortness of breath, or cough. Denies nausea, vomiting, or diarrhea. Last known BM was per nursing staff. Denies abdominal pain. Grajeda catheter remains in place. Denies oral thrush. States LUE pain improved. Infect Dis PN-Objective Data - Labs CBC & Chem 7: 06/30/16 08:48 06/30/16 08:48 Labs: Laboratory Results - last 24 hr 06/29/16 06/29/16 06/29/16 07:17 11:38 16:30 WBC RBC Hgb Hct MCV MCH MCHC RDW Plt Count MPV Immature Gran % Seg Neutrophils % Lymphocytes % Monocytes % Eosinophils % Basophils % Neutrophils # Lymphocytes # Monocytes # Eosinophils # Basophils # Nucleated RBCs/100 WBC PT INR Sodium Potassium Chloride Carbon Dioxide BUN Creatinine Est GFR ( Amer) Est GFR (Non-Af Amer) BUN/Creatinine Ratio Glucose POC Glucose 142 H 185 H 166 H Calculated Osmolality Calcium Phosphorus Magnesium 06/29/16 06/30/16 06/30/16 20:15 08:48 08:48 WBC 12.9 H RBC 3.92 L Hgb 10.0 L Hct 34.4 L MCV 87.8 MCH 25.5 L MCHC 29.1 L RDW 15.4 H Plt Count 279 MPV 9.6 Immature Gran % 2.0 Seg Neutrophils % 84.1 Lymphocytes % 6.8 Monocytes % 4.0 Eosinophils % 2.6 Basophils % 0.5 Neutrophils # 10.8 H Lymphocytes # 0.9 Monocytes # 0.5 Eosinophils # 0.3 Basophils # 0.1 Nucleated RBCs/100 WBC 0.2 H PT 24.5 H INR 2.2 Sodium Potassium Chloride Carbon Dioxide BUN Creatinine Est GFR ( Amer) Est GFR (Non-Af Amer) BUN/Creatinine Ratio Glucose POC Glucose 149 H Calculated Osmolality Calcium Phosphorus Magnesium 06/30/16 08:48 WBC RBC Hgb Hct MCV MCH MCHC RDW Plt Count MPV Immature Gran % Seg Neutrophils % Lymphocytes % Monocytes % Eosinophils % Basophils % Neutrophils # Lymphocytes # Monocytes # Eosinophils # Basophils # Nucleated RBCs/100 WBC PT INR Sodium 140 Potassium 5.7 H Chloride 101 Carbon Dioxide 31 H BUN 56 H Creatinine 1.38 H Est GFR ( Amer) > 60 Est GFR (Non-Af Amer) 51 L BUN/Creatinine Ratio 41 H Glucose 135 H POC Glucose Calculated Osmolality 308 H Calcium 9.6 Phosphorus 3.1 Magnesium 1.7 Cultures: Cultures 06/25/16 10:21 Urine Culture - Final Urine,Catheterized No growth. 06/20/16 22:06 Blood Culture - Final Peripheral Venipuncture No growth. 06/20/16 22:06 Blood Culture - Final Peripheral Venipuncture No growth. 06/23/16 02:49 Urine Culture - Final Urine,Catheterized No pathogens isolated. Serology 06/27/16 06/26/16 06/23/16 Range/Units 11:15 12:30 02:49 Urine Color Yellow Yellow (Yellow) Urine Clarity Turbid A Cloudy A (Clear) Urine pH 5.5 5.0 (5.0-8.0) pH Units Ur Specific [place] 1.016 1.015 (1.010-1.025) Urine Protein >=300 H 30 H (Neg-Trace) mg/dL Urine Glucose (UA) Normal Normal (Normal) mg/dL Urine Ketones Negative Negative (Negative) mg/dL Urine Blood Large H Moderate H (Negative) Urine Nitrite Negative Negative (Negative) Urine Bilirubin Negative Negative (Negative) Urine Urobilinogen Normal Normal (Normal) mg/dL Ur Leukocyte Esterase Small H Large H (Negative) Urine Microscopic RBC 5-15 H 15-30 H (0-3) per hpf Urine Microscopic WBC 50-100 H TNTC H (0-3) per hpf Ur Squamous Epith Cells Moderate H Few (None-Few) per lpf Amorphous Sediment Few (Few) Urine Bacteria Few Few (None-Few) per hpf Hyaline Casts None Seen None Seen (None-Few) per lpf Urine Mucus Few (Few) Urine Yeast Test Not Performed Moderate H (None Seen) per hpf Urine Osmolality 314 (300-1090) mOsm/kg Urine Sodium 49.0 mEq/L - Impressions Impressions Chest X-Ray 06/28/16 11:22 IMPRESSION: Stable cardiomegaly. No acute cardiopulmonary process. D/ / 06/28/2016 13:05:01 Everton Stern MD / Emily Bojorquez Interpreting Provider: Everton Stern MD Exam - Constitutional Vitals: Temp Pulse Resp BP Pulse Ox 99 F 72 20 170/106 99 06/30/16 07:00 06/30/16 09:12 06/30/16 09:12 06/30/16 09:12 06/30/16 09:12 General appearance: cooperative, morbidly obese, no acute distress - Head Head exam: Present: atraumatic, normal inspection, normocephalic - Eye Eye exam: Present: EOMI, normal appearance, PERRL Pupils: Present: normal accommodation - ENT ENT exam: Present: mucous membranes moist - Neck Neck exam: Present: normal inspection - Respiratory Respiratory exam: Present: decreased breath sounds (bilateral bases), CTAB. Absent: rales, rhonchi, wheezes - Cardiovascular Cardiovascular exam: Present: RRR, +S1, +S2 - GI/Abdominal GI/Abdominal exam: Present: distended (obese), normal bowel sounds, soft. Absent: tenderness Additional comments: Grajeda catheter noted to be draining clear yellow urine. - Rectal Additional comments: Skin sloughing noted to multiple areas of the perineum and buttocks. No purulent drainage or bleeding noted. - Extremities Exam Extremities exam: Present: normal inspection, pedal edema (1+ LLE). Absent: joint swelling, tenderness Additional comments: LUE ROM improved. Minimal edema noted. Right LE AKA stump without erythema, drainage, or open wounds. - Back Exam Back exam: Present: normal inspection. Absent: paraspinal tenderness, vertebral tenderness - Neurological Exam Neurological exam: Present: alert, oriented X3, no focal deficits - Psychiatric Psychiatric exam: Present: normal affect, normal mood - Skin Skin exam: Present: dry, intact, normal color, warm - Additional findings Additional findings: EPIV noted to the RUE with transparent dressing C/D/I. No erythema, warmth, or tenderness noted at the insertion site. Consult Discharge Plan - Plan Referrals: Joanna Chacko MD [Primary Care Provider] - (PT IS FROM [facility], NO PCP APPOINTMENT NEEDED)
--- NOTE | 2016-06-30 10:15 | Nephrology Progress Note ---
Date of Encounter: 06/30/16 Time of Encounter: 10:13 - Assessment and Plan (1) Acute kidney injury Current Visit: Yes Status: Acute Nonoliguric JONELLE on CKD Stage III. SCr 1.38, GFR 51. SCr has returned to baseline. Patient has been drinking fluids orally. 06/29 oral intake 720, total input 920, UOP 4100 with NEGATIVE balance of -3130. Olmos catheter in place with straw colored urine. Na 140, K 5.7, Mg 1.7 Patient currently has UTI with cultures from 06/19 showing E. coli ESBL and proteus mirabilis ESBL. Olmos catheter replaced 06/25, patient on zosyn Q12h. Acute respiratory failure, patient has been requiring BiPAP during the day as well as at night over the weekend. Acute encephalopathy resolving. Patient drinking thickened liquids without difficulty. Renal US negative for hydronephrosis. Plan: -SCr has returned to baseline. -Stop diuretics -Agree with kayexalate today -Continue to ensure the patient is on a potassium restricted diet. -Continue to follow renal protective strategy: dose rx by GFR, avoid NSAID, Bactrim and contrast as able -Continue strict I/Os. It is important that we have accurate urine output to assess his volume status. -Continue Daily Weights. -No need for BONE PLANT SUPERVISOR at this time. (2) Acute on chronic renal failure Current Visit: Yes Status: Acute (3) Acute encephalopathy Current Visit: Yes Status: Acute Improving (4) Pneumonia Current Visit: Yes Status: Acute Qualifiers: Pneumonia type: aspiration pneumonia Aspiration pneumonia type: due to vomit Laterality: bilateral Lung location: unspecified part of lung Qualified Code(s): J69.0 - Pneumonitis due to inhalation of food and vomit Subjective Principal diagnosis: JONELLE on CKD, UTI Interval history: Patient seen and examined today. He denies any complaints Patient has had episodes of hypoxia on 4LNC. He has been on BiPap during the day when not eating as well as at night. He denies dizziness, visual changes, sob, cp, abdominal pain. Olmos catheter remains in place. Objective - Vital Signs Vital signs: Vital Signs Temp Pulse Resp BP Pulse Ox 06/30/16 09:12 72 20 170/106 99 06/30/16 07:00 99 F 74 16 186/106 96 06/30/16 05:04 18 99 06/30/16 04:00 67 18 99 06/30/16 03:37 99.0 F 66 24 166/94 100 06/30/16 00:34 99.1 F 68 28 114/83 99 06/29/16 23:29 19 100 06/29/16 23:20 47 25 97 06/29/16 20:22 98.8 F 69 25 115/69 97 06/29/16 16:00 99.8 F H 68 22 138/79 98 06/29/16 12:00 98.7 F 72 21 102/50 100 Intake and Output 06/29/16 06/30/16 06/30/16 23:59 07:59 15:59 Intake Total 220 / 220 120 / 120 Output Total 450 / 450 650 / 650 Balance -230 / -230 -530 / -530 Intake: IV Fluids 100 / 100 Merrem 1,000 MG In 0.9 % 100 / 100 Sodium Chloride (Mini-Bag +) 100 ML @ 200 mls/hr IVPB Q12H [facility] Rx#: [id number] Oral 120 / 120 120 / 120 Output: Catheter 450 / 450 650 / 650 Other: Meal Dinner Percent of Meal Consumed 10% Weight 153.8 kg Blood Glucose* 149 129 Patient Weight 06/30/16 23:59 Weight 153.8 kg - General Appearance General appearance: Present: obese, chronically ill EENT: Present: ATNC, mucous membranes moist Neck: Present: no JVD, supple Respiratory: Present: wheezing, course breath sounds Cardiology: Present: no murmurs, no rub, no gallops, edema (trace on Left hand, left LE), irregular rhythm Gastrointestinal: Present: normoactive bowel sounds, no tenderness, no guarding , obese Integumentary: Present: no rash, warm and dry Neurologic: Present: no focal deficit Musculoskeletal: Present: no erythema, no cyanosis, no clubbing Additional Comments: Right AKA - Lab 06/30/16 08:48 06/30/16 08:48 Most recent lab results ABG pH 7.31 pH Units (7.32-7.45) L 06/21/16 08:27 ABG pCO2 59 mmHg (35-45) H 06/21/16 08:27 ABG pO2 83 mmHg (85-104) L 06/21/16 08:27 ABG HCO3 29.7 mEQ/L (21-27) H 06/21/16 08:27 ABG O2 Saturation 95 % (95-98) 06/21/16 08:27 Calcium 9.6 mg/dL (8.6-10.8) 06/30/16 08:48 Phosphorus 3.1 mg/dL (2.3-4.7) 06/30/16 08:48 Magnesium 1.7 mg/dL (1.6-2.6) 06/30/16 08:48 Urine Sodium 49.0 mEq/L 06/27/16 11:15 - Imaging Kidney/bladder ultrasound: report reviewed Consult Discharge Plan - Plan Referrals: Joanna Chacko MD [Primary Care Provider] - (PT IS FROM [facility], NO PCP APPOINTMENT NEEDED)
[2016-06-30 10:57] LABS: Alanine Aminotransferase 48 Units/L (0-55); Albumin 2.3 g/dL (3.5-5.0); Albumin/Globulin Ratio 0.4 (1.1-2.2); Alkaline Phosphatase 132 Units/L (38-126); Amylase 37 Units/L (25-125); Aspartate Amino Transferase 28 Units/L (5-34); Bilirubin,Direct 0.3 mg/dL (0.0-0.5); Bilirubin,Indirect 0.1 mg/dL (0.0-1.2); Bilirubin,Total 0.4 mg/dL (0.2-1.2); Globulin 5.2 g/dL (2.4-3.5); Lipase 19 Units/L (8-78); Total Protein 7.5 g/dL (6.0-8.3)
[2016-06-30 11:00] LABS: C-Reactive Protein 170 mg/L (Less than 5)
--- NOTE | 2016-06-30 11:42 | Internal Med Progress Note ---
Date of Encounter: 06/30/16 Time of Encounter: 11:40 - Assessment and plan (1) Sepsis Current Visit: Yes Status: Acute Assessment and plan: Secondary to ESBL UTI and Proteus mirabilis Afebrile since admission Leukocytosis persists but improved from previous day. Clinically patient is improving with good urine output and vitals within acceptable range Will continue Merem 1gm IV q8h at this time grajeda catheter changed (06/26/16) f/u repeat Urine cultures ID consultation appreciated Qualifiers: Sepsis type: sepsis due to unspecified organism Qualified Code(s): A41.9 - Sepsis, unspecified organism (2) Anemia Current Visit: Yes Status: Acute Assessment and plan: Of unclear etiology s/p 2 unit PRBC transfusion(06/27/16) Will obtain stool occult to rule out GI bleed-awaiting stool from patient H&H post transfusion within acceptable range no active bleeding noted at this time will continue to closely monitor Qualifiers: Anemia type: unspecified type Qualified Code(s): D64.9 - Anemia, unspecified (3) Acute on chronic renal failure Current Visit: Yes Status: Acute Assessment and plan: Nonoliguric JONELLE on CKD stage III. renal function improved from previous day with good urine output will continue to avoid nephrotoxic agents continue to monitor renal profile Hyperkalemia noted: will give one time dose of Kayxelate Presently with ESBL UTI, acute respiratory failure Renal US: no hydronephrosis/abscess or abnormality reported Urine culture with Proteus Mirabilis ESBL, E. Coli ESBL Continue to monitor I/O REnal function at baseline good urine output noted Nephrology consultation appreciated (4) COPD with acute exacerbation Current Visit: Yes Status: Acute Assessment and plan: Continue duonebs, current regimen monitor O2 saturation (goal O2 sat: 89-92%) out of bed to chair with assistance (5) Atrial fibrillation Current Visit: Yes Status: Chronic Assessment and plan: HR controlled, Continue patient's home meds INR within therapeutic range continue Coumadin goal INR:2-3 Qualifiers: Atrial fibrillation type: chronic Qualified Code(s): I48.2 - Chronic atrial fibrillation (6) Chronic indwelling Grajeda catheter Current Visit: Yes Status: Chronic Assessment and plan: From [facility] changed grajeda cath 06/26/16 (7) DM2 (diabetes mellitus, type 2) Current Visit: Yes Status: Chronic Assessment and plan: Hyperglycemia persists Required 22units correctional insulin coverage in the last 24hours. continue Levemir to 50units qHS and Humalog to 20units TIDAC continue to monitor fingerstick and blood glucose continue sliding scale correctional insulin coverage as needed Qualifiers: Diabetes mellitus complication status: with circulatory complication Diabetes mellitus complication detail: with other circulatory complications Diabetes mellitus junior financial analyst insulin use: with residential use Qualified Code(s) : E11.59 - Type 2 diabetes mellitus with other circulatory complications; Z79.4 - exchange underwriting consultant (current) use of insulin (8) History of CHF (congestive heart failure) Current Visit: Yes Status: Chronic (9) History of hyperlipidemia Current Visit: Yes Status: Chronic (10) Morbid obesity Current Visit: Yes Status: Chronic Qualifiers: Obesity type: with alveolar hypoventilation Qualified Code(s): 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 (11) PAD (peripheral artery disease) Current Visit: Yes Status: Chronic (12) DVT prophylaxis Current Visit: Yes Status: Acute Assessment and plan: On coumadin (13) DVT (deep venous thrombosis) Current Visit: Yes Status: Acute Assessment and plan: LUE venous doppler noted for acute superficial thrombosis patient already on anticoagulation therapy will continue to monitor Qualifiers: DVT location: upper extremity Affected thrombotic vein of extremity: other upper extremity vein Laterality: left Chronicity: acute Qualified Code(s) : I82.622 - Acute embolism and thrombosis of deep veins of left upper extremity (14) Chronic respiratory failure Current Visit: Yes Status: Chronic Assessment and plan: patient chronically on home oxygen and bipap support goal O2: 89-92% Bipap at bedtime continue to monitor Qualifiers: Respiratory failure complication: hypoxia and hypercapnia Qualified Code(s) : J96.11 - Chronic respiratory failure with hypoxia; J96.12 - Chronic respiratory failure with hypercapnia (15) Hypertension Current Visit: Yes Status: Acute Assessment and plan: Noted to be hypertensive this morning Increased Carvedilol to 25mg PO q12h continue to monitor HR and BP Repeat BP within acceptable limits Qualifiers: Hypertension type: essential hypertension Qualified Code(s): I10 - Essential (primary) hypertension - Subjective Interval history: Patient seen and examined at bedside. Resting in bed. Patient reports of difficulty breathing however saturating well on nasal cannula and continues to ask for bipap support throughout the day. Repeat CXR: no acute cardiopulmonary process noted - Constitutional Vitals: Temp Pulse Resp BP Pulse Ox 99 F 72 20 170/106 97 06/30/16 07:00 06/30/16 09:12 06/30/16 10:44 06/30/16 09:12 06/30/16 10:44 General appearance: Present: A&O X 3, morbidly obese, pleasant, no acute distress, answers questions appropriately - Head Head exam: Present: atraumatic, normocephalic - Eye Eye exam: Present: conjuntiva pink, sclera anicteric - Respiratory Respiratory exam: Absent: respiratory distress, wheezes - Cardiovascular Cardiovascular exam: Present: RRR, +S1, +S2 - GI/Abdominal GI/Abdominal exam: Present: distended (obese ), normal bowel sounds, soft. Absent: tenderness - Extremities Exam Extremities exam: Present: pedal edema (s/p right AKA), warm, radial pulses palpable and symetrical - Neurological Exam Neurological exam: Present: alert, oriented X3 - Psychiatric Psychiatric exam: Present: normal affect, normal mood Internal Medicine: Result - Labs CBC & Chem 7: 06/30/16 08:48 06/30/16 08:48 Labs: Short CBC 06/30/16 Range/Units 08:48 WBC 12.9 H (4.3-11.1) K/mcL Hgb 10.0 L (12.9-16.9) g/dL Hct 34.4 L (37.5-50.1) % Plt Count 279 (140-400) K/mcL Neutrophils # 10.8 H (1.6-8.9) K/mcL BMP 06/30/16 08:48 Sodium 140 Potassium 5.7 H Chloride 101 Carbon Dioxide 31 H BUN 56 H Creatinine 1.38 H Glucose 135 H Calcium 9.6 Liver Function 06/30/16 Range/Units 08:48 Total Bilirubin 0.4 (0.2-1.2) mg/dL Direct Bilirubin 0.3 (0.0-0.5) mg/dL AST 28 (5-34) Units/L ALT 48 (0-55) Units/L Alkaline Phosphatase 132 H (38-126) Units/L Albumin 2.3 L (3.5-5.0) g/dL - ABG Interpretation ABG results: ABG ABG pH 7.31 pH Units (7.32-7.45) L 06/21/16 08:27 ABG pCO2 59 mmHg (35-45) H 06/21/16 08:27 ABG pO2 83 mmHg (85-104) L 06/21/16 08:27 ABG O2 Saturation 95 % (95-98) 06/21/16 08:27 PT/INR, D-dimer PT 24.5 Seconds (9.4-12.1) H 06/30/16 08:48 - Impressions Impressions Chest X-Ray 06/28/16 11:22 IMPRESSION: Stable cardiomegaly. No acute cardiopulmonary process. D/ / 06/28/2016 13:05:01 Everton Stern MD / Emily Bojorquez Interpreting Provider: Everton Stern MD Consult Discharge Plan - Plan Referrals: Joanna Chacko MD [Primary Care Provider] - (PT IS FROM [facility], NO PCP APPOINTMENT NEEDED)
[2016-06-30] MEDS: *HR* Warfarin 3 MG TABLET PO SCH (17:55)
[2016-06-30] MEDS: Insulin DETEMIR 100 UNIT/ML X5UNITS SQ SCH (20:33)
[2016-07-01] MEDS: Insulin LISPRO 300 UNITS/3 ML VIAL SQ SCH ×8 (00:20→21:37)
[2016-07-01] MEDS: Meropenem 1,000 MG in 0.9 % Sodium Chloride Mini Bag 100 ML IVPB SCH ×2 (02:41→10:51)
[2016-07-01] MEDS: *HR* OxyCODONE Immed Rel 5 MG TABLET PO PRN ×2 (03:52→19:10)
[2016-07-01] MEDS: Ipratropium/Albuterol Neb 3 ML IH SCH ×4 (05:29→23:56)
[2016-07-01 06:14] LABS: ABG Base Excess 10.1 mEq/L (-2.0 to 3.0); ABG HCO3 36.5 mEQ/L (21-27); ABG Oxygen Saturation 97 % (95-98); ABG PCO2 59 mmHg (35-45); ABG PO2 91 mmHg (85-104); ABG TCO2 38.3 mEq/L (20-26)
[2016-07-01 06:15] LABS: Blood Gas FiO2 30 %; Blood Gas PEEP 10 cm H2O; Blood Gas Respiration Rate 20
[2016-07-01 07:06] LABS: INR 2.6; Prothrombin Time 29.3 Seconds (9.4-12.1)
[2016-07-01 09:46] LABS: Basophils # 0.1 K/mcL (0.0-0.2); Basophils % 0.6 %; Eosinophils # 0.4 K/mcL (0.0-0.6); Eosinophils % 3.1 %; Hematocrit 32.3 % (37.5-50.1); Hemoglobin 9.6 g/dL (12.9-16.9); Immature Granulocytes % 1.5 % (0-4); Lymphocytes # 1.2 K/mcL (0.6-4.6); Lymphocytes % 9.5 %; Mean Corpuscular HGB Conc 29.7 g/dL (31.6-35.5); Mean Corpuscular Hemoglobin 25.9 pg (28.0-33.3); Mean Corpuscular Volume 87.3 fL (83.0-100.0); Mean Platelet Volume 9.9 fL (9.4-12.4); Monocytes # 0.6 K/mcL (0.0-1.3); Monocytes % 4.5 %; Neutrophils # 10.4 K/mcL (1.6-8.9); Nucleated Red Blood Cells 0.2 /100 WBC (0); Platelet Count 288 K/mcL (140-400); Red Cell Distribution Width 15.3 % (11.5-14.5); Segmented Neutrophils % 80.8 %
[2016-07-01 09:58] LABS: BUN/Creatinine Ratio 37 (6-26); Blood Urea Nitrogen 48 mg/dL (8-26); Calcium 9.6 mg/dL (8.6-10.8); Carbon Dioxide 31 mEq/L (19-29); Chloride 101 mEq/L (98-109); Glucose 117 mg/dL (70-99); Osmolality,Calculated 304 (280-300); Potassium 5.5 mEq/L (3.5-4.5); Sodium 140 mEq/L (136-145); eGFR For African Americans > 60 (> 60); eGFR For Non-African Americans 55 (> 60)
--- NOTE | 2016-07-01 10:13 | Nephrology Progress Note ---
Date of Encounter: 07/01/16 Time of Encounter: 10:11 - Assessment and Plan (1) Acute kidney injury Current Visit: Yes Status: Acute Patient kidney function back to his baseline Nephrology signing off case Follow up in office in 3-6 weeks BMP one week before office appointment (2) CKD (chronic kidney disease), stage III Current Visit: Yes Status: Acute Avoid nephrotoxins if possible Follow up with nephrology (3) Pneumonia Current Visit: No Status: Acute per primary team Qualifiers: Pneumonia type: aspiration pneumonia Aspiration pneumonia type: unspecified Lung location: lower lobe of lung Qualified Code(s): J69.0 - Pneumonitis due to inhalation of food and vomit Subjective Principal diagnosis: JONELLE on CKD, UTI Interval history: Patient seen and examined. States he is feeling well. Objective - Vital Signs Vital signs: Vital Signs Temp Pulse Resp BP Pulse Ox 07/01/16 08:00 93 L 07/01/16 07:00 98.9 F 89 185/99 93 L 07/01/16 05:29 21 97 07/01/16 03:00 98.9 F 76 22 158/87 97 06/30/16 23:21 27 98 06/30/16 21:17 98.3 F 78 18 119/75 94 L 06/30/16 20:00 69 18 96 06/30/16 17:05 18 94 L 06/30/16 16:17 99 F 71 18 146/87 93 L 06/30/16 11:00 99.1 F 56 18 113/72 96 06/30/16 10:44 20 97 Intake and Output 06/30/16 07/01/16 07/01/16 23:59 07:59 15:59 Intake Total 400 / 400 120 / 120 360 / 360 Output Total 750 / 750 900 / 900 Balance -350 / -350 -780 / -780 360 / 360 Intake: Oral 400 / 400 120 / 120 360 / 360 Output: Catheter 750 / 750 900 / 900 Other: Meal Breakfast Percent of Meal Consumed 50% Stool Size Copious Stool Consistency loose liquid formed Stool Color Brown # Bowel Movements 0 Weight 158.4 kg Blood Glucose* 185 114 Patient Weight 07/01/16 23:59 Weight 158.4 kg - General Appearance General appearance: Present: obese EENT: Present: ATNC, mucous membranes moist, hearing intact, vision intact Neck: Present: supple Respiratory: Present: clear (0n bipap) Cardiology: Present: normal S1, normal S2 Gastrointestinal: Present: no tenderness, no guarding Integumentary: Present: warm and dry Neurologic: Present: alert and oriented x3 Psychiatric: Present: mood/affect appropriate, cooperative - Lab 07/01/16 09:05 07/01/16 09:05 Most recent lab results ABG pH 7.40 pH Units (7.32-7.45) 07/01/16 05:49 ABG pCO2 59 mmHg (35-45) H 07/01/16 05:49 ABG pO2 91 mmHg (85-104) 07/01/16 05:49 ABG HCO3 36.5 mEQ/L (21-27) H 07/01/16 05:49 ABG O2 Saturation 97 % (95-98) 07/01/16 05:49 Calcium 9.6 mg/dL (8.6-10.8) 07/01/16 09:05 Phosphorus 3.1 mg/dL (2.3-4.7) 06/30/16 08:48 Magnesium 1.7 mg/dL (1.6-2.6) 06/30/16 08:48 Urine Sodium 49.0 mEq/L 06/27/16 11:15 Consult Discharge Plan - Plan Referrals: Joanna Chacko MD [Primary Care Provider] - (PT IS FROM [facility], NO PCP APPOINTMENT NEEDED)
[2016-07-01] MEDS: Gabapentin 300 MG CAPSULE PO SCH ×3 (10:51→21:45)
[2016-07-01] MEDS: Diltiazem CD (24hr) 180 MG CAPSULE PO SCH (10:51)
[2016-07-01] MEDS: tiZANidine 4 MG TABLET PO SCH ×4 (10:51→21:45)
[2016-07-01] MEDS: Isosorbide MONOnitrate (24 HR) 60 MG TAB.ER.24H PO SCH (10:51)
[2016-07-01] MEDS: Magnesium Oxide 400 MG TABLET PO SCH ×2 (10:52→21:36)
[2016-07-01] MEDS: Sennosides/Docusate Sodium TABLET PO SCH ×2 (10:52→21:36)
--- NOTE | 2016-07-01 11:43 | Infectious Disease Progress No ---
Date of Encounter: 07/01/16 Time of Encounter: 09:30 - Assessment and Plan (1) Sepsis Current Visit: Yes Status: Acute The patient had two SIRS criteria plus JONELLE and acute encephalopathy. Likely secondary to UTI. Improved. WBC slightly stable today. No bandemia noted. The patient has been afebrile. His acute encephalopathy and JONELLE have resolved. Blood cultures drawn 06/19 x 2 sets and 06/20 x 2 sets are negative 4/ sets. Chest x-ray negative. Peripheral smear shows neutrophilia, but no toxic granules or Dohle bodies. Procalcitonin is pending. CRP elevated. LFTs, amylase, and lipase are all normal. May need to consider getting CT of the chest, abdomen and pelvis to evaluate for infectious process. Qualifiers: Sepsis type: sepsis due to unspecified organism Qualified Code(s): A41.9 - Sepsis, unspecified organism (2) UTI (urinary tract infection) Current Visit: No Status: Acute Causative organism E. coli ESBL and Proteus mirabilis. Likely secondary to chronic indwelling grajeda catheter. Grajeda catheter changed 06/25/16. Replaced again 06/26/16 due to catheter obstruction. Repeat urine culture is negative. Clinically, the patient appears to be improving. Continue Meropenem 1 gram IV Q8H (day 5). Monitor renal function closely and dose-adjust antibiotics. Duration of treatment depends on the clinical picture, but likely 10-14 days. Qualifiers: Urinary tract infection type: site unspecified Hematuria presence: without hematuria Qualified Code(s): N39.0 - Urinary tract infection, site not specified (3) Candiduria Current Visit: Yes Status: Acute Yeast noted on initial urinalysis. Repeat urinalysis showed no yeast. No indication to treat as the patient does not appear to have disseminated yeast infection and no plans for urinary tract manipulation. (4) Acute encephalopathy Current Visit: Yes Status: Acute Likely multifactorial: sepsis + UTI + hypercapnia. Improved. (5) Acute kidney injury Current Visit: Yes Status: Acute Nonoliguric. Serum creatinine >3 on arrival. Improved. Back at baseline. Nephrology consulted and has signed off. Continue nephro-protective strategy as outlined by the Nephrology team. Dose-adjust antibiotics based on creatinine clearance. (6) Acute and chronic respiratory failure with hypercapnia Current Visit: No Status: Acute Appears improved. Management per the primary team. (7) Hyperkalemia Current Visit: Yes Status: Acute Improved. Serum potassium 5.5 today. Management per the primary team. (8) Left arm swelling Current Visit: Yes Status: Acute Etiology unclear, but improved. No evidence of erythema or warmth to indicate an infectious process. The patient did have an IV to the NBA arm, but no evidence of infiltration noted. X-rays negative. Management per the primary team. (9) Chronic indwelling Grajeda catheter Current Visit: Yes Status: Chronic Secondary to BPH. Grajeda changed per the nursing staff 06/26/16. (10) Atrial fibrillation Current Visit: Yes Status: Chronic Qualifiers: Atrial fibrillation type: chronic Qualified Code(s): I48.2 - Chronic atrial fibrillation (11) CAD (coronary artery disease) Current Visit: Yes Status: Chronic Qualifiers: Coronary Disease-Associated Artery/Lesion type: [place] artery [place] vs. transplanted heart: [place] heart Associated angina: without angina Qualified Code(s): I25.10 - Atherosclerotic heart disease of [place] coronary artery without angina pectoris (12) DM2 (diabetes mellitus, type 2) Current Visit: Yes Status: Chronic Qualifiers: Diabetes mellitus complication status: with circulatory complication Diabetes mellitus complication detail: with other circulatory complications Diabetes mellitus alf insulin use: with oil heaterman use Qualified Code(s) : E11.59 - Type 2 diabetes mellitus with other circulatory complications; Z79.4 - shelter (current) use of insulin (13) Morbid obesity Current Visit: Yes Status: Chronic Qualifiers: Obesity type: with alveolar hypoventilation Qualified Code(s): 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 (14) PAD (peripheral artery disease) Current Visit: Yes Status: Chronic - Subjective Interval history: Patient seen and examined. No acute events noted overnight. Denies fevers or chills or rigors. Denies chest pain, shortness of breath, or cough. Denies nausea, vomiting, or diarrhea. Denies abdominal pain. Grajeda catheter remains in place. Patient complains of pain in the penile region, improved with manipulation of the grajeda catheter to improve drainage. Denies oral thrush. States LUE pain improved. Infect Dis PN-Objective Data - Labs CBC & Chem 7: 07/01/16 09:05 07/01/16 09:05 Labs: Laboratory Results - last 24 hr 06/30/16 06/30/16 06/30/16 07:17 12:02 16:21 WBC RBC Hgb Hct MCV MCH MCHC RDW Plt Count MPV Immature Gran % Seg Neutrophils % Lymphocytes % Monocytes % Eosinophils % Basophils % Neutrophils # Lymphocytes # Monocytes # Eosinophils # Basophils # Nucleated RBCs/100 WBC PT INR ABG pH ABG pCO2 ABG pO2 ABG HCO3 ABG Total CO2 ABG O2 Saturation ABG Base Excess Respiration Rate Blood Gas Modality Inspired O2 PEEP Sodium Potassium Chloride Carbon Dioxide BUN Creatinine Est GFR ( Amer) Est GFR (Non-Af Amer) BUN/Creatinine Ratio Glucose POC Glucose 129 H 153 H 152 H Calculated Osmolality Calcium Stool Occult Blood 06/30/16 06/30/16 07/01/16 18:30 19:41 05:49 WBC RBC Hgb Hct MCV MCH MCHC RDW Plt Count MPV Immature Gran % Seg Neutrophils % Lymphocytes % Monocytes % Eosinophils % Basophils % Neutrophils # Lymphocytes # Monocytes # Eosinophils # Basophils # Nucleated RBCs/100 WBC PT INR ABG pH 7.40 ABG pCO2 59 H ABG pO2 91 ABG HCO3 36.5 H ABG Total CO2 38.3 H ABG O2 Saturation 97 ABG Base Excess 10.1 H Respiration Rate 20 Blood Gas Modality BIPAP Inspired O2 30 PEEP 10 Sodium Potassium Chloride Carbon Dioxide BUN Creatinine Est GFR ( Amer) Est GFR (Non-Af Amer) BUN/Creatinine Ratio Glucose POC Glucose 185 H Calculated Osmolality Calcium Stool Occult Blood Positive A 07/01/16 07/01/16 07/01/16 06:29 09:05 09:05 WBC 12.9 H RBC 3.70 L Hgb 9.6 L Hct 32.3 L MCV 87.3 MCH 25.9 L MCHC 29.7 L RDW 15.3 H Plt Count 288 MPV 9.9 Immature Gran % 1.5 Seg Neutrophils % 80.8 Lymphocytes % 9.5 Monocytes % 4.5 Eosinophils % 3.1 Basophils % 0.6 Neutrophils # 10.4 H Lymphocytes # 1.2 Monocytes # 0.6 Eosinophils # 0.4 Basophils # 0.1 Nucleated RBCs/100 WBC 0.2 H PT 29.3 H INR 2.6 ABG pH ABG pCO2 ABG pO2 ABG HCO3 ABG Total CO2 ABG O2 Saturation ABG Base Excess Respiration Rate Blood Gas Modality Inspired O2 PEEP Sodium 140 Potassium 5.5 H Chloride 101 Carbon Dioxide 31 H BUN 48 H Creatinine 1.29 H Est GFR ( Amer) > 60 Est GFR (Non-Af Amer) 55 L BUN/Creatinine Ratio 37 H Glucose 117 H POC Glucose Calculated Osmolality 304 H Calcium 9.6 Stool Occult Blood Cultures: Cultures 06/25/16 10:21 Urine Culture - Final Urine,Catheterized No growth. 06/20/16 22:06 Blood Culture - Final Peripheral Venipuncture No growth. 06/20/16 22:06 Blood Culture - Final Peripheral Venipuncture No growth. 06/23/16 02:49 Urine Culture - Final Urine,Catheterized No pathogens isolated. Serology 06/30/16 06/27/16 06/26/16 Range/Units 18:30 11:15 12:30 Urine Color Yellow (Yellow) Urine Clarity Turbid A (Clear) Urine pH 5.5 (5.0-8.0) pH Units Ur Specific [place] 1.016 (1.010-1.025) Urine Protein >=300 H (Neg-Trace) mg/dL Urine Glucose (UA) Normal (Normal) mg/dL Urine Ketones Negative (Negative) mg/dL Urine Blood Large H (Negative) Urine Nitrite Negative (Negative) Urine Bilirubin Negative (Negative) Urine Urobilinogen Normal (Normal) mg/dL Ur Leukocyte Esterase Small H (Negative) Urine Microscopic RBC 5-15 H (0-3) per hpf Urine Microscopic WBC 50-100 H (0-3) per hpf Ur Squamous Epith Cells Moderate H (None-Few) per lpf Amorphous Sediment (Few) Urine Bacteria Few (None-Few) per hpf Hyaline Casts None Seen (None-Few) per lpf Urine Mucus (Few) Urine Yeast Test Not Performed (None Seen) per hpf Urine Osmolality 314 (300-1090) mOsm/kg Urine Sodium 49.0 mEq/L Stool Occult Blood Positive A (Negative) 06/23/16 Range/Units 02:49 Urine Color Yellow (Yellow) Urine Clarity Cloudy A (Clear) Urine pH 5.0 (5.0-8.0) pH Units Ur Specific [place] 1.015 (1.010-1.025) Urine Protein 30 H (Neg-Trace) mg/dL Urine Glucose (UA) Normal (Normal) mg/dL Urine Ketones Negative (Negative) mg/dL Urine Blood Moderate H (Negative) Urine Nitrite Negative (Negative) Urine Bilirubin Negative (Negative) Urine Urobilinogen Normal (Normal) mg/dL Ur Leukocyte Esterase Large H (Negative) Urine Microscopic RBC 15-30 H (0-3) per hpf Urine Microscopic WBC TNTC H (0-3) per hpf Ur Squamous Epith Cells Few (None-Few) per lpf Amorphous Sediment Few (Few) Urine Bacteria Few (None-Few) per hpf Hyaline Casts None Seen (None-Few) per lpf Urine Mucus Few (Few) Urine Yeast Moderate H (None Seen) per hpf Urine Osmolality (300-1090) mOsm/kg Urine Sodium mEq/L Stool Occult Blood (Negative) Exam - Constitutional Vitals: Temp Pulse Resp BP Pulse Ox 99.0 F 95 22 167/101 98 07/01/16 11:07 07/01/16 11:07 07/01/16 11:07 07/01/16 11:07 07/01/16 11:07 General appearance: cooperative, morbidly obese, no acute distress - Head Head exam: Present: atraumatic, normal inspection, normocephalic - Eye Eye exam: Present: EOMI, normal appearance, PERRL Pupils: Present: normal accommodation - ENT ENT exam: Present: mucous membranes moist - Neck Neck exam: Present: normal inspection - Respiratory Respiratory exam: Present: wheezes (Fine inspiratory/expiratory wheezes throughout). Absent: rales, respiratory distress, rhonchi Additional comments: On BIPAP. - Cardiovascular Cardiovascular exam: Present: irregular rhythm. Absent: tachycardia - GI/Abdominal GI/Abdominal exam: Present: distended (obese), normal bowel sounds, soft. Absent: tenderness Additional comments: Grajeda catheter noted to be draining clear yellow urine. - Extremities Exam Extremities exam: Present: normal inspection, pedal edema (1+ LLE.). Absent: joint swelling, tenderness Additional comments: LUE edema and warmth improved. RLE AKA stump without erythema, warmth, or edema. - Neurological Exam Neurological exam: Present: alert, oriented X3, no focal deficits - Psychiatric Psychiatric exam: Present: normal affect, normal mood - Skin Skin exam: Present: dry, intact, normal color, warm Consult Discharge Plan - Plan Referrals: Joanna Chacko MD [Primary Care Provider] - (PT IS FROM [facility], NO PCP APPOINTMENT NEEDED)
--- NOTE | 2016-07-01 18:55 | Internal Med Progress Note ---
Date of Encounter: 07/01/16 Time of Encounter: 10:00 - Assessment and plan (1) Acute on chronic renal failure Current Visit: Yes Status: Acute Assessment and plan: Nonoliguric JONELLE on CKD stage III. renal function improved from previous day with good urine output will continue to avoid nephrotoxic agents continue to monitor renal profile Hyperkalemia noted: will give one time dose of Kayxelate Presently with ESBL UTI, acute respiratory failure Renal US: no hydronephrosis/abscess or abnormality reported Urine culture with Proteus Mirabilis ESBL, E. Coli ESBL Continue to monitor I/O REnal function at baseline good urine output noted Nephrology consultation appreciated. Still hyperkalemia, give another dose of kayexalate. (2) Anemia Current Visit: Yes Status: Acute Assessment and plan: Of unclear etiology s/p 2 unit PRBC transfusion(06/27/16) Will obtain stool occult positive but pt is on coumadin, possibly there is some bleeding previously. H&H post transfusion stable. no active bleeding noted at this time will continue to closely monitor Qualifiers: Anemia type: unspecified type Qualified Code(s): D64.9 - Anemia, unspecified (3) COPD with acute exacerbation Current Visit: Yes Status: Acute Assessment and plan: Continue duonebs, current regimen monitor O2 saturation (goal O2 sat: 89-92%) out of bed to chair with assistance Continue antibiotic treatment. (4) Sepsis Current Visit: Yes Status: Acute Assessment and plan: Secondary to ESBL UTI and Proteus mirabilis Afebrile since admission Leukocytosis persists but improved from previous day. Clinically patient is improving with good urine output and vitals within acceptable range Will continue Merem 1gm IV q8h at this time grajeda catheter changed (06/26/16) f/u repeat Urine cultures ID consultation appreciated Qualifiers: Sepsis type: sepsis due to unspecified organism Qualified Code(s): A41.9 - Sepsis, unspecified organism (5) Atrial fibrillation Current Visit: Yes Status: Chronic Assessment and plan: HR controlled, Continue patient's home meds INR within therapeutic range continue Coumadin goal INR:2-3 Qualifiers: Atrial fibrillation type: chronic Qualified Code(s): I48.2 - Chronic atrial fibrillation (6) CAD (coronary artery disease) Current Visit: Yes Status: Chronic Assessment and plan: Chronic stable Qualifiers: Coronary Disease-Associated Artery/Lesion type: [place] artery [place] vs. transplanted heart: [place] heart Associated angina: without angina Qualified Code(s): I25.10 - Atherosclerotic heart disease of [place] coronary artery without angina pectoris (7) Chronic indwelling Grajeda catheter Current Visit: Yes Status: Chronic Assessment and plan: From [facility] changed grajeda cath 06/26/16 (8) DM2 (diabetes mellitus, type 2) Current Visit: Yes Status: Chronic Assessment and plan: Hyperglycemia persists Required 22units correctional insulin coverage in the last 24hours. continue Levemir to 50units qHS and Humalog to 20units TIDAC continue to monitor fingerstick and blood glucose continue sliding scale correctional insulin coverage as needed Qualifiers: Diabetes mellitus complication status: with circulatory complication Diabetes mellitus complication detail: with other circulatory complications Diabetes mellitus senior care insulin use: with senior care use Qualified Code(s) : E11.59 - Type 2 diabetes mellitus with other circulatory complications; Z79.4 - [facility] (current) use of insulin (9) History of CHF (congestive heart failure) Current Visit: Yes Status: Chronic Assessment and plan: Chronic. We will repeat echo (10) History of hyperlipidemia Current Visit: Yes Status: Chronic Assessment and plan: Continue home medication (11) Morbid obesity Current Visit: Yes Status: Chronic Qualifiers: Obesity type: with alveolar hypoventilation Qualified Code(s): 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 (12) PAD (peripheral artery disease) Current Visit: Yes Status: Chronic (13) DVT prophylaxis Current Visit: No Status: Acute Assessment and plan: Patient is on Coumadin (14) Hypertension Current Visit: Yes Status: Acute Assessment and plan: Noted to be hypertensive this morning Increased Carvedilol to 25mg PO q12h continue to monitor HR and BP Repeat BP within acceptable limits Qualifiers: Hypertension type: essential hypertension Qualified Code(s): I10 - Essential (primary) hypertension (15) Chronic respiratory failure Current Visit: Yes Status: Chronic Assessment and plan: patient chronically on home oxygen and bipap support goal O2: 89-92% Bipap at bedtime continue to monitor Qualifiers: Respiratory failure complication: hypoxia and hypercapnia Qualified Code(s) : J96.11 - Chronic respiratory failure with hypoxia; J96.12 - Chronic respiratory failure with hypercapnia - Time Spent With Patient 25 - 35 minutes - Subjective Interval history: Patient is a 71-year-old male admitted from [facility] for shortness of breath and desaturation. His past medical history is significant for UTI, A. fib, CHF, COPD, CAD, diabetes, CKD Patient was seen and examined. He still need high-level oxygen to maintain oxygen saturation. He is on BiPAP even during daytime. In mild acute respiratory distress. Vitals are stable. We will try to taper down oxygen level and continue meropenem treatment for ESBL UTI. - Constitutional Vitals: Temp Pulse Resp BP Pulse Ox 99.0 F 83 18 140/77 96 07/01/16 11:07 07/01/16 15:43 07/01/16 15:43 07/01/16 15:43 07/01/16 15:43 General appearance: Present: mild distress, A&O X 3, morbidly obese, pleasant, answers questions appropriately - Head Head exam: Present: atraumatic, normocephalic - Eye Eye exam: Present: PERRL, conjuntiva pink, sclera anicteric Pupils: Present: PERRL - Neck Neck exam general surgery: Present: supple, trachea midline. Absent: lymphadenopathy - Respiratory Respiratory exam: Present: CTAB, rhonchi (Diffuse rhonchi bilaterally). Absent : accessory muscle use, rales, wheezes - Cardiovascular Cardiovascular exam: Present: irregular rhythm, +S1, +S2. Absent: diastolic murmur, gallop, rubs, systolic murmur - GI/Abdominal GI/Abdominal exam: Present: normal bowel sounds, soft, no peritoneal signs. Absent: distended, tenderness - Extremities Exam Extremities exam: Present: warm, radial pulses palpable and symetrical. Absent : calf tenderness, cyanotic, pedal edema - Neurological Exam Neurological exam: Present: CN II-XII intact, oriented X3, no focal deficits. Absent: pronater drift, facial droop, speech deficit - Skin Skin exam: Present: dry, intact Internal Medicine: Result - Labs CBC & Chem 7: 07/01/16 09:05 07/01/16 09:05 Labs: Short CBC 07/01/16 Range/Units 09:05 WBC 12.9 H (4.3-11.1) K/mcL Hgb 9.6 L (12.9-16.9) g/dL Hct 32.3 L (37.5-50.1) % Plt Count 288 (140-400) K/mcL Neutrophils # 10.4 H (1.6-8.9) K/mcL BMP 07/01/16 09:05 Sodium 140 Potassium 5.5 H Chloride 101 Carbon Dioxide 31 H BUN 48 H Creatinine 1.29 H Glucose 117 H Calcium 9.6 - ABG Interpretation ABG results: ABG ABG pH 7.40 pH Units (7.32-7.45) 07/01/16 05:49 ABG pCO2 59 mmHg (35-45) H 07/01/16 05:49 ABG pO2 91 mmHg (85-104) 07/01/16 05:49 ABG O2 Saturation 97 % (95-98) 07/01/16 05:49 PT/INR, D-dimer PT 29.3 Seconds (9.4-12.1) H 07/01/16 06:29 Consult Discharge Plan - Plan Referrals: Joanna Chacko MD [Primary Care Provider] - ([facility] IS FROM [facility], NO PCP APPOINTMENT NEEDED)
[2016-07-01] MEDS: *HR* Warfarin 3 MG TABLET PO SCH (19:09)
[2016-07-01] MEDS: Ertapenem 1,000 MG in 0.9 % Sodium Chloride Mini Bag 100 ML IVPB SCH (21:36)
[2016-07-01] MEDS: Insulin DETEMIR 100 UNIT/ML X5UNITS SQ SCH (21:36)
[2016-07-02] MEDS: Ipratropium/Albuterol Neb 3 ML IH SCH ×4 (03:36→23:15)
[2016-07-02 05:23] LABS: Basophils % 0.4 %; Immature Granulocytes % 1.8 % (0-4); Nucleated Red Blood Cells 0.2 /100 WBC (0)
[2016-07-02 05:24] LABS: Eosinophils # 0.3 K/mcL (0.0-0.6); Eosinophils % 3.2 %; Hematocrit 28.7 % (37.5-50.1); Hemoglobin 8.6 g/dL (12.9-16.9); Lymphocytes # 1.2 K/mcL (0.6-4.6); Mean Corpuscular Hemoglobin 26.4 pg (28.0-33.3); Mean Platelet Volume 9.6 fL (9.4-12.4); Monocytes # 0.5 K/mcL (0.0-1.3); Monocytes % 5.1 %; Platelet Count 269 K/mcL (140-400); Red Blood Count 3.26 M/mcL (4.19-5.50); Red Cell Distribution Width 15.3 % (11.5-14.5); Segmented Neutrophils % 77.5 %
[2016-07-02 05:39] LABS: INR 2.7; Prothrombin Time 29.7 Seconds (9.4-12.1)
[2016-07-02 05:43] LABS: BUN/Creatinine Ratio 37 (6-26); Blood Urea Nitrogen 46 mg/dL (8-26); Carbon Dioxide 30 mEq/L (19-29); Chloride 100 mEq/L (98-109); Glucose 96 mg/dL (70-99); Osmolality,Calculated 300 (280-300); Potassium 5.3 mEq/L (3.5-4.5); Sodium 139 mEq/L (136-145); eGFR For African Americans > 60 (> 60); eGFR For Non-African Americans 58 (> 60)
[2016-07-02 06:05] LABS: Platelet Estimate Normal (Normal); Polychromasia 1+ (Not Present); Reactive Lymphocytes Present (Not Present)
[2016-07-02] MEDS: Insulin LISPRO 300 UNITS/3 ML VIAL SQ SCH ×7 (09:39→21:23)
[2016-07-02] MEDS: Diltiazem CD (24hr) 180 MG CAPSULE PO SCH (09:42)
[2016-07-02] MEDS: Isosorbide MONOnitrate (24 HR) 60 MG TAB.ER.24H PO SCH (09:42)
[2016-07-02] MEDS: Sennosides/Docusate Sodium TABLET PO SCH ×2 (09:42→21:21)
[2016-07-02] MEDS: tiZANidine 4 MG TABLET PO SCH ×4 (09:42→21:20)
[2016-07-02] MEDS: Magnesium Oxide 400 MG TABLET PO SCH ×2 (09:43→21:20)
[2016-07-02] MEDS: Gabapentin 300 MG CAPSULE PO SCH ×3 (09:43→21:20)
--- NOTE | 2016-07-02 11:24 | Infectious Disease Progress No ---
Date of Encounter: 07/02/16 Time of Encounter: 11:22 - Assessment and Plan (1) Sepsis Current Visit: Yes Status: Acute The patient had two SIRS criteria plus JONELLE and acute encephalopathy. Likely secondary to UTI. Improved. WBC normal. The patient has been afebrile. His acute encephalopathy and JONELLE have resolved. Blood cultures drawn 06/19 x 2 sets and 06/20 x 2 sets are negative 4/ sets. Qualifiers: Sepsis type: sepsis due to unspecified organism Qualified Code(s): A41.9 - Sepsis, unspecified organism (2) UTI (urinary tract infection) Current Visit: No Status: Acute Causative organism E. coli ESBL and Proteus mirabilis. Likely secondary to chronic indwelling grajeda catheter. Grajeda catheter changed 06/25/16. Replaced again 06/26/16 due to catheter obstruction. Repeat urine culture is negative. Clinically, the patient appears to be improving. Continue Meropenem 1 gram IV Q8H (day 6). Monitor renal function closely and dose-adjust antibiotics. Duration of treatment depends on the clinical picture, but likely 10-14 days. Treat through 07/11/15. Get weekly CBC and BMP while on antibiotics. Weekly powerglide care per protocol. Qualifiers: Urinary tract infection type: site unspecified Hematuria presence: without hematuria Qualified Code(s): N39.0 - Urinary tract infection, site not specified (3) Candiduria Current Visit: Yes Status: Acute Yeast noted on initial urinalysis. Repeat urinalysis showed no yeast. No indication to treat as the patient does not appear to have disseminated yeast infection and no plans for urinary tract manipulation. (4) Acute encephalopathy Current Visit: Yes Status: Resolved Likely multifactorial: sepsis + UTI + hypercapnia. Improved. (5) Acute kidney injury Current Visit: Yes Status: Resolved Nonoliguric. Serum creatinine >3 on arrival. Improved. Back at baseline. Nephrology consulted and has signed off. Continue nephro-protective strategy as outlined by the Nephrology team. Dose-adjust antibiotics based on creatinine clearance. (6) Acute and chronic respiratory failure with hypercapnia Current Visit: No Status: Acute Appears improved. Still requires BIPAP through the night. Management per the primary team. (7) Hyperkalemia Current Visit: Yes Status: Acute Improved. Serum potassium 5.3 today. Management per the primary team. (8) Left arm swelling Current Visit: Yes Status: Resolved Etiology unclear, but improved. No evidence of erythema or warmth to indicate an infectious process. The patient did have an IV to the NBA arm, but no evidence of infiltration noted. X-rays negative. Management per the primary team. (9) Chronic indwelling Grajeda catheter Current Visit: Yes Status: Chronic Secondary to BPH. Grajeda changed per the nursing staff 06/26/16. (10) Atrial fibrillation Current Visit: Yes Status: Chronic Qualifiers: Atrial fibrillation type: chronic Qualified Code(s): I48.2 - Chronic atrial fibrillation (11) CAD (coronary artery disease) Current Visit: Yes Status: Chronic Qualifiers: Coronary Disease-Associated Artery/Lesion type: minto artery [place] vs. transplanted heart: minto heart Associated angina: without angina Qualified Code(s): I25.10 - Atherosclerotic heart disease of minto coronary artery without angina pectoris (12) DM2 (diabetes mellitus, type 2) Current Visit: Yes Status: Chronic Qualifiers: Diabetes mellitus complication status: with circulatory complication Diabetes mellitus complication detail: with other circulatory complications Diabetes mellitus terminal system operator insulin use: with half-way use Qualified Code(s) : E11.59 - Type 2 diabetes mellitus with other circulatory complications; Z79.4 - senior living (current) use of insulin (13) Morbid obesity Current Visit: Yes Status: Chronic Qualifiers: Obesity type: with alveolar hypoventilation Qualified Code(s): 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 (14) PAD (peripheral artery disease) Current Visit: Yes Status: Chronic - Subjective Interval history: Patient seen and examined. No acute events noted overnight. Denies fevers or chills or rigors. Denies chest pain, shortness of breath, or cough. Denies nausea, vomiting, or diarrhea. Denies abdominal pain. Grajeda catheter remains in place. States penile pain has resolved. Denies oral thrush. States LUE pain resolved. Infect Dis PN-Objective Data - Labs CBC & Chem 7: 07/02/16 04:40 07/02/16 04:40 Labs: Laboratory Results - last 24 hr 06/30/16 07/01/16 07/01/16 12:42 07:10 11:04 WBC RBC Hgb Hct MCV MCH MCHC RDW Plt Count MPV Immature Gran % Seg Neutrophils % Lymphocytes % Monocytes % Eosinophils % Basophils % Neutrophils # Lymphocytes # Monocytes # Eosinophils # Basophils # Nucleated RBCs/100 WBC Reactive Lymphocytes Platelet Estimate Polychromasia PT INR Sodium Potassium Chloride Carbon Dioxide BUN Creatinine Est GFR ( Amer) Est GFR (Non-Af Amer) BUN/Creatinine Ratio Glucose POC Glucose 114 H 146 H Calculated Osmolality Calcium B-Natriuretic Peptide Procalcitonin 0.18 H 07/01/16 07/02/16 07/02/16 15:36 04:40 04:40 WBC RBC Hgb Hct MCV MCH MCHC RDW Plt Count MPV Immature Gran % Seg Neutrophils % Lymphocytes % Monocytes % Eosinophils % Basophils % Neutrophils # Lymphocytes # Monocytes # Eosinophils # Basophils # Nucleated RBCs/100 WBC Reactive Lymphocytes Platelet Estimate Polychromasia PT 29.7 H INR 2.7 Sodium Potassium Chloride Carbon Dioxide BUN Creatinine Est GFR ( Amer) Est GFR (Non-Af Amer) BUN/Creatinine Ratio Glucose POC Glucose 197 H Calculated Osmolality Calcium B-Natriuretic Peptide 201 H Procalcitonin 07/02/16 07/02/16 07/02/16 04:40 04:40 07:17 WBC 10.3 RBC 3.26 L Hgb 8.6 L Hct 28.7 L MCV 88.0 MCH 26.4 L MCHC 30.0 L RDW 15.3 H Plt Count 269 MPV 9.6 Immature Gran % 1.8 Seg Neutrophils % 77.5 Lymphocytes % 12.0 Monocytes % 5.1 Eosinophils % 3.2 Basophils % 0.4 Neutrophils # 8.0 Lymphocytes # 1.2 Monocytes # 0.5 Eosinophils # 0.3 Basophils # 0.0 Nucleated RBCs/100 WBC 0.2 H Reactive Lymphocytes Present A Platelet Estimate Normal Polychromasia 1+ A PT INR Sodium 139 Potassium 5.3 H Chloride 100 Carbon Dioxide 30 H BUN 46 H Creatinine 1.23 Est GFR ( Amer) > 60 Est GFR (Non-Af Amer) 58 L BUN/Creatinine Ratio 37 H Glucose 96 POC Glucose 101 H Calculated Osmolality 300 Calcium 9.0 B-Natriuretic Peptide Procalcitonin Cultures: Cultures 06/25/16 10:21 Urine Culture - Final Urine,Catheterized No growth. 06/20/16 22:06 Blood Culture - Final Peripheral Venipuncture No growth. 06/20/16 22:06 Blood Culture - Final Peripheral Venipuncture No growth. 06/23/16 02:49 Urine Culture - Final Urine,Catheterized No pathogens isolated. Serology 06/30/16 06/27/16 06/26/16 Range/Units 18:30 11:15 12:30 Urine Color Yellow (Yellow) Urine Clarity Turbid A (Clear) Urine pH 5.5 (5.0-8.0) pH Units Ur Specific [place] 1.016 (1.010-1.025) Urine Protein >=300 H (Neg-Trace) mg/dL Urine Glucose (UA) Normal (Normal) mg/dL Urine Ketones Negative (Negative) mg/dL Urine Blood Large H (Negative) Urine Nitrite Negative (Negative) Urine Bilirubin Negative (Negative) Urine Urobilinogen Normal (Normal) mg/dL Ur Leukocyte Esterase Small H (Negative) Urine Microscopic RBC 5-15 H (0-3) per hpf Urine Microscopic WBC 50-100 H (0-3) per hpf Ur Squamous Epith Cells Moderate H (None-Few) per lpf Amorphous Sediment (Few) Urine Bacteria Few (None-Few) per hpf Hyaline Casts None Seen (None-Few) per lpf Urine Mucus (Few) Urine Yeast Test Not Performed (None Seen) per hpf Urine Osmolality 314 (300-1090) mOsm/kg Urine Sodium 49.0 mEq/L Stool Occult Blood Positive A (Negative) 06/23/16 Range/Units 02:49 Urine Color Yellow (Yellow) Urine Clarity Cloudy A (Clear) Urine pH 5.0 (5.0-8.0) pH Units Ur Specific [place] 1.015 (1.010-1.025) Urine Protein 30 H (Neg-Trace) mg/dL Urine Glucose (UA) Normal (Normal) mg/dL Urine Ketones Negative (Negative) mg/dL Urine Blood Moderate H (Negative) Urine Nitrite Negative (Negative) Urine Bilirubin Negative (Negative) Urine Urobilinogen Normal (Normal) mg/dL Ur Leukocyte Esterase Large H (Negative) Urine Microscopic RBC 15-30 H (0-3) per hpf Urine Microscopic WBC TNTC H (0-3) per hpf Ur Squamous Epith Cells Few (None-Few) per lpf Amorphous Sediment Few (Few) Urine Bacteria Few (None-Few) per hpf Hyaline Casts None Seen (None-Few) per lpf Urine Mucus Few (Few) Urine Yeast Moderate H (None Seen) per hpf Urine Osmolality (300-1090) mOsm/kg Urine Sodium mEq/L Stool Occult Blood (Negative) Exam - Constitutional Vitals: Temp Pulse Resp BP Pulse Ox 98.6 F 75 20 193/105 95 07/02/16 07:10 07/02/16 07:10 07/02/16 07:10 07/02/16 07:10 07/02/16 07:10 General appearance: cooperative, morbidly obese, no acute distress - Head Head exam: Present: atraumatic, normal inspection, normocephalic - Eye Eye exam: Present: EOMI, normal appearance, PERRL Pupils: Present: normal accommodation - ENT ENT exam: Present: mucous membranes moist - Neck Neck exam: Present: normal inspection - Respiratory Respiratory exam: Present: CTAB. Absent: rales, respiratory distress, rhonchi, wheezes - Cardiovascular Cardiovascular exam: Present: irregular rhythm. Absent: tachycardia - GI/Abdominal GI/Abdominal exam: Present: distended (obese), normal bowel sounds, soft. Absent: tenderness Additional comments: Grajeda catheter noted to be draining yellow urine. - Extremities Exam Extremities exam: Present: normal inspection. Absent: joint swelling, pedal edema, tenderness Additional comments: Right AKA stump without erythema, edema, or wounds. - Neurological Exam Neurological exam: Present: alert, oriented X3, no focal deficits - Psychiatric Psychiatric exam: Present: normal affect, normal mood - Skin Skin exam: Present: dry, intact, normal color, warm Consult Discharge Plan - Plan Referrals: Joanna Chacko MD [Primary Care Provider] - (PT IS FROM [facility], NO PCP APPOINTMENT NEEDED)
--- NOTE | 2016-07-02 12:18 | Gastroenterology Consult Note ---
<Sj Roper - Last Filed: 07/02/16 12:15> Date of Encounter: 07/02/16 Time of Encounter: 10:30 - Assessment and plan (1) Anemia Current Visit: Yes Status: Acute Assessment and plan: Hgb 10.5 on admission which dropped to 7.7 on 06/27. FOBT positive on 06/30. Hgb 8.6 this morning. Recommended EGD and colonoscopy, but the patient refused procedures. I reviewed risks and benefits with patient and he continued to refuse procedures. Patient states that he "wants to go back to [facility]". If patient changes his mind, we will plan for EGD and colonoscopy on Thursday with prep on . Would need to stop anticoagulation prior to scopes. Qualifiers: Anemia type: unspecified type Qualified Code(s): D64.9 - Anemia, unspecified (2) Acute on chronic renal failure Current Visit: Yes Status: Acute Assessment and plan: Management per primary team. (3) COPD with acute exacerbation Current Visit: Yes Status: Acute Assessment and plan: Management per primary team. (4) Sepsis Current Visit: Yes Status: Acute Assessment and plan: Management per infectious disease. Qualifiers: Sepsis type: sepsis due to unspecified organism Qualified Code(s): A41.9 - Sepsis, unspecified organism - Time Spent With Patient Total time spent is greater than 50% in coordination of care (as documented) at patient's floor/unit and/or counseling patient: GI History of Present Illness - Data of Consult Patient: new to practice Consult date: 07/02/16 Requesting Physician: Leta Shelton MD - Consult Narrative Reason for consult: anemia History of present illness: Mr. Sandoval is a 71 year old male with PMHx of Afib, CHF, COPD, CAD, DM, GERD, HLD, HTN [place], PAD, CKD who presented with altered mental status and was transferred from [facility] to [place] ED. He was found to have leukocytosis, UTI, JONELLE and was admitted for treatment. He was transferred here from [place] due to acute exacerbation of COPD. He was septic secondary to ESBL UTI and Proteus mirabilis. Nephrology and Infectious Disease were consulted due to JONELLE/CKD and sepsis. We have been consulted to evaluate his anemia. On admission here, Hgb 10.5 and dropped to 7.7 on 06/27 and he received 2 units PRBC. Hgb came up to 10 on 06/30, but today Hgb 8.6. FOBT was positive on 06/30. The patient is on Coumadin due to Afib with INR 2.7. 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) - Social History Smoking Status: Former smoker Smokeless Tobacco Status: No Alcohol use: none Drug use: none - Family History Mother Adopted: No Family Member Ethnicity: Non- Living Status: Hx Family Cardiac Disorders: No Hx Family Respiratory Disorders: No Hx Family Cancer: Yes Hx Family GI Disorders: No Hx Family Endocrine Disorder: No Hx Family Neuromuscular Disorders: No Hx Family Neurologic Disorders: No Hx Family HEENT Disorders: No Hx Family Autoimmune Disorders: No - Gastrointestinal Gastrointestinal: Present: as per HPI - Constitutional Constitutional: as per HPI - EENT Eyes: as per HPI Ears: Present: as per HPI Nose, mouth and throat: Present: as per HPI - Cardiovascular Cardiovascular ROS: Present: as per HPI - Respiratory Respiratory IM: Present: as per HPI - Genitourinary Genitourinary: Absent: change in color, Urinary frequency - Neurological ROS Neurological GI: Present: as per HPI - Hematologic/Lymphatic Hematologic/Lymphatic pediatric: Present: as per HPI - Musculoskeletal Musculoskeletal ROS GI: Present: as per HPI - Integumentary Integumentary GI: Present: as per HPI - Psychiatric ROS Psychiatric GI: Present: as per HPI - Endocrine Endocrine IM: Present: as per HPI - Constitutional Vitals: Temp Pulse Resp BP Pulse Ox 98.6 F 75 20 193/105 95 07/02/16 07:10 07/02/16 07:10 07/02/16 07:10 07/02/16 07:10 07/02/16 07:10 General appearance: Present: cooperative, mild distress, A&O X 3, answers questions appropriately - Head Head exam: Present: atraumatic, normocephalic - Eye Eye exam: Present: normal appearance, sclera anicteric - ENT ENT exam: Present: mucous membranes moist - Neck Neck exam general surgery: Present: normal inspection, trachea midline - Respiratory Respiratory exam: Present: CTAB (diminished) Additional comments: On BiPAP - Cardiovascular Cardiovascular exam: Present: RRR, +S1, +S2 - GI/Abdominal GI/Abdominal exam: Present: normal bowel sounds, soft, no peritoneal signs. Absent: distended, firm, guarding, tenderness Additional comments: Obese - Rectal Rectal exam: Present: deferred - Extremities Exam Extremities exam: Present: warm - Neurological Exam Neurological exam: Present: no focal deficits - Psychiatric Psychiatric exam: Present: normal affect, normal mood - Skin Skin exam: Present: dry, intact, normal color, warm Results - Labs CBC & Chem 7: 07/02/16 04:40 07/02/16 04:40 Labs: Last Result Calcium 9.0 mg/dL (8.6-10.8) 07/02/16 04:40 Troponin I 0.04 ng/mL (0-0.03) H* 06/21/16 13:22 C-Reactive Protein 170 mg/L (Less than 5) H 06/30/16 08:48 Stool Occult Blood Positive (Negative) A 06/30/16 18:30 Entire Visit Hgb 8.6 g/dL (12.9-16.9) L 07/02/16 04:40 Hct 28.7 % (37.5-50.1) L 07/02/16 04:40 PT 29.7 Seconds (9.4-12.1) H 07/02/16 04:40 Total Bilirubin 0.4 mg/dL (0.2-1.2) 06/30/16 08:48 AST 28 Units/L (5-34) 06/30/16 08:48 ALT 48 Units/L (0-55) 06/30/16 08:48 Amylase 37 Units/L (25-125) 06/30/16 08:48 Lipase 19 Units/L (8-78) 06/30/16 08:48 - ABG ABG results: ABG ABG pH 7.40 pH Units (7.32-7.45) 07/01/16 05:49 ABG pCO2 59 mmHg (35-45) H 07/01/16 05:49 ABG pO2 91 mmHg (85-104) 07/01/16 05:49 ABG O2 Saturation 97 % (95-98) 07/01/16 05:49 PT/INR, D-dimer PT 29.7 Seconds (9.4-12.1) H 07/02/16 04:40 Consult Discharge Plan - Plan Referrals: Joanna Chacko MD [Primary Care Provider] - (PT IS FROM [facility], NO PCP APPOINTMENT NEEDED) <Agatha Cotter - Last Filed: 07/02/16 15:56> Time of Encounter: 14:00 - Time Spent With Patient Total time spent is greater than 50% in coordination of care (as documented) at patient's floor/unit and/or counseling patient: GI History of Present Illness - Data of Consult Requesting Physician: Leta Shelton MD - Consult Narrative History of present illness: Mr. Sandoval is a 71 year old male - Constitutional Vitals: Temp Pulse Resp BP Pulse Ox 100.2 F H 66 20 114/62 95 07/02/16 15:13 07/02/16 15:13 07/02/16 15:13 07/02/16 15:13 07/02/16 15:13 Results - Labs CBC & Chem 7: 07/02/16 04:40 07/02/16 04:40 Labs: Last Result Calcium 9.0 mg/dL (8.6-10.8) 07/02/16 04:40 Troponin I 0.04 ng/mL (0-0.03) H* 06/21/16 13:22 C-Reactive Protein 170 mg/L (Less than 5) H 06/30/16 08:48 Stool Occult Blood Positive (Negative) A 06/30/16 18:30 Entire Visit Hgb 8.6 g/dL (12.9-16.9) L 07/02/16 04:40 Hct 28.7 % (37.5-50.1) L 07/02/16 04:40 PT 29.7 Seconds (9.4-12.1) H 07/02/16 04:40 Total Bilirubin 0.4 mg/dL (0.2-1.2) 06/30/16 08:48 AST 28 Units/L (5-34) 06/30/16 08:48 ALT 48 Units/L (0-55) 06/30/16 08:48 Amylase 37 Units/L (25-125) 06/30/16 08:48 Lipase 19 Units/L (8-78) 06/30/16 08:48 - ABG ABG results: ABG ABG pH 7.40 pH Units (7.32-7.45) 07/01/16 05:49 ABG pCO2 59 mmHg (35-45) H 07/01/16 05:49 ABG pO2 91 mmHg (85-104) 07/01/16 05:49 ABG O2 Saturation 97 % (95-98) 07/01/16 05:49 PT/INR, D-dimer PT 29.7 Seconds (9.4-12.1) H 07/02/16 04:40 - Attending Attestation I examined this patient and my medical decision-making was reviewed with the RN BSN/PA/Advanced Practice Nurse/Resident Physician. I agree with the documented findings, disposition and treatment plan as described except to the extent set forth below.
[2016-07-02] MEDS ORDERED: Perflutren Lipid Microsphere 1.3 ML in 0.9 % Sodium Chloride 8.7 ML IVP ONE (14:58)
--- NOTE | 2016-07-02 16:54 | ECHO - Doppler Report ---
Echo with Imaging Enhancement Agent Name: Dawn Sandoval Date of Study: 07/02/2016 Date: 1945 Ht: 74.0 in Medical Record#: [id number] Age: 71 Wt: 352.0 lb Gender: Male BSA: 2.76 Order #: [id number] Location: [facility] Room #: [id number] Reading Physician: Patti Burgess DO Blindstitch Machine Operator: Charlene Gomez Ordering Physician: Leta Shelton MD Primary Physician: Joanna Chacko MD Indications: Congestive heart failure Impressions: Technically challenging study -- patient supine on ventilator. Grossly, LV systolic function appears low normal but could not be well quantified even with use of Definity. RV appears normal in function on subcostal imaging. Not all valves were well evaluated. Recommend repeat study with clinical status improves. Findings: Study Quality * Technically sub-optimal due to clinical status (patient supine on ventilator) and body habitus. Apical view not well visualized. ECG Findings * Atrial fibrillation. Left Ventricle * Indeterminate diastolic function. * Definity echo contrast was used. * Visually, LVEF appears low normal. Aortic Valve * No aortic regurgitation. * Aortic valve not well visualized. * Suboptimal Doppler evaluation. Mitral Valve * No mitral regurgitation. * Mitral valve not well visualized. * Suboptimal Doppler. Tricuspid Valve * Tricuspid valve not well visualized. * No tricuspid regurgitation. Pulmonic Valve * Pulmonic valve is not well visualized. * No pulmonic stenosis. * No pulmonic regurgitation. Pulmonary Artery * Pulmonary artery not well visualized. Left Atrium * Left atrium is not well visualized. Right Atrium * Right atrium is not well visualized. Pericardium * There is no pericardial effusion present. Aorta * Not well visualized. Interatrial Septum * No evidence of PFO by color Doppler. IVC * The IVC is not well evaluated. Right Ventricle * RV appears normal in function on subcostal imaging. History Hypertension Diabetes History of CAD/PTCA Myocardial Infarction Congestive Heart Failure 04/29/2014 a Previous Echo was performed. Contrast: Definity 1.3 ml in 8.7 ml of saline 2 ml. Measurements: BP: 193/ 105 2D Normal Values LVIDd: 5.15 cm 3.7 - 5.6 cm LVIDs: 3.00 cm 1.5 - 3.6 cm AO: 3.30 cm < 4.0 cm LA: 4.30 cm 2.0 - 4.0cm %FS: 42.30 cm >25 % LA volume: 125 Mitral Valve Peak E:.79 m/sec Peak E' Lat Johnson:9.16 cm/s Peak E' Med Johnson:5.85 cm/s E/E' Lat Ratio:8.6 E/E' Med Ratio:13.5 Tricuspid Valve TV Regurg Peak Grad: 9.00mmHg TV Regurg Peak Johnson: 1.51m/sec Updated by Patti Burgess on 07/02/2016 4:48:35 PM electronically signed on 07/02/2016 4:50:42 PM with status of Final Wall Motion Kirk: 1=Normal, 2=Hypokinesis, 3=Akinesis, 4=Dyskinesis, 5=Aneurysmal, 6=Hyperkinetic, X=Not Visualized (Blank)=Missing
--- NOTE | 2016-07-02 17:45 | Internal Med Progress Note ---
Date of Encounter: 07/02/16 Time of Encounter: 12:00 - Assessment and plan (1) Acute on chronic renal failure Current Visit: Yes Status: Acute Assessment and plan: Nonoliguric JONELLE on CKD stage III. renal function improved from previous day with good urine output will continue to avoid nephrotoxic agents continue to monitor renal profile Hyperkalemia noted: will give one time dose of Kayxelate Presently with ESBL UTI, acute respiratory failure Renal US: no hydronephrosis/abscess or abnormality reported Urine culture with Proteus Mirabilis ESBL, E. Coli ESBL Continue to monitor I/O REnal function at baseline good urine output noted Nephrology consultation appreciated. Improvement with renal function. (2) Anemia Current Visit: Yes Status: Acute Assessment and plan: Of unclear etiology s/p 2 unit PRBC transfusion(06/27/16) Will obtain stool occult positive but pt is on coumadin, possibly there is some bleeding previously. Guaiac positive. Hemoglobin dropped again. GI consult called but patient refused scopes. Hold Coumadin now, closely monitor H&H Qualifiers: Anemia type: unspecified type Qualified Code(s): D64.9 - Anemia, unspecified (3) COPD with acute exacerbation Current Visit: Yes Status: Acute Assessment and plan: Continue duonebs, current regimen monitor O2 saturation (goal O2 sat: 89-92%) out of bed to chair with assistance Continue antibiotic treatment. (4) Sepsis Current Visit: Yes Status: Acute Assessment and plan: Secondary to ESBL UTI and Proteus mirabilis Afebrile since admission Leukocytosis persists but improved from previous day. Clinically patient is improving with good urine output and vitals within acceptable range Will continue Merem 1gm IV q8h at this time grajeda catheter changed (06/26/16) f/u repeat Urine cultures ID consultation appreciated Qualifiers: Sepsis type: sepsis due to unspecified organism Qualified Code(s): A41.9 - Sepsis, unspecified organism (5) Atrial fibrillation Current Visit: Yes Status: Chronic Assessment and plan: HR controlled, Continue patient's home meds Coumadin is on hold because of GI bleeding. Qualifiers: Atrial fibrillation type: chronic Qualified Code(s): I48.2 - Chronic atrial fibrillation (6) CAD (coronary artery disease) Current Visit: Yes Status: Chronic Assessment and plan: Chronic stable Qualifiers: Coronary Disease-Associated Artery/Lesion type: [place] artery [place] vs. transplanted heart: [place] heart Associated angina: without angina Qualified Code(s): I25.10 - Atherosclerotic heart disease of [place] coronary artery without angina pectoris (7) Chronic indwelling Grajeda catheter Current Visit: Yes Status: Chronic Assessment and plan: From [facility] changed grajeda cath 06/26/16 (8) DM2 (diabetes mellitus, type 2) Current Visit: Yes Status: Chronic Assessment and plan: Hyperglycemia persists Required 22units correctional insulin coverage in the last 24hours. continue Levemir to 50units qHS and Humalog to 20units TIDAC continue to monitor fingerstick and blood glucose continue sliding scale correctional insulin coverage as needed Qualifiers: Diabetes mellitus complication status: with circulatory complication Diabetes mellitus complication detail: with other circulatory complications Diabetes mellitus half-way insulin use: with assistant terminal manager use Qualified Code(s) : E11.59 - Type 2 diabetes mellitus with other circulatory complications; Z79.4 - alf (current) use of insulin (9) History of CHF (congestive heart failure) Current Visit: Yes Status: Chronic Assessment and plan: Chronic. No signs of exacerbation (10) History of hyperlipidemia Current Visit: Yes Status: Chronic Assessment and plan: Continue home medication (11) Morbid obesity Current Visit: Yes Status: Chronic Qualifiers: Obesity type: with alveolar hypoventilation Qualified Code(s): 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 (12) PAD (peripheral artery disease) Current Visit: Yes Status: Chronic (13) DVT prophylaxis Current Visit: No Status: Acute Assessment and plan: Coumadin is on hold because of GI bleeding. EPCD (14) Hypertension Current Visit: Yes Status: Acute Qualifiers: Hypertension type: essential hypertension Qualified Code(s): I10 - Essential (primary) hypertension (15) Chronic respiratory failure Current Visit: Yes Status: Chronic Qualifiers: Respiratory failure complication: hypoxia and hypercapnia Qualified Code(s) : J96.11 - Chronic respiratory failure with hypoxia; J96.12 - Chronic respiratory failure with hypercapnia - Subjective Interval history: Patient is a 71-year-old male admitted from residential for shortness of breath and desaturation. His past medical history is significant for UTI, A. fib, CHF, COPD, CAD, diabetes, CKD Patient was seen and examined. He still need high-level oxygen to maintain oxygen saturation. Patient tolerate nasal cannula during daytime. He is in no acute respiratory distress today. Vitals are stable. Patient has drop of hemoglobin, GI consult was called, however patient does refuse colonoscopy/ endoscopy. Patient is bedbound with possibly GI bleeding (hemoglobin drop with positive guaiac test), will discontinue Coumadin at this point, may consider aspirin for CVA prophylaxis in the future considering patient's general condition. - Constitutional Vitals: Temp Pulse Resp BP Pulse Ox 100.2 F H 66 20 114/62 97 07/02/16 15:13 07/02/16 15:13 07/02/16 16:10 07/02/16 15:13 07/02/16 16:10 General appearance: Present: A&O X 3, morbidly obese, pleasant, no acute distress, answers questions appropriately - Head Head exam: Present: atraumatic, normocephalic - Eye Eye exam: Present: PERRL, conjuntiva pink, sclera anicteric Pupils: Present: PERRL - Neck Neck exam general surgery: Present: supple, trachea midline. Absent: lymphadenopathy - Respiratory Respiratory exam: Present: CTAB. Absent: accessory muscle use, rales, rhonchi, wheezes - Cardiovascular Cardiovascular exam: Present: RRR, +S1, +S2. Absent: diastolic murmur, gallop, rubs, systolic murmur - GI/Abdominal GI/Abdominal exam: Present: normal bowel sounds, soft, no peritoneal signs. Absent: distended, tenderness - Extremities Exam Extremities exam: Present: warm, radial pulses palpable and symetrical. Absent : calf tenderness, cyanotic, pedal edema - Neurological Exam Neurological exam: Present: CN II-XII intact, oriented X3, no focal deficits. Absent: pronater drift, facial droop, speech deficit - Skin Skin exam: Present: dry, intact Internal Medicine: Result - Labs CBC & Chem 7: 07/02/16 04:40 07/02/16 04:40 Labs: Short CBC 07/02/16 Range/Units 04:40 WBC 10.3 (4.3-11.1) K/mcL Hgb 8.6 L (12.9-16.9) g/dL Hct 28.7 L (37.5-50.1) % Plt Count 269 (140-400) K/mcL Neutrophils # 8.0 (1.6-8.9) K/mcL BMP 07/02/16 04:40 Sodium 139 Potassium 5.3 H Chloride 100 Carbon Dioxide 30 H BUN 46 H Creatinine 1.23 Glucose 96 Calcium 9.0 - ABG Interpretation ABG results: ABG ABG pH 7.40 pH Units (7.32-7.45) 07/01/16 05:49 ABG pCO2 59 mmHg (35-45) H 07/01/16 05:49 ABG pO2 91 mmHg (85-104) 07/01/16 05:49 ABG O2 Saturation 97 % (95-98) 07/01/16 05:49 PT/INR, D-dimer PT 29.7 Seconds (9.4-12.1) H 07/02/16 04:40 Consult Discharge Plan - Plan Referrals: Joanna Chacko MD [Primary Care Provider] - (PT IS FROM [facility], NO PCP APPOINTMENT NEEDED)
[2016-07-02] MEDS: Insulin DETEMIR 100 UNIT/ML X5UNITS SQ SCH (21:21)
[2016-07-02] MEDS: Ertapenem 1,000 MG in 0.9 % Sodium Chloride Mini Bag 100 ML IVPB SCH (21:21)
[2016-07-02] MEDS: *HR* OxyCODONE Immed Rel 5 MG TABLET PO PRN (21:21)
[2016-07-03] MEDS: *HR* Morphine 2 MG/ML SYRINGE IVP PRN (00:37)
[2016-07-03] MEDS: Ipratropium/Albuterol Neb 3 ML IH SCH ×3 (04:12→16:04)
[2016-07-03 06:51] LABS: Basophils # 0.1 K/mcL (0.0-0.2); Basophils % 0.5 %; Eosinophils # 0.3 K/mcL (0.0-0.6); Eosinophils % 3.2 %; Hematocrit 28.2 % (37.5-50.1); Hemoglobin 8.4 g/dL (12.9-16.9); INR 2.7; Immature Granulocytes % 1.7 % (0-4); Lymphocytes # 1.3 K/mcL (0.6-4.6); Lymphocytes % 12.6 %; Mean Corpuscular HGB Conc 29.8 g/dL (31.6-35.5); Mean Corpuscular Hemoglobin 26.3 pg (28.0-33.3); Mean Corpuscular Volume 88.1 fL (83.0-100.0); Mean Platelet Volume 9.9 fL (9.4-12.4); Monocytes # 0.5 K/mcL (0.0-1.3); Monocytes % 4.8 %; Neutrophils # 7.7 K/mcL (1.6-8.9); Nucleated Red Blood Cells 0.4 /100 WBC (0); Platelet Count 272 K/mcL (140-400); Prothrombin Time 29.9 Seconds (9.4-12.1); Red Cell Distribution Width 15.3 % (11.5-14.5); Segmented Neutrophils % 77.2 %
[2016-07-03 07:02] LABS: BUN/Creatinine Ratio 34 (6-26); Blood Urea Nitrogen 43 mg/dL (8-26); Calcium 9.1 mg/dL (8.6-10.8); Carbon Dioxide 30 mEq/L (19-29); Chloride 97 mEq/L (98-109); Glucose 102 mg/dL (70-99); Osmolality,Calculated 289 (280-300); Potassium 5.5 mEq/L (3.5-4.5); Sodium 134 mEq/L (136-145); eGFR For African Americans > 60 (> 60); eGFR For Non-African Americans 57 (> 60)
[2016-07-03] MEDS: Isosorbide MONOnitrate (24 HR) 60 MG TAB.ER.24H PO SCH (08:11)
[2016-07-03] MEDS: tiZANidine 4 MG TABLET PO SCH ×4 (08:11→21:46)
[2016-07-03] MEDS: Sennosides/Docusate Sodium TABLET PO SCH ×2 (08:12→21:46)
[2016-07-03] MEDS: Diltiazem CD (24hr) 180 MG CAPSULE PO SCH (08:12)
[2016-07-03] MEDS: Magnesium Oxide 400 MG TABLET PO SCH ×2 (08:12→21:46)
[2016-07-03] MEDS: Gabapentin 300 MG CAPSULE PO SCH ×3 (08:13→21:45)
[2016-07-03] MEDS: Insulin LISPRO 300 UNITS/3 ML VIAL SQ SCH ×7 (08:16→21:48)
--- NOTE | 2016-07-03 11:57 | Infectious Disease Progress No ---
Date of Encounter: 07/03/16 Time of Encounter: 11:54 - Assessment and Plan (1) Sepsis Current Visit: Yes Status: Resolved The patient had two SIRS criteria plus JONELLE and acute encephalopathy. Likely secondary to UTI. Improved. WBC normal. The patient has been afebrile. His acute encephalopathy and JONELLE have resolved. Blood cultures drawn 06/19 x 2 sets and 06/20 x 2 sets are negative 4/ sets. Qualifiers: Sepsis type: sepsis due to unspecified organism Qualified Code(s): A41.9 - Sepsis, unspecified organism (2) UTI (urinary tract infection) Current Visit: No Status: Acute Causative organism E. coli ESBL and Proteus mirabilis. Likely secondary to chronic indwelling grajeda catheter. Grajeda catheter changed 06/25/16. Replaced again 06/26/16 due to catheter obstruction. Repeat urine culture is negative. Clinically, the patient appears to be improving. Continue Ertapenem 1 gram IV Q24H (day 7). Monitor renal function closely and dose-adjust antibiotics. Duration of treatment depends on the clinical picture, but likely 10-14 days. Treat through 07/11/15. Get weekly CBC and BMP while on antibiotics. Weekly powerglide care per protocol. Qualifiers: Urinary tract infection type: site unspecified Hematuria presence: without hematuria Qualified Code(s): N39.0 - Urinary tract infection, site not specified (3) Candiduria Current Visit: Yes Status: Acute Yeast noted on initial urinalysis. Repeat urinalysis showed no yeast. No indication to treat as the patient does not appear to have disseminated yeast infection and no plans for urinary tract manipulation. (4) Acute encephalopathy Current Visit: Yes Status: Resolved Likely multifactorial: sepsis + UTI + hypercapnia. Improved. (5) Acute kidney injury Current Visit: Yes Status: Resolved Nonoliguric. Serum creatinine >3 on arrival. Improved. Back at baseline. Nephrology consulted and has signed off. Continue nephro-protective strategy as outlined by the Nephrology team. Dose-adjust antibiotics based on creatinine clearance. (6) Acute and chronic respiratory failure with hypercapnia Current Visit: No Status: Acute Appears improved. Still requires BIPAP through the night. Management per the primary team. (7) Hyperkalemia Current Visit: Yes Status: Acute Improved. Serum potassium 5.5 today. Management per the primary team. (8) Left arm swelling Current Visit: Yes Status: Resolved Etiology unclear, but improved. No evidence of erythema or warmth to indicate an infectious process. The patient did have an IV to the NBA arm, but no evidence of infiltration noted. X-rays negative. Management per the primary team. (9) Chronic indwelling Grajeda catheter Current Visit: Yes Status: Chronic Secondary to BPH. Grajeda changed per the nursing staff 06/26/16. (10) Atrial fibrillation Current Visit: Yes Status: Chronic Qualifiers: Atrial fibrillation type: chronic Qualified Code(s): I48.2 - Chronic atrial fibrillation (11) CAD (coronary artery disease) Current Visit: Yes Status: Chronic Qualifiers: Coronary Disease-Associated Artery/Lesion type: [place] artery [place] vs. transplanted heart: [place] heart Associated angina: without angina Qualified Code(s): I25.10 - Atherosclerotic heart disease of [place] coronary artery without angina pectoris (12) DM2 (diabetes mellitus, type 2) Current Visit: Yes Status: Chronic Qualifiers: Diabetes mellitus complication status: with circulatory complication Diabetes mellitus complication detail: with other circulatory complications Diabetes mellitus snf insulin use: with rn long term care use Qualified Code(s) : E11.59 - Type 2 diabetes mellitus with other circulatory complications; Z79.4 - group home (current) use of insulin (13) Morbid obesity Current Visit: Yes Status: Chronic Qualifiers: Obesity type: with alveolar hypoventilation Qualified Code(s): 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 (14) PAD (peripheral artery disease) Current Visit: Yes Status: Chronic - Subjective Interval history: Patient seen and examined. No acute events noted overnight. Denies fevers or chills or rigors. Denies chest pain, shortness of breath, or cough. Currently off BIPAP and in no respiratory distress. Denies nausea, vomiting, or diarrhea. Denies abdominal pain. Grajeda catheter remains in place. States penile pain has resolved. Denies oral thrush. States LUE pain resolved. Infect Dis PN-Objective Data - Labs CBC & Chem 7: 07/03/16 05:51 07/03/16 05:51 Labs: Laboratory Results - last 24 hr 07/02/16 07/02/16 07/02/16 11:20 16:26 20:37 WBC RBC Hgb Hct MCV MCH MCHC RDW Plt Count MPV Immature Gran % Seg Neutrophils % Lymphocytes % Monocytes % Eosinophils % Basophils % Neutrophils # Lymphocytes # Monocytes # Eosinophils # Basophils # Nucleated RBCs/100 WBC PT INR Sodium Potassium Chloride Carbon Dioxide BUN Creatinine Est GFR ( Amer) Est GFR (Non-Af Amer) BUN/Creatinine Ratio Glucose POC Glucose 161 H 137 H 175 H Calculated Osmolality Calcium 07/03/16 07/03/16 07/03/16 05:51 05:51 05:51 WBC 9.9 RBC 3.20 L Hgb 8.4 L Hct 28.2 L MCV 88.1 MCH 26.3 L MCHC 29.8 L RDW 15.3 H Plt Count 272 MPV 9.9 Immature Gran % 1.7 Seg Neutrophils % 77.2 Lymphocytes % 12.6 Monocytes % 4.8 Eosinophils % 3.2 Basophils % 0.5 Neutrophils # 7.7 Lymphocytes # 1.3 Monocytes # 0.5 Eosinophils # 0.3 Basophils # 0.1 Nucleated RBCs/100 WBC 0.4 H PT 29.9 H INR 2.7 Sodium 134 L Potassium 5.5 H Chloride 97 L Carbon Dioxide 30 H BUN 43 H Creatinine 1.25 Est GFR ( Amer) > 60 Est GFR (Non-Af Amer) 57 L BUN/Creatinine Ratio 34 H Glucose 102 H POC Glucose Calculated Osmolality 289 Calcium 9.1 Cultures: Cultures 06/25/16 10:21 Urine Culture - Final Urine,Catheterized No growth. 06/20/16 22:06 Blood Culture - Final Peripheral Venipuncture No growth. 06/20/16 22:06 Blood Culture - Final Peripheral Venipuncture No growth. 06/23/16 02:49 Urine Culture - Final Urine,Catheterized No pathogens isolated. Serology 06/30/16 06/27/16 06/26/16 Range/Units 18:30 11:15 12:30 Urine Color Yellow (Yellow) Urine Clarity Turbid A (Clear) Urine pH 5.5 (5.0-8.0) pH Units Ur Specific [place] 1.016 (1.010-1.025) Urine Protein >=300 H (Neg-Trace) mg/dL Urine Glucose (UA) Normal (Normal) mg/dL Urine Ketones Negative (Negative) mg/dL Urine Blood Large H (Negative) Urine Nitrite Negative (Negative) Urine Bilirubin Negative (Negative) Urine Urobilinogen Normal (Normal) mg/dL Ur Leukocyte Esterase Small H (Negative) Urine Microscopic RBC 5-15 H (0-3) per hpf Urine Microscopic WBC 50-100 H (0-3) per hpf Ur Squamous Epith Cells Moderate H (None-Few) per lpf Amorphous Sediment (Few) Urine Bacteria Few (None-Few) per hpf Hyaline Casts None Seen (None-Few) per lpf Urine Mucus (Few) Urine Yeast Test Not Performed (None Seen) per hpf Urine Osmolality 314 (300-1090) mOsm/kg Urine Sodium 49.0 mEq/L Stool Occult Blood Positive A (Negative) 06/23/16 Range/Units 02:49 Urine Color Yellow (Yellow) Urine Clarity Cloudy A (Clear) Urine pH 5.0 (5.0-8.0) pH Units Ur Specific [place] 1.015 (1.010-1.025) Urine Protein 30 H (Neg-Trace) mg/dL Urine Glucose (UA) Normal (Normal) mg/dL Urine Ketones Negative (Negative) mg/dL Urine Blood Moderate H (Negative) Urine Nitrite Negative (Negative) Urine Bilirubin Negative (Negative) Urine Urobilinogen Normal (Normal) mg/dL Ur Leukocyte Esterase Large H (Negative) Urine Microscopic RBC 15-30 H (0-3) per hpf Urine Microscopic WBC TNTC H (0-3) per hpf Ur Squamous Epith Cells Few (None-Few) per lpf Amorphous Sediment Few (Few) Urine Bacteria Few (None-Few) per hpf Hyaline Casts None Seen (None-Few) per lpf Urine Mucus Few (Few) Urine Yeast Moderate H (None Seen) per hpf Urine Osmolality (300-1090) mOsm/kg Urine Sodium mEq/L Stool Occult Blood (Negative) Exam - Constitutional Vitals: Temp Pulse Resp BP Pulse Ox 98.1 F 56 18 159/87 100 07/03/16 07:21 07/03/16 07:21 07/03/16 07:21 07/03/16 07:21 07/03/16 07:21 General appearance: cooperative, morbidly obese, no acute distress - Head Head exam: Present: atraumatic, normal inspection, normocephalic - Eye Eye exam: Present: EOMI, normal appearance, PERRL Pupils: Present: normal accommodation - ENT ENT exam: Present: mucous membranes moist - Neck Neck exam: Present: normal inspection - Respiratory Respiratory exam: Present: CTAB, wheezes (faint exp wheeze ONEL). Absent: rales , respiratory distress, rhonchi - Cardiovascular Cardiovascular exam: Present: irregular rhythm. Absent: tachycardia - GI/Abdominal GI/Abdominal exam: Present: distended (obese), normal bowel sounds, soft. Absent: tenderness Additional comments: Grajeda catheter noted to be draining clear, dark yellow urine. - Extremities Exam Extremities exam: Present: normal inspection. Absent: joint swelling, pedal edema, tenderness Additional comments: Right AKA stump without erythema or edema. - Neurological Exam Neurological exam: Present: alert, oriented X3, no focal deficits - Psychiatric Psychiatric exam: Present: normal affect, normal mood - Skin Skin exam: Present: dry, intact, normal color, warm - Additional findings Additional findings: Powerglide EPIV noted to the RUE With transparent dressing C/D/I. Consult Discharge Plan - Plan Referrals: Joanna Chacko MD [Primary Care Provider] - (PT IS FROM [facility], NO PCP APPOINTMENT NEEDED)
--- NOTE | 2016-07-03 16:05 | Internal Med Progress Note ---
Date of Encounter: 07/03/16 Time of Encounter: 10:00 - Assessment and plan (1) Acute on chronic renal failure Current Visit: Yes Status: Acute Assessment and plan: Nonoliguric JONELLE on CKD stage III. renal function improved from previous day with good urine output will continue to avoid nephrotoxic agents continue to monitor renal profile Hyperkalemia noted: will give one time dose of Kayxelate Presently with ESBL UTI, acute respiratory failure Renal US: no hydronephrosis/abscess or abnormality reported Urine culture with Proteus Mirabilis ESBL, E. Coli ESBL Continue to monitor I/O REnal function at baseline good urine output noted Nephrology consultation appreciated. Improvement with renal function. (2) Anemia Current Visit: Yes Status: Acute Assessment and plan: Of unclear etiology s/p 2 unit PRBC transfusion(06/27/16) Will obtain stool occult positive but pt is on coumadin, possibly there is some bleeding previously. Guaiac positive. Hemoglobin dropped again. GI consult called but patient refused scopes. Hold Coumadin now, closely monitor H&H Plan to d/c back to [facility] if H/H has no further drop. Qualifiers: Anemia type: unspecified type Qualified Code(s): D64.9 - Anemia, unspecified (3) COPD with acute exacerbation Current Visit: Yes Status: Acute Assessment and plan: Continue duonebs, current regimen monitor O2 saturation (goal O2 sat: 89-92%) Continue antibiotic treatment. (4) Sepsis Current Visit: Yes Status: Resolved Assessment and plan: Secondary to ESBL UTI and Proteus mirabilis Afebrile since admission Leukocytosis persists but improved from previous day. Clinically patient is improving with good urine output and vitals within acceptable range Will continue Merem 1gm IV q8h at this time grajeda catheter changed (06/26/16) f/u repeat Urine cultures ID consultation appreciated Qualifiers: Sepsis type: sepsis due to unspecified organism Qualified Code(s): A41.9 - Sepsis, unspecified organism (5) Atrial fibrillation Current Visit: Yes Status: Chronic Assessment and plan: HR controlled, Continue patient's home meds Coumadin is on hold because of GI bleeding. Qualifiers: Atrial fibrillation type: chronic Qualified Code(s): I48.2 - Chronic atrial fibrillation (6) CAD (coronary artery disease) Current Visit: Yes Status: Chronic Assessment and plan: Chronic stable Qualifiers: Coronary Disease-Associated Artery/Lesion type: [place] artery [place] vs. transplanted heart: [place] heart Associated angina: without angina Qualified Code(s): I25.10 - Atherosclerotic heart disease of [place] coronary artery without angina pectoris (7) Chronic indwelling Grajeda catheter Current Visit: Yes Status: Chronic Assessment and plan: From [facility] changed grajeda cath 06/26/16 (8) DM2 (diabetes mellitus, type 2) Current Visit: Yes Status: Chronic Assessment and plan: Hyperglycemia persists Required 22units correctional insulin coverage in the last 24hours. continue Levemir to 50units qHS and Humalog to 20units TIDAC continue to monitor fingerstick and blood glucose continue sliding scale correctional insulin coverage as needed Qualifiers: Diabetes mellitus complication status: with circulatory complication Diabetes mellitus complication detail: with other circulatory complications Diabetes mellitus intermediate accountant insulin use: with intermediate accountant use Qualified Code(s) : E11.59 - Type 2 diabetes mellitus with other circulatory complications; Z79.4 - penitentiary (current) use of insulin (9) History of CHF (congestive heart failure) Current Visit: Yes Status: Chronic Assessment and plan: Chronic. No signs of exacerbation (10) History of hyperlipidemia Current Visit: Yes Status: Chronic Assessment and plan: Continue home medication (11) Morbid obesity Current Visit: Yes Status: Chronic Qualifiers: Obesity type: with alveolar hypoventilation Qualified Code(s): 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 (12) PAD (peripheral artery disease) Current Visit: Yes Status: Chronic (13) DVT prophylaxis Current Visit: No Status: Acute Assessment and plan: Coumadin is on hold because of GI bleeding. EPCD (14) Hypertension Current Visit: Yes Status: Acute Assessment and plan: Noted to be hypertensive this morning Increased Carvedilol to 25mg PO q12h continue to monitor HR and BP Repeat BP within acceptable limits Qualifiers: Hypertension type: essential hypertension Qualified Code(s): I10 - Essential (primary) hypertension (15) Chronic respiratory failure Current Visit: Yes Status: Chronic Assessment and plan: patient chronically on home oxygen and bipap support goal O2: 89-92% Bipap at bedtime continue to monitor Qualifiers: Respiratory failure complication: hypoxia and hypercapnia Qualified Code(s) : J96.11 - Chronic respiratory failure with hypoxia; J96.12 - Chronic respiratory failure with hypercapnia - Time Spent With Patient 25 - 35 minutes - Subjective Interval history: Patient is a 71-year-old male [facility] from [facility] for shortness of breath and desaturation. His past medical history is significant for UTI, A. fib, CHF, COPD, CAD, diabetes, CKD Patient was seen and examined. He still need high-level oxygen to maintain oxygen saturation. Patient tolerate nasal cannula during daytime. He is in no acute respiratory distress today. Vitals are stable. Patient has drop of hemoglobin, GI consult was called, however patient does refuse colonoscopy/ endoscopy. Patient is bedbound with possibly GI bleeding (hemoglobin drop with positive guaiac test), will discontinue Coumadin at this point, may consider aspirin for CVA prophylaxis in the future considering patient's general condition, d/w pt the risk and benefit, pt verbalized understanding and agreement.. - Constitutional Vitals: Temp Pulse Resp BP Pulse Ox 97.8 F 73 17 145/84 95 07/03/16 12:45 07/03/16 12:45 07/03/16 12:45 07/03/16 12:45 07/03/16 12:45 General appearance: Present: A&O X 3, morbidly obese, pleasant, no acute distress, answers questions appropriately - Head Head exam: Present: atraumatic, normocephalic - Eye Eye exam: Present: PERRL, conjuntiva pink, sclera anicteric Pupils: Present: PERRL - Neck Neck exam general surgery: Present: supple, trachea midline. Absent: lymphadenopathy - Respiratory Respiratory exam: Present: CTAB. Absent: accessory muscle use, rales, rhonchi, wheezes - Cardiovascular Cardiovascular exam: Present: RRR, +S1, +S2. Absent: diastolic murmur, gallop, rubs, systolic murmur - GI/Abdominal GI/Abdominal exam: Present: normal bowel sounds, soft, no peritoneal signs. Absent: distended, tenderness - Extremities Exam Extremities exam: Present: warm, radial pulses palpable and symetrical. Absent : calf tenderness, cyanotic, pedal edema Additional comments: Right-sided amputation - Neurological Exam Neurological exam: Present: CN II-XII intact, oriented X3, no focal deficits. Absent: pronater drift, facial droop, speech deficit - Skin Skin exam: Present: dry, intact Internal Medicine: Result - Labs CBC & Chem 7: 07/03/16 05:51 07/03/16 05:51 Labs: Short CBC 07/03/16 Range/Units 05:51 WBC 9.9 (4.3-11.1) K/mcL Hgb 8.4 L (12.9-16.9) g/dL Hct 28.2 L (37.5-50.1) % Plt Count 272 (140-400) K/mcL Neutrophils # 7.7 (1.6-8.9) K/mcL BMP 07/03/16 05:51 Sodium 134 L Potassium 5.5 H Chloride 97 L Carbon Dioxide 30 H BUN 43 H Creatinine 1.25 Glucose 102 H Calcium 9.1 - ABG Interpretation ABG results: ABG ABG pH 7.40 pH Units (7.32-7.45) 07/01/16 05:49 ABG pCO2 59 mmHg (35-45) H 07/01/16 05:49 ABG pO2 91 mmHg (85-104) 07/01/16 05:49 ABG O2 Saturation 97 % (95-98) 07/01/16 05:49 PT/INR, D-dimer PT 29.9 Seconds (9.4-12.1) H 07/03/16 05:51 Consult Discharge Plan - Plan Referrals: Joanna Chacko MD [Primary Care Provider] - (PT IS FROM [facility], NO PCP APPOINTMENT NEEDED)
[2016-07-03] MEDS: Ertapenem 1,000 MG in 0.9 % Sodium Chloride Mini Bag 100 ML IVPB SCH (21:47)
[2016-07-03] MEDS: Insulin DETEMIR 100 UNIT/ML X5UNITS SQ SCH (21:47)
[2016-07-04] MEDS: Ipratropium/Albuterol Neb 3 ML IH SCH ×4 (00:18→16:30)
[2016-07-04 05:48] LABS: INR 2.3; Prothrombin Time 25.1 Seconds (9.4-12.1)
[2016-07-04 05:59] LABS: BUN/Creatinine Ratio 36 (6-26); Blood Urea Nitrogen 43 mg/dL (8-26); Calcium 9.3 mg/dL (8.6-10.8); Carbon Dioxide 29 mEq/L (19-29); Chloride 98 mEq/L (98-109); Glucose 103 mg/dL (70-99); Osmolality,Calculated 291 (280-300); Potassium 5.4 mEq/L (3.5-4.5); Sodium 135 mEq/L (136-145); eGFR For African Americans > 60 (> 60); eGFR For Non-African Americans 59 (> 60)
[2016-07-04 06:04] LABS: Basophils % 0.4 %; Eosinophils # 0.4 K/mcL (0.0-0.6); Eosinophils % 4.6 %; Hematocrit 28.5 % (37.5-50.1); Hemoglobin 8.5 g/dL (12.9-16.9); Immature Granulocytes % 1.7 % (0-4); Lymphocytes % 10.6 %; Mean Corpuscular HGB Conc 29.8 g/dL (31.6-35.5); Mean Corpuscular Hemoglobin 25.8 pg (28.0-33.3); Mean Corpuscular Volume 86.4 fL (83.0-100.0); Mean Platelet Volume 9.5 fL (9.4-12.4); Monocytes # 0.3 K/mcL (0.0-1.3); Monocytes % 3.6 %; Neutrophils # 7.4 K/mcL (1.6-8.9); Nucleated Red Blood Cells 0.2 /100 WBC (0); Platelet Count 282 K/mcL (140-400); Red Cell Distribution Width 15.1 % (11.5-14.5); Segmented Neutrophils % 79.1 %
[2016-07-04] MEDS: Isosorbide MONOnitrate (24 HR) 60 MG TAB.ER.24H PO SCH (09:40)
[2016-07-04] MEDS: Diltiazem CD (24hr) 180 MG CAPSULE PO SCH (09:40)
[2016-07-04] MEDS: Insulin LISPRO 300 UNITS/3 ML VIAL SQ SCH ×4 (09:40→12:22)
[2016-07-04] MEDS: Gabapentin 300 MG CAPSULE PO SCH ×2 (09:41→14:56)
[2016-07-04] MEDS: Magnesium Oxide 400 MG TABLET PO SCH (09:41)
[2016-07-04] MEDS: tiZANidine 4 MG TABLET PO SCH ×2 (09:41→14:56)
[2016-07-04] MEDS: Sennosides/Docusate Sodium TABLET PO SCH (09:42)
--- NOTE | 2016-07-04 11:13 | Infectious Disease Progress No ---
Date of Encounter: 07/04/16 Time of Encounter: 11:11 - Assessment and Plan (1) Sepsis Current Visit: Yes Status: Resolved The patient had two SIRS criteria plus JONELLE and acute encephalopathy. Likely secondary to UTI. Improved. WBC normal. The patient has been afebrile. His acute encephalopathy and JONELLE have resolved. Blood cultures drawn 06/19 x 2 sets and 06/20 x 2 sets are negative 4/ sets. Qualifiers: Sepsis type: sepsis due to unspecified organism Qualified Code(s): A41.9 - Sepsis, unspecified organism (2) UTI (urinary tract infection) Current Visit: No Status: Acute Causative organism E. coli ESBL and Proteus mirabilis. Likely secondary to chronic indwelling grajeda catheter. Grajeda catheter changed 06/25/16. Replaced again 06/26/16 due to catheter obstruction. Repeat urine culture is negative. Clinically, the patient appears to be improving. Continue Ertapenem 1 gram IV Q24H (day 8). Monitor renal function closely and dose-adjust antibiotics. Duration of treatment depends on the clinical picture, but likely 10-14 days. Treat through 07/11/15. Get weekly CBC and BMP while on antibiotics. Weekly powerglide care per protocol. Qualifiers: Urinary tract infection type: site unspecified Hematuria presence: without hematuria Qualified Code(s): N39.0 - Urinary tract infection, site not specified (3) Candiduria Current Visit: Yes Status: Resolved Yeast noted on initial urinalysis. Repeat urinalysis showed no yeast. No indication to treat as the patient does not appear to have disseminated yeast infection and no plans for urinary tract manipulation. (4) Acute encephalopathy Current Visit: Yes Status: Resolved Likely multifactorial: sepsis + UTI + hypercapnia. Improved. (5) Acute kidney injury Current Visit: Yes Status: Resolved Nonoliguric. Serum creatinine >3 on arrival. Improved. Back at baseline. Nephrology consulted and has signed off. Continue nephro-protective strategy as outlined by the Nephrology team. Dose-adjust antibiotics based on creatinine clearance. (6) Acute and chronic respiratory failure with hypercapnia Current Visit: No Status: Acute Appears improved. Still requires BIPAP through the night. Management per the primary team. (7) Hyperkalemia Current Visit: Yes Status: Acute Improved. Management per the primary team. (8) Left arm swelling Current Visit: Yes Status: Resolved Etiology unclear, but improved. No evidence of erythema or warmth to indicate an infectious process. The patient did have an IV to the NBA arm, but no evidence of infiltration noted. X-rays negative. Management per the primary team. (9) Chronic indwelling Grajeda catheter Current Visit: Yes Status: Chronic Secondary to BPH. Grajeda changed per the nursing staff 06/26/16. (10) Atrial fibrillation Current Visit: Yes Status: Chronic Qualifiers: Atrial fibrillation type: chronic Qualified Code(s): I48.2 - Chronic atrial fibrillation (11) CAD (coronary artery disease) Current Visit: Yes Status: Chronic Qualifiers: Coronary Disease-Associated Artery/Lesion type: [place] artery [place] vs. transplanted heart: [place] heart Associated angina: without angina Qualified Code(s): I25.10 - Atherosclerotic heart disease of [place] coronary artery without angina pectoris (12) DM2 (diabetes mellitus, type 2) Current Visit: Yes Status: Chronic Qualifiers: Diabetes mellitus complication status: with circulatory complication Diabetes mellitus complication detail: with other circulatory complications Diabetes mellitus [facility] insulin use: with assignment agent use Qualified Code(s) : E11.59 - Type 2 diabetes mellitus with other circulatory complications; Z79.4 - physical education professor (current) use of insulin (13) Morbid obesity Current Visit: Yes Status: Chronic Qualifiers: Obesity type: with alveolar hypoventilation Qualified Code(s): 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 (14) PAD (peripheral artery disease) Current Visit: Yes Status: Chronic - Subjective Interval history: Patient seen and examined. No acute events noted overnight. Denies fevers or chills or rigors. Denies chest pain, shortness of breath, or cough. Back on BIPAP and in no respiratory distress. Denies nausea, vomiting, or diarrhea. Denies abdominal pain. Grajeda catheter remains in place. States penile pain has resolved. Denies oral thrush. States LUE pain resolved. Infect Dis PN-Objective Data - Labs CBC & Chem 7: 07/04/16 05:20 07/04/16 05:20 Labs: Laboratory Results - last 24 hr 07/03/16 07/03/16 07/03/16 07:26 12:35 16:35 WBC RBC Hgb Hct MCV MCH MCHC RDW Plt Count MPV Immature Gran % Seg Neutrophils % Lymphocytes % Monocytes % Eosinophils % Basophils % Neutrophils # Lymphocytes # Monocytes # Eosinophils # Basophils # Nucleated RBCs/100 WBC PT INR Sodium Potassium Chloride Carbon Dioxide BUN Creatinine Est GFR ( Amer) Est GFR (Non-Af Amer) BUN/Creatinine Ratio Glucose POC Glucose 107 H 142 H 134 H Calculated Osmolality Calcium 07/04/16 07/04/16 07/04/16 05:20 05:20 05:20 WBC 9.4 RBC 3.30 L Hgb 8.5 L Hct 28.5 L MCV 86.4 MCH 25.8 L MCHC 29.8 L RDW 15.1 H Plt Count 282 MPV 9.5 Immature Gran % 1.7 Seg Neutrophils % 79.1 Lymphocytes % 10.6 Monocytes % 3.6 Eosinophils % 4.6 Basophils % 0.4 Neutrophils # 7.4 Lymphocytes # 1.0 Monocytes # 0.3 Eosinophils # 0.4 Basophils # 0.0 Nucleated RBCs/100 WBC 0.2 H PT 25.1 H INR 2.3 Sodium 135 L Potassium 5.4 H Chloride 98 Carbon Dioxide 29 BUN 43 H Creatinine 1.21 Est GFR ( Amer) > 60 Est GFR (Non-Af Amer) 59 L BUN/Creatinine Ratio 36 H Glucose 103 H POC Glucose Calculated Osmolality 291 Calcium 9.3 Cultures: Cultures 06/25/16 10:21 Urine Culture - Final Urine,Catheterized No growth. 06/20/16 22:06 Blood Culture - Final Peripheral Venipuncture No growth. 06/20/16 22:06 Blood Culture - Final Peripheral Venipuncture No growth. 06/23/16 02:49 Urine Culture - Final Urine,Catheterized No pathogens isolated. Serology 06/30/16 06/27/16 06/26/16 Range/Units 18:30 11:15 12:30 Urine Color Yellow (Yellow) Urine Clarity Turbid A (Clear) Urine pH 5.5 (5.0-8.0) pH Units Ur Specific [place] 1.016 (1.010-1.025) Urine Protein >=300 H (Neg-Trace) mg/dL Urine Glucose (UA) Normal (Normal) mg/dL Urine Ketones Negative (Negative) mg/dL Urine Blood Large H (Negative) Urine Nitrite Negative (Negative) Urine Bilirubin Negative (Negative) Urine Urobilinogen Normal (Normal) mg/dL Ur Leukocyte Esterase Small H (Negative) Urine Microscopic RBC 5-15 H (0-3) per hpf Urine Microscopic WBC 50-100 H (0-3) per hpf Ur Squamous Epith Cells Moderate H (None-Few) per lpf Amorphous Sediment (Few) Urine Bacteria Few (None-Few) per hpf Hyaline Casts None Seen (None-Few) per lpf Urine Mucus (Few) Urine Yeast Test Not Performed (None Seen) per hpf Urine Osmolality 314 (300-1090) mOsm/kg Urine Sodium 49.0 mEq/L Stool Occult Blood Positive A (Negative) 06/23/16 Range/Units 02:49 Urine Color Yellow (Yellow) Urine Clarity Cloudy A (Clear) Urine pH 5.0 (5.0-8.0) pH Units Ur Specific [place] 1.015 (1.010-1.025) Urine Protein 30 H (Neg-Trace) mg/dL Urine Glucose (UA) Normal (Normal) mg/dL Urine Ketones Negative (Negative) mg/dL Urine Blood Moderate H (Negative) Urine Nitrite Negative (Negative) Urine Bilirubin Negative (Negative) Urine Urobilinogen Normal (Normal) mg/dL Ur Leukocyte Esterase Large H (Negative) Urine Microscopic RBC 15-30 H (0-3) per hpf Urine Microscopic WBC TNTC H (0-3) per hpf Ur Squamous Epith Cells Few (None-Few) per lpf Amorphous Sediment Few (Few) Urine Bacteria Few (None-Few) per hpf Hyaline Casts None Seen (None-Few) per lpf Urine Mucus Few (Few) Urine Yeast Moderate H (None Seen) per hpf Urine Osmolality (300-1090) mOsm/kg Urine Sodium mEq/L Stool Occult Blood (Negative) Exam - Constitutional Vitals: Temp Pulse Resp BP Pulse Ox 99.5 F 71 20 178/93 97 07/04/16 07:27 07/04/16 07:27 07/04/16 07:27 07/04/16 07:27 07/04/16 07:27 General appearance: cooperative, morbidly obese, no acute distress - Head Head exam: Present: atraumatic, normal inspection, normocephalic - Eye Eye exam: Present: EOMI, normal appearance, PERRL Pupils: Present: normal accommodation - ENT ENT exam: Present: mucous membranes moist - Neck Neck exam: Present: normal inspection - Respiratory Respiratory exam: Present: CTAB. Absent: rales, respiratory distress, rhonchi, wheezes - Cardiovascular Cardiovascular exam: Present: irregular rhythm. Absent: tachycardia - GI/Abdominal GI/Abdominal exam: Present: distended (obese), normal bowel sounds, soft. Absent: tenderness Additional comments: Grajeda catheter noted to be draining clear yellow urine. - Extremities Exam Extremities exam: Absent: joint swelling, pedal edema, tenderness Additional comments: Right AKA stump without erythema or edema. - Neurological Exam Neurological exam: Present: alert, oriented X3, no focal deficits - Psychiatric Psychiatric exam: Present: normal affect, normal mood - Skin Skin exam: Present: dry, intact, normal color, warm - Additional findings Additional findings: Powerglide EPIV noted to the RUE with transparent dressing C/D/I. Consult Discharge Plan - Plan Referrals: Joanna Chacko MD [Primary Care Provider] - (PT IS FROM [facility], NO PCP APPOINTMENT NEEDED)
--- NOTE | 2016-07-04 14:51 | Discharge Summary ---
Date of Encounter: 07/04/16 Time of Encounter: 12:00 - Discharge Diagnosis (1) Acute on chronic renal failure Priority: Primary Status: Acute (2) Anemia Priority: Primary Status: Acute Qualifiers: Anemia type: unspecified type Qualified Code(s): D64.9 - Anemia, unspecified (3) COPD with acute exacerbation Priority: Primary Status: Acute (4) Sepsis Priority: Primary Status: Resolved Qualifiers: Sepsis type: sepsis due to unspecified organism Qualified Code(s): A41.9 - Sepsis, unspecified organism (5) Atrial fibrillation Priority: Secondary Status: Chronic Qualifiers: Atrial fibrillation type: chronic Qualified Code(s): I48.2 - Chronic atrial fibrillation (6) CAD (coronary artery disease) Priority: Secondary Status: Chronic Qualifiers: Coronary Disease-Associated Artery/Lesion type: [place] artery [place] vs. transplanted heart: [place] heart Associated angina: without angina Qualified Code(s): I25.10 - Atherosclerotic heart disease of [place] coronary artery without angina pectoris (7) Chronic indwelling [place] catheter Priority: Secondary Status: Chronic (8) DM2 (diabetes mellitus, type 2) Priority: Secondary Status: Chronic Qualifiers: Diabetes mellitus complication status: with circulatory complication Diabetes mellitus complication detail: with other circulatory complications Diabetes mellitus terminal clerk insulin use: with terminal clerk use Qualified Code(s) : E11.59 - Type 2 diabetes mellitus with other circulatory complications; Z79.4 - ferry terminal agent (current) use of insulin (9) History of CHF (congestive heart failure) Priority: Secondary Status: Chronic (10) History of hyperlipidemia Priority: Secondary Status: Chronic (11) Morbid obesity Priority: Secondary Status: Chronic Qualifiers: Obesity type: with alveolar hypoventilation Qualified Code(s): 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 (12) PAD (peripheral artery disease) Priority: Secondary Status: Chronic (13) DVT prophylaxis Priority: Secondary Status: Acute (14) Hypertension Priority: Secondary Status: Acute Qualifiers: Hypertension type: essential hypertension Qualified Code(s): I10 - Essential (primary) hypertension (15) Chronic respiratory failure Priority: Secondary Status: Chronic Qualifiers: Respiratory failure complication: hypoxia and hypercapnia Qualified Code(s) : J96.11 - Chronic respiratory failure with hypoxia; J96.12 - Chronic respiratory failure with hypercapnia (16) GI bleeding Priority: Primary Status: Acute Qualifiers: GI bleed type/associated pathology: unspecified gastrointestinal hemorrhage type Qualified Code(s): K92.2 - Gastrointestinal hemorrhage, unspecified (17) UTI (urinary tract infection) Priority: Primary Status: Acute Qualifiers: Urinary tract infection type: site unspecified Hematuria presence: without hematuria Qualified Code(s): N39.0 - Urinary tract infection, site not specified - Discharge Medications Prescriptions: Aspirin Enteric Coated [Aspirin EC] 81 mg PO DAILY #30 tablet. Ertapenem [INVanz] 1,000 mg IVPB DAILY #6 vial Home Medications: Carvedilol [Coreg] 25 mg PO BID 12/14/14 [History] Isosorbide MONOnitrate (24 HR) [Imdur] 120 mg PO DAILY 12/14/14 [History] Lisinopril [Zestril] 40 mg PO DAILY 12/14/14 [History] Omeprazole [PriLOSEC] 20 mg PO DAILY 12/14/14 [History] Atorvastatin [Lipitor] 20 mg PO HS 01/21/15 [History] Citalopram [CeleXA] 20 mg PO DAILY 01/21/15 [History] Magnesium Oxide [Mag-Ox] 400 mg PO BID 01/21/15 [History] Ipratropium/Albuterol Neb [Duoneb] 3 ml IH Q6HR 02/13/15 [History] L. Acidophilus/Pectin, [place] [Acidophilus Probiotic Capsule] 1 cap PO BID 02/13 [History] Ferrous Sulfate 325 mg PO DAILY 03/16/15 [History] Furosemide [Lasix] 80 mg PO BID 03/16/15 [History] Gabapentin [Neurontin] 300 mg PO TID 03/16/15 [History] Diltiazem CD (24hr) [Cardizem CD] 180 mg PO DAILY 04/16/15 [History] Insulin ASPART [NovoLOG] 6 unit SQ TIDWM 04/16/15 [History] Vitamin B Complex/Vit C/Vit E [Stresstab] 1 tab PO DAILY 04/16/15 [History] Docusate [Colace] 100 mg PO BID PRN #0 capsule 04/25/15 [Rx] Montelukast [Singulair] 10 mg PO DAILY tablet 04/25/15 [Rx] Spironolactone [Aldactone] 25 mg PO DAILY tablet 04/25/15 [Rx] Cholecalciferol (Vitamin D3) [Vitamin D3] 50,000 unit PO QMONTH 03/21/16 [ History] Insulin DETEMIR [Levemir] 60 unit SQ HS 03/21/16 [History] Tizanidine HCl [Zanaflex] 2 mg PO QID 03/21/16 [History] Fluticasone/Salmeterol [Advair 500-50 Diskus] 1 puff IH BID 06/19/16 [History] Promethazine [Phenergan] 25 mg RC Q4H PRN 06/19/16 [History] Metformin HCl [Metformin HCl ER] 500 mg PO DAILY 06/21/16 [History] Aspirin Enteric Coated [Aspirin EC] 81 mg PO DAILY #30 tablet. 07/04/16 [Rx] Ertapenem [INVanz] 1,000 mg IVPB DAILY #6 vial 07/04/16 [Rx] Allergies/Adverse Reactions: Allergies No Known Allergies Allergy (Verified 03/16/15 20:15) Procedures/tests Complete & Pending: Procedures Performed prior 72 hours Category Date Time Status EV echocardiogram w enhance Routine Y 07/02/16 19:08 Completed - Notes to Outpatient Provider 1. Please continue Ertapenem 1 g iv daily for 6 more days until 07/10/16. Check CBC/BMP weekly during abx use. 2. Please repeat BMP in 2 days for hyperkalemia, strict low potassium diet. 3. Coumadin is on hold b/o GI bleeding. Reevaluate risk/benefit if there is no further bleeding (H/H drop) to determine if restart it. Placed on Aspirin 81mg po qd instead now. 4. BiPAP during night and as needed during daytime Date of admission: 06/20/16 21:33 Primary care physician: Joanna Chacko Consults: 06/20/16 21:58 Consult to Nephrology [CONS] Routine Consulting Provider: Kidney Susannah/GISELL/TAMRA/SOHAM Reason for Consult: JONELLE/CKD Time Notified: 21:59 Call Completed: No 06/21/16 06:13 Consult to Nutrition [CONS] Routine Comment: Consulting Provider: NUTRITION Reason for Dietary Consult: MST Score Consult to General Ledger Accountant [CONS] Routine Reason for SW Consult: patient is a patient of ECF, unable to answer many questions, no family present 06/21/16 18:05 Consult to Speech Therapy [CONS] Routine Comment: Evaluate, develop and implement POC Reason for Consult: Recurrent aspiration per NH Call Completed: No 06/26/16 10:29 Consult to Invasive Line Access Team [CONS] Routine Reason for Consult: patient on heparin drip for days, at least two more days to go. Multiple lab draws Line Type: EPIV 06/26/16 11:08 Consult to Infectious Diseases [CONS] Routine Consulting Provider: Infect[facility] [place] Reason for Consult: recurrent UTI with ESBL Call Completed: Yes 06/30/16 11:39 Consult to Physical Therapy [CONS] Stat Comment: Evaluate, develop and implement POC 07/02/16 08:10 Consult to Gastroenterology [CONS] Routine Consulting Provider: Gastroenterology [place] Reason for Consult: Drop H/H, pt is on coumadin Call Completed: No Discharging clinician: Leta Shelton Anticipated date of discharge: 07/04/16 - Patient Status Disposition: Transfer SNF Condition: Fair Functional capacity at discharge: bed bound Overall status at discharge: patient is back to baseline - Discharge Instructions Follow Up With: Joanna Chacko MD [Primary Care Provider] - (PT IS FROM [facility], NO PCP APPOINTMENT NEEDED) - Diet and Activity Activity: as per physical therapy Diet: diabetic diet, other (Mecanically altered renal diet, [place] thickened diet (No straw), Diabetes diet) Interval History: Mr. Sandoval is a 71 year old male past medical history atrial fibrillation CHF COPD coronary artery disease diabetes GERD hyperlipidemia hypertension VA CKD. Information obtained from medical records as well as nursing staff due to patient's respiratory status. According to staff patient resides at [facility] that he had an altered mental status was transferred to [facility] or evaluation. He was found patient had a UTI as well as dehydrated is admitted for further observation. According to medical records it appears the patient may have aspirated, there was also a decline in patient's renal function. The patient's respiratory status declined requiring BiPAP lab work revealed an elevated white count at 13.1 potassium 5.6 BUN 80 creatinine 3.24 glucose 251. He was transferred to [facility] for further treatment. Presently the patient appears in mild respiratory distress with labored respirations oxygen saturation drops to 88 with position change. He can only speak in short sentences. He is on BiPAP 10/6 FiO2 50% oxygen saturation 96% at rest. Lungs sounds are diminished with faint expiratory wheeze. He is alert oriented and following commands at this time. He denies any chest pain nausea palpitations. EKG ABG chest x-ray have been ordered stat. Reviewed this case with who agrees with plan. Hospital course: Mr. Sandoval is a 71 year old male admitted for COPD exacerbation and possible pneumonia. Patient was treated with antibiotics, steroids, and bronchodilator. His shortness of breath has improved after treatment. He was also found the ESBL UTI and leukocytosis, ID consult was called and saw patient. Antibiotics had been changed to ertapenem. After treatment, his white count has been get down, and has no fever. Patient has A. fib on Coumadin, he has hemoglobin dropped during hospitalization for twice, improved after transfusion. Guaiac test is positive, consider GI bleeding. GI consult was called, however patient refused scopes. His Coumadin is on hold, hemoglobin is stable after holding Coumadin for 3 days. We will continue to hold the Coumadin on discharge and change to aspirin for CVA prophylaxis. Patient has hyperkalemia and acute renal failure, nephrology consult was called, ARF has improved after treatment. I saw and examined the patient today. He is awake alert, oriented 3. In no acute respiratory distress. Vital signs stable. White count get down to 9.4. Patient has mild hyperkalemia, another dose of keyaxalate was given. Patient will keep on strict low potassium diet, f/u potassium in ECF. Patient will continue Ertapenem iv until 07/10 per ID recommendation. - Time Spent with Patient Total time spent providing and/or coordinating discharge services: 40 minutes Greater than 30 minutes - Constitutional Vitals: Temp Pulse Resp BP Pulse Ox 99.5 F 71 21 178/93 98 07/04/16 07:27 07/04/16 07:27 07/04/16 10:45 07/04/16 07:27 07/04/16 10:45 General appearance: Present: A&O X 3, morbidly obese, pleasant, no acute distress, answers questions appropriately - Head Head exam: Present: atraumatic, normocephalic - Eye Eye exam: Present: PERRL, conjuntiva pink, sclera anicteric Pupils: Present: PERRL - Neck Neck exam general surgery: Present: supple, trachea midline. Absent: lymphadenopathy - Respiratory Respiratory exam: Present: CTAB. Absent: accessory muscle use, rales, rhonchi, wheezes - Cardiovascular Cardiovascular exam: Present: RRR, +S1, +S2. Absent: diastolic murmur, gallop, rubs, systolic murmur - GI/Abdominal GI/Abdominal exam: Present: normal bowel sounds, soft, no peritoneal signs. Absent: distended, tenderness - Extremities Exam Extremities exam: Present: warm, radial pulses palpable and symetrical. Absent : calf tenderness, cyanotic, pedal edema - Neurological Exam Neurological exam: Present: CN II-XII intact, oriented X3, no focal deficits. Absent: pronater drift, facial droop, speech deficit - Skin Skin exam: Present: dry, intact
--- NOTE | 2016-07-04 15:23 | Physician Discharge Referral ---
ExtendedCare Referral Info Transfer To: F Provider in Charge after Transfer: Other - Diagnosis (1) Acute on chronic renal failure Status: Acute (2) Anemia Status: Acute (3) COPD with acute exacerbation Status: Acute (4) Sepsis Status: Resolved (5) Atrial fibrillation Status: Chronic (6) CAD (coronary artery disease) Status: Chronic (7) Chronic indwelling [place] catheter Status: Chronic (8) DM2 (diabetes mellitus, type 2) Status: Chronic (9) History of CHF (congestive heart failure) Status: Chronic (10) History of hyperlipidemia Status: Chronic (11) Morbid obesity Status: Chronic (12) PAD (peripheral artery disease) Status: Chronic (13) DVT prophylaxis Status: Acute (14) Hypertension Status: Acute (15) Chronic respiratory failure Status: Chronic (16) GI bleeding Status: Acute (17) UTI (urinary tract infection) Status: Acute - Transfer Medications Prescriptions: Aspirin Enteric Coated [Aspirin EC] 81 mg PO DAILY #30 tablet.dr [place]apenem [INVanz] 1,000 mg IVPB DAILY #6 vial Home Medications: Carvedilol [Coreg] 25 mg PO BID 12/14/14 [History] Isosorbide MONOnitrate (24 HR) [Imdur] 120 mg PO DAILY 12/14/14 [History] Lisinopril [Zestril] 40 mg PO DAILY 12/14/14 [History] Omeprazole [PriLOSEC] 20 mg PO DAILY 12/14/14 [History] Atorvastatin [Lipitor] 20 mg PO HS 01/21/15 [History] Citalopram [CeleXA] 20 mg PO DAILY 01/21/15 [History] Magnesium Oxide [Mag-Ox] 400 mg PO BID 01/21/15 [History] Ipratropium/Albuterol Neb [Duoneb] 3 ml IH Q6HR 02/13/15 [History] L. Acidophilus/Pectin, [place] [Acidophilus Probiotic Capsule] 1 cap PO BID 02/13 [History] Ferrous Sulfate 325 mg PO DAILY 03/16/15 [History] Furosemide [Lasix] 80 mg PO BID 03/16/15 [History] Gabapentin [Neurontin] 300 mg PO TID 03/16/15 [History] Diltiazem CD (24hr) [Cardizem CD] 180 mg PO DAILY 12/21/15 [History] Insulin ASPART [NovoLOG] 6 unit SQ TIDWM 04/16/15 [History] Vitamin B Complex/Vit C/Vit E [Stresstab] 1 tab PO DAILY 04/16/15 [History] Docusate [Colace] 100 mg PO BID PRN #0 capsule 04/25/15 [Rx] Montelukast [Singulair] 10 mg PO DAILY tablet 04/25/15 [Rx] Spironolactone [Aldactone] 25 mg PO DAILY tablet 04/25/15 [Rx] Cholecalciferol (Vitamin D3) [Vitamin D3] 50,000 unit PO QMONTH 03/21/16 [ History] Insulin DETEMIR [Levemir] 60 unit SQ HS 03/21/16 [History] Tizanidine HCl [Zanaflex] 2 mg PO QID 03/21/16 [History] Fluticasone/Salmeterol [Advair 500-50 Diskus] 1 puff IH BID 06/19/16 [History] Promethazine [Phenergan] 25 mg RC Q4H PRN 06/19/16 [History] Metformin HCl [Metformin HCl ER] 500 mg PO DAILY 06/21/16 [History] Aspirin Enteric Coated [Aspirin EC] 81 mg PO DAILY #30 tablet.dr 07/04/16 [Rx] Ertapenem [INVanz] 1,000 mg IVPB DAILY #6 vial 07/04/16 [Rx] Allergies/Adverse Reactions: Allergies No Known Allergies Allergy (Verified 03/16/15 20:15) - Respiratory Orders Oxygen / L per min (5), Other (BiPAP during night) Smoking Cessation: Smoking cessation has been advised. For more information, call the [place] Tobacco Quit Line at 3-460-LHGR-NOW. - Lab Orders Lab Orders: CBC (On Thursday (07/07)), Patrice 17 (On thursday (07/07)) - Advance Directives Code Status: Full Code - Rehabiliation Orders Rehab Orders: Evaluation for Physical Therapy, Evaluation for Occupational Therapy, Evaluation for Speech Therapy - Diet Orders No Concentrated Sweets, Pureed (Mecanically altered renal diet, [place] thickened diet (No straw), Diabetes diet), Renal CERTIFICATION: I certify that the transfer of the above named patient to an Extended Care Facility is necessary for the continuing treatment of the diagnosis listed. The above information is true and accurate reflection of patient's current condition. Confidential - Redisclosure prohibited without a patient's written consent.
[2016-07-04 15:31] VITALS: BP 157/87
== END 2016-07-04 17:00 | DRG 871 ==
LOC: 2NNU → SUATTDRO 21:33 → 2NENU 07-01 01:07
PROVIDERS: ADMIT Family Medicine; ATTEND Internal Medicine